=== PATIENT | male | born 1930 | race Caucasian/White ===

== ENCOUNTER 2016-12-16 02:58 | Inpatient (IN) | payer OTHER ==
[2016-12-16] VITALS (8 sets, daily range): BP systolic 102–136; BP diastolic 48–68
[~2016-12-16] VITALS: Ht 175.2 cm; Wt 68.1 kg
--- NOTE | ~2016-12-16 | PR ---
[place], [place] PROGRESS NOTE NAME: ROSEANNE RAMIREZ UNIT #: [id number] ROOM: 509 DOCTOR: ANJELICA GENAO MD BIRTHDATE: [birth year] DOS: 12/18/2016 SUBJECTIVE: The patient is doing better, does not have any complaints. He has been eating the pureed diet without a problem. OBJECTIVE: VITAL SIGNS: Graphic trend shows a pressure of 128/60, pulse of 57, respirations 22, temperature 97.9. LUNGS: Diminished breath sounds. No wheezes heard this morning. HEART: Regular. ABDOMEN: Soft. EXTREMITIES: Without any edema, chronic eschar of the heel. LABORATORY DATA: Urine culture shows Enterococcus faecalis, which is sensitive to ampicillin. Blood culture shows no bacterial growth. ASSESSMENT AND PLAN: 1. Aspiration pneumonia. The patient is on a pureed diet and is tolerating it. 2. Hypoxic respiratory failure from pneumonia, which is resolving. 3. Urinary tract infection with Enterococcus faecalis, adjustments in meds made. 4. Adult failure to thrive. The patient is awaiting precertification from the insurance company [facility]. ANJELICA GENAO MD CM:PNTRANS [phone] ANJELICA GENAO MD 12/19/16 0156 interface
--- NOTE | ~2016-12-16 | PR ---
[place], [place] PROGRESS NOTE NAME: ROSEANNE RAMIREZ UNIT #: [id number] ROOM: 509 DOCTOR: ANJELICA GENAO MD BIRTHDATE: [birth year] DOS: SUBJECTIVE: The patient's family was feeding him. He aspirated and developed a pneumonia. He has been kept n.p.o. for a speech study. OBJECTIVE: VITAL SIGNS: Graphic trend shows a pressure of 132/56, pulse of 74, respirations 20, temperature 98.2. LUNGS: Diminished breath sounds, scattered rhonchi, but clearer than yesterday. HEART: Regular. ABDOMEN: Soft, scaphoid. EXTREMITIES: Without any edema. Foot splints bilaterally. LABORATORY DATA: Urine culture shows heavy gram-positive cocci, no identification is available yet. ASSESSMENT AND PLAN: 1. Aspiration pneumonia, on IV antibiotics. 2. Hypoxic respiratory failure. Dr. Ramirez is following. The patient's hypoxemia seems to have corrected. 3. Urinary tract infection with gram-positive cocci. We will readjust antibiotics once we have the results of the cultures. 4. Adult failure to thrive, to go back to [place] when more stable. ANJELICA GENAO MD CM:PNTRANS [phone] ANJELICA GENAO MD 12/17/16 1039 interface
--- NOTE | ~2016-12-16 | PROC NOTE ---
[place], [place] PROCEDURE NOTE NAME: ROSEANNE RAMIREZ UNIT #: [id number] ROOM: 509 DOCTOR: KOSTAS AVILES BIRTHDATE: [birth year] DOS: 12/17/2016 MODIFIED BARIUM SWALLOW LOCATION: [facility], room 509, bed 1. DOCTOR: Dr. Quesada. RADIOLOGIST: Dr. Olea. BACKGROUND INFORMATION: The patient is an 86-year-old male who was seen for modified barium swallow. This test was ordered to rule out aspiration. The patient was observed coughing and choking at bedside when being fed by family. The patient is diagnosed with pneumonia and COPD. Further medical history includes BPH. The patient is currently n.p.o. For today's assessment, he was alert with generalized weakness. He was able to follow simple commands. The patient was wearing oxygen via nasal cannula. Oral peripheral examination reviewed edentulous status. Lingual and labial skills were within functional limits in terms of strength, range of motion and coordination. Buccal skills were weak. The patient was able to volitionally cough. He was unable to volitionally swallow. METHODS AND MATERIALS USED FOR THE EXAM: The patient was positioned in the lateral plane and the examination was viewed under fluoroscopy. The patient was presented with a variety of consistencies to assess swallowing skills including applesauce mixed with barium presented in half teaspoon amounts and both nectar and honey-thick barium taken by cup in single sip size amounts. ORAL PHASE: The patient achieved adequate labial seal around cup and spoon with no anterior loss. Bolus formation and transit were mildly impaired with all consistencies. Piecemeal swallow of these consistencies was also displayed. The patient exhibited adequate tongue to palate contact. Tongue to posterior pharyngeal wall contact was mildly impaired with all consistencies. Velar functioning was within normal limits. PHARYNGEAL PHASE: The pharyngeal phase occurred within a timely manner. His swallow was weak in general. Following the swallow residue was observed in the vallecula. This cleared with cues to re-swallow. Transient penetration occurred with nectar thick liquid. No penetration occurred with honey-thick barium. There was no aspiration with any consistency. ESOPHAGEAL PHASE: This phase of the swallow was not formally assessed during this examination. IMPRESSIONS AND RECOMMENDATIONS: Based upon assessment results, this 86-year-old patient exhibited a mild oropharyngeal dysphagia. Bolus formation and oral transit were impaired with all given consistencies. Residue was observed in the pharynx post-swallow, but cleared with cues to re-swallow Transient penetration occurred with nectar liquid. Recommend pureed diet with honey-thick liquids. Recommend the patient be seated upright for meals, given [place], [place] PROCEDURE NOTE NAME: ROSEANNE RAMIREZ UNIT #: [id number] ROOM: [facility] DOCTOR: KOSTAS AVILES BIRTHDATE: [birth year] small bites and sips, and cues to double swallow to clear residue. Follow up therapy is recommended, focusing on strengthening exercises strategies and education to ensure safety with highest level diet. Results and recommendations were shared with the patient's nurse who verbalized understanding. Thank you very much for this referral. Should you have any questions regarding this patient, please contact the speech pathologist at [phone]. KOSTAS AVILES CM:PROCNOTE:PROCEDURE NOTE [id number] KOSTAS AVILES
--- NOTE | ~2016-12-16 | PR ---
[place], [place] PROGRESS NOTE NAME: ROSEANNE RAMIREZ UNIT #: [id number] ROOM: 509 DOCTOR: INDIA TALAMANTES MD BIRTHDATE: [birth year] DOS: 12/17/2016 PULMONARY PROGRESS NOTE SUBJECTIVE: He has been noted much more awake and alert this morning. He has not been noted symptoms of chest pain. The patient has been noted with some coughing, but there was no sputum expectoration. He has a chest x-ray, PA and lateral view repeated yesterday. OBJECTIVE: VITAL SIGNS: Showed normal temperature, respiratory rate 20, heart rate 74, blood pressure 132/56. Pulse oxygen saturation on 2 liters nasal cannula 96% saturation. HEENT: Examination shows no new change. NECK: Supple. CARDIOVASCULAR SYSTEM: S1, S2 audible. LUNGS: For the patient was noted without any wheezing or crackles at the present time. ABDOMEN: Flat, soft, nontender. EXTREMITIES: Shows no edema, clubbing or cyanosis. LABORATORY DATA: Labs on this patient. The chest x-ray of the patient that was done for the patient yesterday for this patient was reviewed, PA and lateral view for this patient shows patchy infiltration was noted in the lower lungs bilaterally. IMPRESSION: 1. The patient who has been currently admitted to the hospital, being treated for patient with bilateral lower lobe pneumonia, which has been noted more clearly visible with the chest x-ray of yesterday. 2. Rule out left hilar mass as well. 3. History of chronic obstructive pulmonary disease and benign prostatic hypertrophy. PLAN OF TREATMENT: Continue antibiotics for the patient, close monitoring with continued current antibiotic. The patient has been ordered the modified barium swallow for the patient to be done for this patient today for further assessment. Continue other previous treatment therapy, plan of management. Usual care. Supportive plan of management and other care. [place], [place] PROGRESS NOTE NAME: ROSEANNE RAMIREZ UNIT #: [id number] ROOM: 509 DOCTOR: INDIA TALAMANTES MD BIRTHDATE: [birth year] INDIA GAMEZ MD CM:PNTRANS [phone] INDIA SHAH MD 12/17/162204 interface
--- NOTE | ~2016-12-16 | PR ---
[place], [place] PROGRESS NOTE NAME: [id number] UNIT #: [id number] ROOM: 509 DOCTOR: ANJELICA GENAO MD BIRTHDATE: [birth year] DOS: 12/19/2016 SUBJECTIVE: The patient is about the same does not have any new changes. He is resting comfortably. PHYSICAL EXAMINATION: VITAL SIGNS: Blood pressure is 128/62, pulse of 64, respirations 20, temperature 97.2. LUNGS: Diminished breath sounds. No wheezes, rales or rhonchi heard this morning. HEART: Regular. ABDOMEN: Obese, soft, nontender. EXTREMITIES: Without any edema, chronic eschar of the heels. LABORATORY DATA: Urine culture, Enterococcus faecalis. ASSESSMENT AND PLAN: 1. Aspiration pneumonia, improving. 2. Modified barium swallow showing evidence of aspiration, doubt appropriate diet was started. 3. Urinary tract infection with Enterococcus faecalis. 4. Adult failure to thrive following a hip fracture. 5. 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 6. 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 7. Iron deficiency anemia. 8. Major depression, mild, recurrent. 9. Hypoxic respiratory failure. 10. Mild protein calorie malnutrition. MEDICATIONS ON DISCHARGE: Will be Cipro 500 mg twice daily for 5 days, tamsulosin 0.4 mg daily, iron 325 daily, multivitamin 1 tablet daily, Remeron 15 at bedtime, Percocet 5 q. 6 p.r.n., DuoNebs q. 6 p.r.n., Avodart 0.5 daily, Santyl for local application, ____ [address] Dickson as an outpatient for possible suprapubic catheter placement. Macrodantin 100 mg q.i.d. for 5 days. The patient is 86 years old, comes in with complaints of difficulty breathing and hypoxemia. Please refer H and P for details. After the patient was seen in the Emergency Room, he was diagnosed with pneumonia, he was admitted. After admission, he was placed on IV antibiotics. He was found to be choking on food, so he is kept n.p.o. Modified barium swallow was performed. Dr. Ramirez also saw the patient in consultation. ESR was elevated at 62. Modified barium swallow showed that the patient indeed did aspirate and the recommendation from speech was to pureed diet with ____ in his water, but for consistency of honey thick. Make sure the patient also get small bites and sips and double swallows to clear residue. The patient has done well, one well after the dietary change was initiated. He has not had any cough or wheezing spells, so the plan therefore is to discharge him to home. Urine culture did come back showing Enterococcus faecalis, which is resistant to Cipro, but sensitive to Macrobid. Blood cultures have come back negative. MRSA of the nares was negative. The patient [place], [place] PROGRESS NOTE NAME: ROSEANNE RAMIREZ UNIT #: [id number] ROOM: 509 DOCTOR: ANJELICA GENAO MD BIRTHDATE: [birth year] is overall stable and improved. The plan is to continue physical therapy at the assisted. PT/OT has been working with him here. Social service has been consulted for discharge back to the assisted. ANJELICA GENAO MD CM:PNTRANS [phone] ANJELICA GENAO MD 12/19/16 0757 interface
--- NOTE | ~2016-12-16 | PR ---
[place], [place] PROGRESS NOTE NAME: ROSEANNE RAMIREZ UNIT #: [id number] ROOM: 509 DOCTOR: INDIA TALAMANTES MD BIRTHDATE: [birth year] DOS: 12/19/2016 PULMONARY FOLLOWUP NOTE SUBJECTIVE: He has been noted comfortable at this time, eating his breakfast. He has not been noted with symptoms of chest pain or any abdominal pain. Coughing and chest congestion of the patient has been gradually subsiding. OBJECTIVE: VITAL SIGNS: Shows normal temperature, respiratory rate 18, heart rate of 58-64, blood pressure 135/56-128/62. Pulse oxygen saturation of the patient recorded on 2 liters nasal cannula 97% saturation. HEENT: Examination shows no new change. CARDIOVASCULAR SYSTEM: S1, S2 audible. LUNGS: The patient was noted without any wheeze or crackles at the present time. ABDOMEN: Soft, nontender. LABORATORY DATA: Labs on this patient. Chest x-ray of the patient, PA lateral view of the patient that was done this morning show small basilar area of infiltration noted more pronounced in the right and the left lower lobe. The chest x-ray of today was compared to the previous chest x-ray, which was done on this patient of 12/16 for the patient noted with patchy infiltration noted with interval development of small pleural fluid suspected. IMPRESSION: 1. The patient with, appears like a pleural fluid for the patient with area of infiltration atelectasis with acute aspiration pneumonia was noted. Congestive heart failure for the patient with fluid overload for the patient was suspected. 2. Overall severe debility. PLAN OF TREATMENT: The patient will be started on the diuretic for patient as orally of Lasix. Other supportive therapy, plan and management. I also ordered the potassium for this patient as well. The labs for the patient for monitoring of BUN and creatinine and electrolytes was ordered. Repeat chest x-ray in a couple of days for the patient to reassess the patient's response to the current treatment. [place], [place] PROGRESS NOTE NAME: ROSEANNE RAMIREZ UNIT #: [id number] ROOM: 509 DOCTOR: INDIA TALAMANTES MD BIRTHDATE: [birth year] INDIA GAMEZ MD CM:PNTRANS [phone] INDIA SHAH MD 12/19/16 232 interface
--- NOTE | ~2016-12-16 | PR ---
[place], [place] PROGRESS NOTE [id number] #: [id number] ROOM: 509 DOCTOR: ANJELICA GENAO MD BIRTHDATE: [birth year] DOS: 12/16/2016 HISTORY OF PRESENT ILLNESS: This patient is 86 years old, resident of [facility], was brought in with complaints of shortness of breath. This morning, the patient is sleepy, does not have any complaints. He denies having any chest pains, palpitations, and he seems to be breathing easier than what I was told during the night. PAST MEDICAL HISTORY: Significant for: 1. Multiple hospital admissions with pneumonia. 2. History of fracture of the femur with frailty and falls. 3. Recent hospitalization with acute renal failure from acute retention of urine with a chronic Ambrocio catheter. He is supposed to see Dr. Dickson as an outpatient. 4. Hypoxic respiratory failure. 5. Protein calorie malnutrition. 6. Mild major depression. MEDICATIONS: His medications currently that he is on are breathing treatments, Avodart, iron, mirtazapine, multivitamin, Percocet, tamsulosin. SOCIAL HISTORY: Smoker of about 1/2-1 pack of cigarettes a day. Denies using any alcohol. OBJECTIVE EXAMINATION: GENERAL: He is awake and alert and oriented. Does not appear to be in whole lot of respiratory distress this morning. He was quite short of breath yesterday before he was sent out to the Emergency Room. VITAL SIGNS: Shows a temperature of 99.5, pulse of 78, respirations 18, blood pressure 130/70. LUNGS: Diminished breath sounds. A few scattered rhonchi heard bilaterally. HEART: Regular. ABDOMEN: Obese, soft, nontender. EXTREMITIES: Without any edema. Eschar present on both heels. ASSESSMENT AND PLAN: 1. The patient who presents with pneumonia, possible gram-negative bilateral. The patient is placed on IV antibiotics. 2. Acute hypoxic respiratory failure. The patient has a consultation with Dr. Ramirez. Oxygen supplementation to be ordered. 3. Adult failure to thrive. The patient will need continued PT, OT. 4. Recent hip fracture. I will keep him off the Percocet for right now. Continue Tylenol. 5. 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 The patient is to see Dr. Dickson as an outpatient. [place], [place] PROGRESS NOTE NAME: ROSEANNE RAMIREZ UNIT #: [id number] ROOM: 509 DOCTOR: ANJELICA GENAO MD BIRTHDATE: [birth year] ANJELICA GENAO MD CM:PNALIVIA [phone] ANJELICA GENAO MD 12/16/16 1202 interface
--- NOTE | ~2016-12-16 | PR ---
[place], [place] PROGRESS NOTE NAME: ROSEANNE RAMIREZ UNIT #: [id number] ROOM: 509 DOCTOR: INDIA TALAMANTES MD BIRTHDATE: [birth year] DOS: 12/18/2016 SUBJECTIVE: He has been noted comfortable at this time responding to the treatment. The patient has not been noted any symptoms of chest congestion at this time. Coughing has been subsiding. Urine culture noted with enterococcus species as well. OBJECTIVE: VITAL SIGNS: For the patient, which has been recorded showed the temperature of the patient recorded normal, respiratory rate 20, heart rate 69, blood pressure 111/53-128/60. Pulse oxygen saturation for the patient on 2 liters nasal cannula 94% saturation. HEENT: Examination shows head was atraumatic. Eyes nonicterus. NECK: Supple. CARDIOVASCULAR: S1, S2 is audible. LUNGS: For this patient was noted without any wheezing. Basilar crackles are noted. ABDOMEN: Soft, nontender. LABORATORY DATA: Urine culture was noted with evidence of Enterococcus taken on the of this month. Blood cultures shows no bacterial growth. The patient has a completion of modified barium swallow done yesterday for this patient was described as there was some stasis noted in the vallecula for this patient with passive transient penetration noted nectar thick consistency. IMPRESSION: 1. Acute bilateral basilar aspiration pneumonia. 2. Urinary tract infection was noted as well. 3. Chronic obstructive pulmonary disease. 4. Benign prostatic hypertrophy. PLAN OF TREATMENT: Order the CT scan of the chest patient with IV contrast for the patient to assess the left hilar area if necessary after review of the CT scan for tomorrow, which has been ordered. Assess the pneumonia. Continue the previous therapy, plan of management and care. Usual care. Other supportive plan of management and treatments. [place], [place] PROGRESS NOTE NAME: ROSEANNE RAMIREZ UNIT #: [id number] ROOM: 509 DOCTOR: INDIA TALAMANTES MD BIRTHDATE: [birth year] INDIA GAMEZ MD CM:PNTRANS [phone] INDIA SHAH MD 12/19/16 0240 interface
--- NOTE | ~2016-12-16 | CON ---
[place], [place] REPORT OF CONSULTATION NAME: ROSEANNE RAMIREZ UNIT #: [id number] ROOM: 509 DOCTOR: FRANCO SHAH MD,INDIA BIRTHDATE: [birth year] DOS: 12/16/2016 PULMONARY CONSULTATION EVALUATION AND MANAGEMENT CONSULTATION REQUESTED BY: Robyn Quesada MD REASON FOR CONSULTATION: Assess the patient for acute pneumonia management. HISTORY OF PRESENT ILLNESS: An 86-year-old white male who has been a noted resident of [facility] patient. He has been brought to the hospital, the patient in the Emergency Room. The patient has been assessed in the Emergency Room via ambulance. The patient has been noted with symptoms of coughing as well as described with possibly pneumonia with a chest x-ray, which has been done. The patient has been admitted to the hospital for further medical management. He has not been able to give me any history. All the history of the patient noted extremely limited for this patient because of the patient's inability to cooperate and give any history and have a meaningful conversation. PAST MEDICAL HISTORY: The patient has been reported for this patient history of: 1. COPD. 2. BPH. 3. History of right hip fracture and left hip fracture. 4. Herniated disk of the lower back. 5. History of urinary retention. SOCIAL HISTORY: The patient is a resident of a skilled nursing. The history of tobacco use was noted previously. There was no history of alcohol or illicit drug use. The details about tobacco use were unknown. PAST SURGICAL HISTORY: Noted with a left hip and the right hip arthroplasty in the past. FAMILY HISTORY: Noted for cancer. MEDICATIONS: Which has been administered at the nursing facility for this patient were noted with medication reconciliation list for this patient obtained by the nursing staff as the use of DuoNeb, Avodart, ferrous sulfate, Remeron, multivitamin, Percocet, Flomax, and other p.r.n. medications as well as management of the wounds of the coccyx. DRUG ALLERGY HISTORY: THE PATIENT WAS NOTED ALLERGY: 1. PENICILLIN. 2. SULFA DRUGS. 3. CHLORAMINE. 4. PROZAC. PHYSICAL EXAMINATION: GENERAL: This is an 86-year-old white male who has been noted comfortably lying [place], [place] REPORT OF CONSULTATION NAME: ROSEANNE RAMIREZ UNIT #: [id number] ROOM: 509 DOCTOR: FRANCO SHAH MD,INDIA BIRTHDATE: [birth year] in the bed without any distress, does not have any verbal communication. The patient appeared to be mildly lethargic at this time as well. VITAL SIGNS: The height for the patient noted as 5 feet 9 inches, weight of 150 pounds. BMI 22. Vital signs for the patient, which have been recorded shows the temperature recorded as normal, respiratory rate 18-20, heart rate 69-72, blood pressure 115/60-134/60. Intake for the patient recorded as ____ mL since admission. Pulse oxygen saturation on 2 L nasal cannula was 94% saturation recorded. HEENT: Examination shows head was atraumatic. Eyes nonicterus. CARDIOVASCULAR SYSTEM: S1, S2 audible. LUNGS: The patient was noted with moderate reduction of the breath sounds were noted in the lungs bilaterally for this patient without any wheezing. Occasional crackles are present in the left and the right lung base. ABDOMEN: Soft, nontender, flat. EXTREMITIES: The patient showed no edema, clubbing or cyanosis. LABORATORY DATA: Chest x-ray that was done for this patient on this admission was personally reviewed, shows evidence of small infiltration noted in the left lower lung for this patient. The chest x-ray was rotated giving appearance of a large left hilar area for this patient most likely as a result of that. The left lung was noted clear of any acute pulmonary infiltration. Change in COPD, hyperinflation of the patient was also observed for patient because of large lung volumes. CBC that was done for the patient on 12/16/2016, hemoglobin 9.2, hematocrit 30.3, WBC count and platelet count were normal. CMP of the patient on 12/08/2016, normal BUN and creatinine for this patient. Troponin was normal. ESR for the patient, 12/16/2016 was elevated at 62. IMPRESSION: 1. Possibility of acute aspiration pneumonia, the patient currently coughing. The patient's right lower lobe was suspected. 2. Rule out any left hilar problem. The patient with lymphadenopathy mass lesion with appropriate position chest x-ray and also consider CT scan of the chest if necessary for further assessment if the x-ray for the patient PA and lateral was not able to answer this question. Bronchodilator will be continued. Continue antibiotic. The patient with current acute pneumonia of the patient with gram-positive organisms. Other supportive therapy, plan of management. Usual treatment, other plan of care. Blood cultures will be monitored. Sputum culture will be obtained. The patient is able to expectorate any sputum for this patient as well. In the meantime monitoring cultures of the blood. Other supportive plan of care. Further treatment changes will be done based on progression of the illness. At this time of assessment, the patient does not show any symptoms and finding consistent with acute exacerbation of COPD; however, this will be closely monitored since the patient may develop acute exacerbation of chronic obstructive pulmonary disease with the current acute pulmonary infection. [place], [place] REPORT OF CONSULTATION NAME: ROSEANNE RAMIREZ UNIT #: [id number] ROOM: [facility] DOCTOR: INDIA TALAMANTES MD BIRTHDATE: [birth year] INDIA GAMEZ MD CM:CONSTR:REPORT OF CONSULTATION 1224 12/17/16 0455 interface
[~2016-12-16 02:58] MED LIST: ANTIBIOTIC O500 U/GM TP; ANTIVERT/2525 MG PO; AVODART0.5 M1 PO; B12,B-12,B 12500 MCG PO; B121000 MCG/1 IM; CELEBREX200 MG PO; CIPRO500 MG PO; CIPROFLOXACIN500 MG PO; COMPLETE SENIOR1 TA1 PO; DOXYCYCLINE100 M3 PO; DUONEB 3 MG/3 ML3 M1 NEB; FEROSUL325 MG PO; FLOMAX0.4 MG PO; LEVAQUIN LEVA-750 MG PO; LEVAQUIN750 MG PO; LORTAB 10/500 51 TA1 PO; LORTAB 10/500 51 TAB PO; LORTAB 5/3251 TAB PO; LOVENOX30 MG/0.3 SC; MEGACE 40400 MG/10 PO; MIRTAZAPINE15 M2 PO; MOBIC7.5 MG PO; MUCINEX ER600 MG PO; MUCINEX600 MG PO; NAPRELAN750 MG PO; NORCO 325 MG-51 TAB PO; PERCOCET 325 MG1 TA2 PO; PREDNICOT20 MG PO; PREDNISONE20 MG PO; PROTONIX20 MG PO; Percocet 325 MG1 TAB PO; ULCER MED; VITAMIN B COMPL1 CAP PO; VITAMIN C500 M4 PO; VITAMIN C500 MG PO; VITAMIN E100 I1 PO; Ventolin 02.5 MG/3 M INH; XANAX0.25 MG PO; ZANTAC150 MG PO
[2016-12-16 03:20] LABS: BASO # 0.1 10*3/uL (0.0-0.1); BASO % 0.5 % (0.0-1.0); EOS # 0.4 10*3/uL (0.0-0.4); EOS % 3.8 % (1.0-4.0); HEMATOCRIT 30.3 % (42.0-52.0); HEMOGLOBIN 9.2 g/dl (14.0-18.0); IG # 0.1 10*3/uL (0.0-0.1); LYMPH # 3.1 10*3/uL (1.3-4.4); LYMPH % 32.5 % (27.0-41.0); MEAN CORPUSCULAR HGB 24.6 pg (27.0-31.0); MEAN CORPUSCULAR HGB CONC 30.4 g/dl (33.0-37.0); MEAN PLATELET VOLUME 8.1 fl (9.6-12.3); MONO # 0.9 10*3/uL (0.1-1.0); MONO % 9.1 % (3.0-9.0); NEUT # 5.1 10*3/uL (2.3-7.9); NEUT % 53.5 % (47.0-73.0); PLATELET COUNT AUTOMATED 264 10*3/uL (130-400); RED BLOOD COUNT 3.74 10*6/uL (4.50-5.90); RED CELL DISTRI WIDTH 24.6 % (0-14.5); WHITE BLOOD COUNT 9.5 10*3/uL (4.8-10.8)
[2016-12-16 03:38] LABS: ALBUMIN 2.2 gm/dl (3.1-4.5); ALKALINE PHOSPHATASE 59 U/L (45-117); BILIRUBIN, TOTAL 0.3 mg/dl (0.2-1.0); BUN 21 mg/dl (7-24); CARBON DIOXIDE 28 mmol/L (21-32); CHLORIDE 110 mmol/L (98-107); EST GLOM FILT AFRICAN AMERICAN > 60 ml/min; GLUCOSE 79 mg/dL (65-99); POTASSIUM 4.4 mmol/L (3.5-5.1); SGOT/AST 11 IU/L (3-35); SGPT/ALT 15 U/L (12-78); SODIUM 145 mmol/L (136-145); TOTAL PROTEIN 6.6 gm/dL (6.4-8.2)
[2016-12-16 03:39] LABS: TROPONIN I < 0.015 ng/ml (<0.045)
[2016-12-16] MEDS ORDERED: SANTYL250 U/GM T (03:44)
[2016-12-16 04:23] LABS: BILIRUBIN NEGATIVE (NEGATIVE); BLOOD 2+ (NEGATIVE); CLARITY SL CLOUDY (CLEAR); COLOR YELLOW (YELLOW); GLUCOSE NEGATIVE (NEGATIVE); KETONE NEGATIVE (NEGATIVE); LEUKO ESTERASE 2+ (NEGATIVE); NITRITE NEGATIVE (NEGATIVE); PH 5.5 (5.0-9.0); PROTEIN TRACE (NEGATIVE); UROBILINOGEN 0.2 E.U./dl (0.2-1.0)
[2016-12-16 04:30] LABS: BACTERIA 2+; RBC 31-40 rbc/hpf (0-2); URINE REFLEX COMMENT YES (NO); WBC 31-40 wbc/hpf (0-5)
[2016-12-16] MEDS ORDERED: PROSOURCE PLUS887 ML PO (05:38)
[2016-12-17] VITALS: BP 123/66
[2016-12-17 08:00] VITALS: BP 132/56
[2016-12-17 12:00] VITALS: BP 128/66
[2016-12-17 16:00] VITALS: BP 133/53
[2016-12-17 20:00] VITALS: BP 121/56
[2016-12-18] VITALS: BP 120/64
[2016-12-18 08:00] VITALS: BP 128/60
[2016-12-18 12:00] VITALS: BP 111/53
[2016-12-18 16:00] VITALS: BP 104/58
[2016-12-18 20:00] VITALS: BP 127/62
[2016-12-19] VITALS: BP 128/62
[2016-12-19] MEDS ORDERED: CIPRO500 MG PO (06:49)
[2016-12-19 08:00] VITALS: BP 135/56
== END 2016-12-19 11:50 | disposition other institution (70) | DRG 177 ==
LOC: ED 02:58 → 5E 04:20 → EDHOLD 04:20 → 5E 04:29
PROVIDERS: Emergency Medicine
PROC: BD11YZZ Fluoroscopy of Esophagus using Other Contrast (ICD-10-PCS; principal; 2016-12-17)
DX: J69.0 Pneumonitis due to inhalation of food and vomit (principal); J96.01 Acute respiratory failure with hypoxia; N39.0 Urinary tract infection, site not specified; J44.0 Chronic obstructive pulmonary disease with (acute) lower respiratory infection; F33.0 Major depressive disorder, recurrent, mild; E44.1 Mild protein-calorie malnutrition; J15.6 Pneumonia due to other Gram-negative bacteria; R62.7 Adult failure to thrive; R33.9 Retention of urine, unspecified; B96.89 Other specified bacterial agents as the cause of diseases classified elsewhere; R91.8 Other nonspecific abnormal finding of lung field; B95.2 Enterococcus as the cause of diseases classified elsewhere; N40.0 Benign prostatic hyperplasia without lower urinary tract symptoms; D50.9 Iron deficiency anemia, unspecified; Z88.2 Allergy status to sulfonamides; Z88.0 Allergy status to penicillin; Z88.8 Allergy status to other drugs, medicaments and biological substances; Z87.891 Personal history of nicotine dependence; Z68.25 Body mass index [BMI] 25.0-25.9, adult; I50.9 Heart failure, unspecified

== ENCOUNTER → 2017-01-24 | Outpatient (CLI) | payer OTHER ==
[~2017-01-24] MED LIST changes: +PROSOURCE PLUS887 ML PO; +SANTYL250 U/GM T
[2017-01-24 16:34] LABS: BASO # 0.1 10*3/uL (0.0-0.1); BASO % 0.7 % (0.0-1.0); EOS # 0.5 10*3/uL (0.0-0.4); EOS % 5.3 % (1.0-4.0); HEMATOCRIT 33.1 % (42.0-52.0); HEMOGLOBIN 10.4 g/dl (14.0-18.0); LYMPH # 2.5 10*3/uL (1.3-4.4); MEAN CELL VOLUME 80.7 fl (80.0-94.0); MEAN CORPUSCULAR HGB 25.4 pg (27.0-31.0); MEAN CORPUSCULAR HGB CONC 31.4 g/dl (33.0-37.0); MEAN PLATELET VOLUME 8.7 fl (9.6-12.3); MONO # 0.8 10*3/uL (0.1-1.0); NEUT # 5.3 10*3/uL (2.3-7.9); NEUT % 57.6 % (47.0-73.0); PLATELET COUNT AUTOMATED 387 10*3/uL (130-400); RED CELL DISTRI WIDTH 19.3 % (0-14.5); WHITE BLOOD COUNT 9.2 10*3/uL (4.8-10.8)
[2017-01-24 16:55] LABS: ALBUMIN 2.1 gm/dl (3.1-4.5); ALKALINE PHOSPHATASE 67 U/L (45-117); BILIRUBIN, TOTAL 0.3 mg/dl (0.2-1.0); BUN 9 mg/dl (7-24); CARBON DIOXIDE 26 mmol/L (21-32); CHLORIDE 105 mmol/L (98-107); EST GLOM FILT AFRICAN AMERICAN > 60 ml/min; GLUCOSE 128 mg/dL (65-99); POTASSIUM 3.8 mmol/L (3.5-5.1); SGOT/AST 11 IU/L (3-35); SGPT/ALT 6 U/L (12-78); SODIUM 142 mmol/L (136-145); TOTAL PROTEIN 6.5 gm/dL (6.4-8.2)
== END | disposition home or self-care (01) ==
LOC: ZVN 16:29
PROVIDERS: Family Medicine
DX: S72.001D Fracture of unspecified part of neck of right femur, subsequent encounter for closed fracture with routine healing (principal); J69.0 Pneumonitis due to inhalation of food and vomit; R33.9 Retention of urine, unspecified; X58.XXXD Exposure to other specified factors, subsequent encounter

== ENCOUNTER 2017-02-02 13:13 | Inpatient (IN) | payer OTHER ==
[~2017-02-02] VITALS: Ht 177.8 cm; Wt 67.4 kg
--- NOTE | ~2017-02-02 | PR ---
[place], [place] PROGRESS NOTE NAME: ROSEANNE RAMIREZ UNIT #: [id number] ROOM: 421 DOCTOR: ANJELICA GENAO MD BIRTHDATE: [birth year] DOS: 02/04/2017 SUBJECTIVE: The patient is doing fine without any complaints. He did have his PICC line placement yesterday. OBJECTIVE: VITAL SIGNS: Blood pressure is 128/60, pulse of 60, respirations 20, temperature 98.2. LUNGS: Clear. HEART: Regular. ABDOMEN: Softly obese, nontender. EXTREMITIES: Without any edema. LABORATORY DATA: Urine culture shows heavy Gram-positive cocci, which is sensitive to penicillin and vancomycin. ASSESSMENT AND PLAN: 1. Enterococcus faecalis in the urine. The patient is allergic to penicillin, so he was admitted for IV antibiotics. PICC line was placed. He is going to go home today with home IV. 2. High risk of aspiration. The patient is again encouraged to eat pureed diet with honey thickened consistency of liquids, which apparently he was not following at home. 3. Chronic eschar of the right heel already seen by Dr. Sanchez. No new changes made in the treatment plan. ANJELICA GENAO MD CM:PNTRANS 3 [phone] ANJELICA GENAO MD 02/04/172236 interface
--- NOTE | ~2017-02-02 | CON ---
[place], [place] REPORT OF CONSULTATION NAME: ROSEANNE RAMIREZ UNIT #: [id number] ROOM: 421 DOCTOR: SONIA SanchezHUGO BIRTHDATE: [birth year] DOS: 02/02/2017 WOUND CARE CONSULTATION HISTORY OF PRESENT ILLNESS: This is an 86-year-old male who was sent here by his primary care physician for a urinary tract infection. He has a chronic Ambrocio since 10/2016 and stated that apparently there was a sediment noted in the urine bag and tested positive for UTI. He was started on Levaquin, but the culture was resistant to that and therefore, they were asked to go to the Emergency Room Department to be treated for this. PAST MEDICAL HISTORY: Significant for acute renal failure, arthritis of the shoulder, BPH, closed right hip fracture, COPD exacerbation, pressure ulcer of the right heel, which I had seen him for in the past back in November for this. He has a history of depression, a fracture of the left hip with repair, herniated disk, iron deficiency anemia, pneumonia, history of renal cyst, sacral pressure ulcer and a history of urinary retention. 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 SOCIAL HISTORY: He is a smoker. He does not drink or use illicit drugs. FAMILY HISTORY: For cancer. ALLERGIES: To CHLOROMYCETIN, PENICILLIN, SULFA ANTIBIOTICS. MEDICATIONS: His medications that I have been ordered are currently. He has been ordered vancomycin IV. His other medications that he has are per Emergency Room documentation are as follows: Levaquin 250 p.o. daily, Flomax 0.4 daily, paroxetine 10 mg p.o. daily, DuoNeb inhalation daily, Boost Plus 240 p.o. b.i.d., starch thicken up 850 p.r.n. late liquid intake, mirtazapine 15 mg at bedtime, finasteride 5 mg p.o. daily, Megace 1 mL p.o. daily. REVIEW OF SYSTEMS: This patient is extremely hard of hearing and other review of systems are unobtainable at this time, although the pressure the patient does note that he has a sore on his heel, but he is pretty adamant that it does not hurt him. OBJECTIVE: VITAL SIGNS: Temperature is 98.2, pulse of 67, respirations 18, blood pressure is 136/60. GENERAL: This is an elderly male who is lying in bed in no acute distress. He is very pleasant and cooperative, slightly pale to examination. Oropharynx is moist. Extraocular movements are intact, but I do not appreciate any JVD. LUNGS: Fairly clear to auscultation anteriorly. CARDIOVASCULAR: S1, S2 regular rate and rhythm. ABDOMEN: Soft and nontender. EXTREMITIES: He has no edema. He has positive peripheral pulses. He has good [place], [place] REPORT OF CONSULTATION NAME: ROSEANNE RAMIREZ UNIT #: [id number] ROOM: 421 DOCTOR: HUGO SCOTT M.D. BIRTHDATE: [birth year] capillary refill. He seems to be moving all 4 extremities equally, although is very markedly weak and debilitated in general. He does have a pressure ulcer, which is unstageable. Its eschar, it is thick, it is stable on the right heel. It does seem that it is starting to lift off a little bit on its own. There is no sign of an infection and it is not tender. His white count is 10. His hemoglobin is 10, platelets are 325. Chem-7 shows a BUN of 7, creatinine of 0.67, albumin is 2.0. His urinalysis is 1+ blood, 1+ protein, 5-10 WBC, 3+ sediment, 4+ bacteria. Chest x-ray shows emphysema, limited evaluation. ASSESSMENT AND PLAN: Unstageable pressure ulcer. The measurements per my measurements are approximately 3 cm x 3.2, 0.0 in depth. It is unstageable. It is stable. It looks like the measurements are smaller than the last time we had seen him back in November. At that time, the measurements were bigger. It seems to be starting to lift up on its own. I would continue to just keep this dry and continue skin prep daily and just keep it offloaded. Eventually, this hopefully will start to lift up on its own. If the patient would like to come to the Wound Clinic for wound care that would be recommended if the family is okay with that. HUGO SCOTT MD CM:CONSTR:REPORT OF CONSULTATION 1816 02/03/17 1601 interface
--- NOTE | ~2017-02-02 | DS ---
[place], [place] DISCHARGE SUMMARY NAME: ROSEANNE RAMIREZ UNIT #: [id number] ROOM: 421 DOCTOR: ANJELICA GENAO MD BIRTHDATE: [birth year] DOS: 02/04/2017 This patient is 86 years old. The patient was admitted on the and discharged on the . DIAGNOSES: 1. Urinary tract infection with Enterococcus faecalis. PICC line was placed for home IV antibiotics. The patient is discharged to home with visiting nurses and follow up with his PCP. 2. Adult failure to thrive. 3. History of aspiration with continued high risk for aspiration. Speech did evaluate him and suggest honey-thickened liquids as well as pureed diet. The patient is noncompliant with his diet. 4. Chronic indwelling Ambrocio catheter. 5. Benign prostatic hypertrophy. 6. 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 7. Iron deficiency anemia. 8. Mild recurrent depression. 9. Mild protein calorie malnutrition. HOSPITAL COURSE: This patient is 86 years old, very well known to us from previous admissions, comes in after a urine culture was done as an outpatient, which showed that he had Enterococcus faecalis growth in the urine and he was resistant to most of the antibiotics. The patient after admission was placed on IV vancomycin. A PICC line was placed. Social service consult was requested for possible placement. The family requested that the patient be sent home with visiting nurses and home IV. The patient has also not been compliant with his diet. Speech was consulted again, they recommended that he continue to remain on a pureed diet with honey-thickened liquids. This is again instructed to the patient and the family members. The patient is overall stable and is not having any new complaints. The plan is to discharge him to home today. Follow up as an outpatient. He has had the chest x-ray done post PICC line is not showing any new changes other than the PICC line is in place. ADDENDUM Please correct the H and P done on 02/02; it is not buttocks it is antibiotics. [place], [place] DISCHARGE SUMMARY NAME: ROSEANNE RAMIREZ UNIT #: [id number] ROOM: 421 DOCTOR: ANJLEICA GENAO MD BIRTHDATE: [birth year] ANJELICA GENAO MD CM:JAIRO [id number] ANJELICA GENAO MD 02/05/17 0349 interface
--- NOTE | ~2017-02-02 | WRIGHTHP ---
[place], [place] PATIENT HISTORY AND PHYSICAL EXAM [id number] UNIT #: [id number] ROOM: 421 DOCTOR: ANJELICA GENAO MD BIRTHDATE: [birth year] DOS: 02/02/2017 HISTORY OF PRESENT ILLNESS: The patient is 86 years old. He is known to me from previous admissions. He currently lives at home with the help of family, had a urine culture recently, which showed Enterococcus faecalis and pretty resistant to most of the antibiotics. So the patient was admitted because he could not have IV antibiotics at home. He was placed on IV vancomycin and was admitted. He does not have any complaints this morning. He looks much better than he looked in November when I last saw him. PAST MEDICAL HISTORY: Significant for, 1. Adult failure to thrive. 2. History of aspiration pneumonia. 3. UTI repeated with chronic indwelling Ambrocio. 4. Benign prostatic hypertrophy. 5. COPD with nicotine abuse. 6. Iron deficiency anemia. 7. Depression, mild, recurrent. 8. Hypoxic respiratory failure. 9. Mild protein-calorie malnutrition. The patient is 86 years old, very well known to us, comes in with complaints that he has a UTI. PHYSICAL EXAMINATION: GENERAL: He is awake, alert, and oriented, does not appear to be in any distress. VITAL SIGNS: Show a pulse of 78, respirations 14, afebrile, blood pressure 110/70. LUNGS: Clear. HEART: Regular. ABDOMEN: Soft, scaphoid. EXTREMITIES: Without any edema. Right heel has a chronic eschar. No open wounds are seen. He has a buttock wound, which is much improved since November. ASSESSMENT AND PLAN: 1. Chronic indwelling Ambrocio catheter with a urinary tract infection with Enterococcus faecalis, on IV antibiotics now. A PICC line will be placed and Social Service will be consulted for home IV antibiotics. 2. Adult failure to thrive. He is probably could go home with antibiotics, IVs, insurance approves. Otherwise, we may have to look at a short-term jail placement. He was supposed to have a suprapubic catheter placement, but this was never done. 3. Benign hypertension, controlled, not on any medications. 4. Major depression, mild, recurrent, controlled. [place], [place] PATIENT HISTORY AND PHYSICAL EXAM NAME: ROSEANNE RAMIREZ UNIT #: [id number] ROOM: 421 DOCTOR: ANJELICA GENAO MD BIRTHDATE: [birth year] ANJELICA GENAO MD CM:HISPHYS:PATIENT HISTORY AND PHYSICAL EXAMINATION [id number] ANJELICA GENAO MD 02/04/17 0829 interface
--- NOTE | ~2017-02-02 | CON ---
[place], [place] REPORT OF CONSULTATION NAME: ROSEANNE RAMIREZ UNIT #: [id number] ROOM: 421 DOCTOR: SONIA Sanchez,HUGO BIRTHDATE: [birth year] DOS: 02/02/2017 ADDENDUM He does have some peripheral vascular disease that was noted on an arterial ultrasound last time he was here back in November. Since the wound appears stable at this point, I would continue conservative management if there is difficulty healing this wound, then he may need to see vascular at some point for further input. We should also keep them offloaded. No direct pressure to the wound as much as possible. HUGO SCOTT MD CM:CONSTR:REPORT OF CONSULTATION 1817 02/03/17 0953 interface
[2017-02-02 13:26] VITALS: BP 105/62
[2017-02-02] MEDS ORDERED: MEGESTROL ACETAT1 OZ PO (13:38)
[2017-02-02] MEDS ORDERED: FINASTERIDE5 M1 PO (13:38)
[2017-02-02] MEDS ORDERED: LEVOFLOXACIN250 M2 PO (13:40)
[2017-02-02 14:01] LABS: BASO # 0.1 10*3/uL (0.0-0.1); BASO % 0.8 % (0.0-1.0); EOS # 0.5 10*3/uL (0.0-0.4); EOS % 4.7 % (1.0-4.0); HEMOGLOBIN 10.4 g/dl (14.0-18.0); LYMPH # 2.9 10*3/uL (1.3-4.4); LYMPH % 29.3 % (27.0-41.0); MEAN CELL VOLUME 82.9 fl (80.0-94.0); MEAN CORPUSCULAR HGB 25.4 pg (27.0-31.0); MEAN CORPUSCULAR HGB CONC 30.6 g/dl (33.0-37.0); MEAN PLATELET VOLUME 8.8 fl (9.6-12.3); MONO # 1.1 10*3/uL (0.1-1.0); MONO % 10.6 % (3.0-9.0); NEUT # 5.4 10*3/uL (2.3-7.9); NEUT % 54.2 % (47.0-73.0); PLATELET COUNT AUTOMATED 325 10*3/uL (130-400); RED CELL DISTRI WIDTH 18.8 % (0-14.5)
[2017-02-02 14:07] LABS: BILIRUBIN NEGATIVE (NEGATIVE); BLOOD 1+ (NEGATIVE); CLARITY CLOUDY (CLEAR); COLOR YELLOW (YELLOW); GLUCOSE NEGATIVE (NEGATIVE); KETONE NEGATIVE (NEGATIVE); LEUKO ESTERASE TRACE (NEGATIVE); NITRITE NEGATIVE (NEGATIVE); PROTEIN 1+ (NEGATIVE)
[2017-02-02 14:15] LABS: BACTERIA 4+; RBC 0-2 rbc/hpf (0-2)
[2017-02-02 14:16] LABS: CALCIUM OXALATE CRYSTALS TRACE; URINE REFLEX COMMENT YES (NO)
[2017-02-02 14:18] LABS: ALKALINE PHOSPHATASE 63 U/L (45-117); BILIRUBIN, TOTAL 0.2 mg/dl (0.2-1.0); BUN 7 mg/dl (7-24); CARBON DIOXIDE 26 mmol/L (21-32); CHLORIDE 106 mmol/L (98-107); EST GLOM FILT AFRICAN AMERICAN > 60 ml/min; GLUCOSE 89 mg/dL (65-99); POTASSIUM 4.4 mmol/L (3.5-5.1); SGOT/AST 17 IU/L (3-35); SGPT/ALT 8 U/L (12-78); SODIUM 138 mmol/L (136-145); TOTAL PROTEIN 6.4 gm/dL (6.4-8.2)
[2017-02-02 14:21] LABS: TROPONIN I < 0.015 ng/ml (<0.045)
[2017-02-02 15:32] VITALS: BP 125/59
[2017-02-02] MEDS ORDERED: PAXIL10 MG PO (15:58)
[2017-02-02 16:00] VITALS: BP 136/60
[2017-02-02] MEDS ORDERED: DUONEB 3 MG/3 ML3 M1 INH (16:00)
[2017-02-02] MEDS ORDERED: BOOST PLUS 240240 ML PO (16:01)
[2017-02-02] MEDS ORDERED: [UNRECOGNIZED DRUG - OTHER] PO (16:02)
[2017-02-02 20:00] VITALS: BP 108/55
[2017-02-03] VITALS: BP 120/69
[2017-02-03 08:00] VITALS: BP 146/56
[2017-02-03 12:00] VITALS: BP 134/66
[2017-02-03 15:47] VITALS: BP 130/60
[2017-02-03 19:57] VITALS: BP 120/55
[2017-02-04 00:37] VITALS: BP 120/56
[2017-02-04 08:00] VITALS: BP 128/60
[2017-02-04] MEDS ORDERED: VANCO 1 GR1 GM/250 M IV (08:10)
[2017-02-04 12:00] VITALS: BP 132/63
== END 2017-02-04 13:17 | disposition home health service (06) | DRG 699 ==
LOC: ED 13:13 → EDHOLD 14:52 → 4E 14:52
PROVIDERS: Student in an Organized Health Care Education/Training Program
PROC: B5181ZA Fluoroscopy of Superior Vena Cava using Low Osmolar Contrast, Guidance (ICD-10-PCS; principal; 2017-02-03)
PROC: 02HV33Z Insertion of Infusion Device into Superior Vena Cava, Percutaneous Approach (ICD-10-PCS; principal; 2017-02-03)
DX: T83.511A Infection and inflammatory reaction due to indwelling urethral catheter, initial encounter (principal); E44.1 Mild protein-calorie malnutrition; I73.9 Peripheral vascular disease, unspecified; L89.90 Pressure ulcer of unspecified site, unspecified stage; F33.9 Major depressive disorder, recurrent, unspecified; F33.0 Major depressive disorder, recurrent, mild; N39.0 Urinary tract infection, site not specified; Z68.21 Body mass index [BMI] 21.0-21.9, adult; R62.7 Adult failure to thrive; I10 Essential (primary) hypertension; B95.2 Enterococcus as the cause of diseases classified elsewhere; Z16.39 Resistance to other specified antimicrobial drug; N40.0 Benign prostatic hyperplasia without lower urinary tract symptoms; D50.9 Iron deficiency anemia, unspecified; Z88.0 Allergy status to penicillin; Z88.2 Allergy status to sulfonamides; Z88.8 Allergy status to other drugs, medicaments and biological substances

== ENCOUNTER 2017-02-05 20:46 | Inpatient (IN) | payer OTHER ==
[~2017-02-05] VITALS: Ht 177.8 cm; Wt 69.4 kg
--- NOTE | ~2017-02-05 | DS ---
[place], [place] DISCHARGE SUMMARY NAME[facility] [id number] UNIT #: [id number] ROOM: 424 DOCTOR: ZULEMA TRUJILLO MD BIRTHDATE: [birth year] DOS: 02/07/2017 DISCHARGE DIAGNOSES: 1. Acute deep vein thrombosis of the right brachiocephalic axillary vein on the right side treated with removal of the PICC line and the patient was started on anticoagulation. 2. Urinary tract infection with Enterococcus faecalis, treated with vancomycin and later with Macrobid. 3. 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 4. Suspected aspiration pneumonia by Dr. Quesada for which the patient was started on doxycycline. 5. Swallowing dysfunction. The patient uses honey thickened liquids as well as a pureed diet. 6. Benign prostatic hypertrophy and urinary retention. 7. Chronic obstructive pulmonary disease and Nicotine smoke dependence. 8. Iron deficiency anemia. 9. Mild recurrent depression. 10. Mild protein-calorie malnutrition. HOSPITAL COURSE: 1. The patient was admitted by Dr. Quesada with acute DVT of the right brachiocephalic and axillary veins. The patient had a PICC line in place at the site and he was started on apixaban yesterday. The loading dose by Dr. Quesada and cleared for discharge to home today. I will continue the Eliquis at home and remove PICC line before discharging the patient because that is apparently causing the DVT. 2. Urinary tract infection with Enterococcus faecalis, treated with IV vancomycin and then antibiotic was switched to Macrobid orally yesterday and vancomycin was discontinued. I will continue Macrobid at home for 10 days. 3. Some suspicion of aspiration pneumonia by Dr. Quesada for which he started the patient on doxycycline, which I will continue at home for 10 more days. 4. Chronic urinary retention and BPH with a chronically indwelling Ambrocio catheter, which has been continued. 5. Advanced disability and failure to thrive. I suspect recurrent admission for similar issues because he has very poor health and multiple medical issues. Advance disability age of 86 and advance failure to thrive. The patient's prognosis remains poor long-term prognosis remains poor. The patient is taken care of very well by his family at home and also with help of visiting nurses which have been consulted again. 6. Advanced centrilobular emphysema. 7. Chronic iron deficiency anemia. 8. Major depression, recurrent. 9. Mild protein calorie malnutrition, the patient was followed by dietary. DISCHARGE MANAGEMENT: ____ 15 mg at bedtime, DuoNeb q.i.d. as needed, Flomax 0.4 mg a day, paroxetine 10 mg a day, finasteride 5 mg a day, doxycycline 100 mg b.i.d. for 10 days, Macrobid 100 mg b.i.d. for 10 days, apixaban 10 mg b.i.d. for 10 days and then dose to be reduced to 5 mg b.i.d. consulted visiting nurses. [place], [place] DISCHARGE SUMMARY NAME: ROSEANNE RAMIREZ UNIT #: [id number] ROOM: 424 DOCTOR: ZULEMA TRUJILLO MD BIRTHDATE: [birth year] ZULEMA TRUJILLO MD CM:DISCHARG [id number] ZULEMA TRUJILLO MD 02/07/17 1625 interface
--- NOTE | ~2017-02-05 | WRIGHTHP ---
[place], [place] PATIENT HISTORY AND PHYSICAL EXAM NAME: [id number] UNIT #: [id number] ROOM: 424 DOCTOR: ANJELICA GENAO MD BIRTHDATE: [birth year] DOS: 02/06/2017 HISTORY OF PRESENT ILLNESS: The patient is very well known to us from multiple admissions that he has had into the hospital. He was just admitted to the hospital and discharged on the 02/04/2017. He was discharged to home, and his family noticed that his right upper arm was swollen and his PCP ordered an ultrasound and was sent to the Emergency Room. The patient's PCP advised to be sent to the Emergency Room. He was seen in the ER and had a venous Doppler of the right upper arm. It showed a nonocclusive thrombus of the right basilic and axillary vein. The patient was then admitted on IV heparin protocol. He does not have any complaints this morning. He is resting comfortably. He is in no distress and has not had any chest pains or shortness of breath. PAST MEDICAL HISTORY: Significant for; 1. Again, recent UTI with Enterococcus faecalis. Unfortunately, he has to be on IV vancomycin for 5 more doses. 2. Adult failure to thrive. 3. High risk for aspiration. The patient is noncompliant with his diet. He should be on a pureed diet with honey thick liquids. 4. Chronic indwelling Ambrocio. 5. COPD. 6. Benign prostatic hypertrophy. 7. Iron deficiency anemia. 8. Mild recurrent depression. 9. Mild protein-calorie malnutrition. MEDICATIONS: He is currently on are Flomax 0.4 mg daily, vancomycin 1 gram IV b.i.d., finasteride 5 mg daily, Remeron 15 at bedtime, Paxil 10 daily. SOCIAL HISTORY: Nonsmoker. PHYSICAL EXAMINATION: GENERAL: The patient is awake and alert and oriented. He has significant hard of hearing, so he repeats questions, but he is oriented x3. VITAL SIGNS: Graphic trend shows a pressure 114/52, pulse of 62, respirations 20, temperature 98.3. LUNGS: Diminished breath sounds. No wheezes heard. HEART: Regular. ABDOMEN: Obese. EXTREMITIES: Without any edema. Left heel has eschar, right is swollen, slightly bluish in discoloration from the ongoing thrombosis. LABORATORY DATA: WBC count normal at 10.6, hemoglobin 9.7, hematocrit 32.0, platelets 292. BUN 9, creatinine 0.65, glucose 77. Liver enzymes were normal. Protein 6.2. BUN and creatinine were normal. Potassium is 3.9. Sodium was 141. ASSESSMENT AND PLAN: 1. The patient who presents with acute deep vein thrombosis of the right brachiocephalic axillary veins and axillary vein on the right arm. The patient [place], [place] PATIENT HISTORY AND PHYSICAL EXAM NAME: ROSEANNE RAMIREZ UNIT #: [id number] ROOM: 424 DOCTOR: ANJELICA GENAO MD BIRTHDATE: [birth year] is being placed on IV heparin protocol with switched to Xarelto or Eliquis depending on insurance copay. I did speak to case management. Ebony is going to call the pharmacy and let me know which one will be covered. If not, we will have to place the patient on Coumadin. 2. Recent urinary tract infection with Enterococcus faecalis, on IV vancomycin, which is being continued. 3. High risk for aspiration. The patient is again encouraged to follow honey-thick liquids and pureed diet, which I am not sure whether he follows at home. 4. Chronic indwelling Ambrocio catheter. Continue Flomax and Avodart. ANJELICA GENAO MD CM:HISPHYS:PATIENT HISTORY AND PHYSICAL EXAMINATION [id number] ANJELICA GENAO MD 02/06/17 1009 interface
[~2017-02-05 20:46] MED LIST changes: +BOOST PLUS 240240 ML PO; +DUONEB 3 MG/3 ML3 M1 INH; +FINASTERIDE5 M1 PO; +LEVOFLOXACIN250 M2 PO; +MEGESTROL ACETAT1 OZ PO; +PAXIL10 MG PO; +VANCO 1 GR1 GM/250 M IV; +[UNRECOGNIZED DRUG - OTHER] PO
[2017-02-05 20:52] VITALS: BP 120/55
[2017-02-05 21:21] LABS: BASO # 0.1 10*3/uL (0.0-0.1); BASO % 0.8 % (0.0-1.0); EOS # 0.8 10*3/uL (0.0-0.4); EOS % 7.4 % (1.0-4.0); HEMOGLOBIN 9.7 g/dl (14.0-18.0); LYMPH # 3.7 10*3/uL (1.3-4.4); LYMPH % 34.9 % (27.0-41.0); MEAN CELL VOLUME 82.9 fl (80.0-94.0); MEAN CORPUSCULAR HGB 25.1 pg (27.0-31.0); MEAN CORPUSCULAR HGB CONC 30.3 g/dl (33.0-37.0); MEAN PLATELET VOLUME 8.3 fl (9.6-12.3); MONO # 1.2 10*3/uL (0.1-1.0); NEUT # 4.8 10*3/uL (2.3-7.9); NEUT % 45.6 % (47.0-73.0); PLATELET COUNT AUTOMATED 292 10*3/uL (130-400); RED BLOOD COUNT 3.86 10*6/uL (4.50-5.90); RED CELL DISTRI WIDTH 18.6 % (0-14.5); WHITE BLOOD COUNT 10.6 10*3/uL (4.8-10.8)
[2017-02-05 21:31] LABS: INTERNATIONAL NORM RATIO 1.1 (2.0-3.5); PROTHROMBIN TIME 11.3 SECONDS (9.0-12.4)
[2017-02-05 21:41] LABS: ALKALINE PHOSPHATASE 62 U/L (45-117); BILIRUBIN, TOTAL 0.3 mg/dl (0.2-1.0); BUN 9 mg/dl (7-24); CARBON DIOXIDE 28 mmol/L (21-32); CHLORIDE 109 mmol/L (98-107); EST GLOM FILT AFRICAN AMERICAN > 60 ml/min; GLUCOSE 77 mg/dL (65-99); MAGNESIUM 1.9 mg/dL (1.5-2.1); POTASSIUM 3.9 mmol/L (3.5-5.1); SGOT/AST 11 IU/L (3-35); SGPT/ALT 8 U/L (12-78); SODIUM 141 mmol/L (136-145); TOTAL PROTEIN 6.2 gm/dL (6.4-8.2)
[2017-02-05 21:42] LABS: TROPONIN I < 0.015 ng/ml (<0.045)
[2017-02-06 00:20] VITALS: BP 114/52
[2017-02-06 08:00] VITALS: BP 135/71
[2017-02-06 12:00] VITALS: BP 130/55
[2017-02-06 16:00] VITALS: BP 125/55
[2017-02-06 20:00] VITALS: BP 140/57
[2017-02-07] VITALS: BP 143/52
[2017-02-07 07:58] VITALS: BP 125/60
[2017-02-07 11:48] VITALS: BP 114/59
[2017-02-07] MEDS ORDERED: ELIQUIS5 M1 PO (14:54)
[2017-02-07] MEDS ORDERED: DOXYCYCLINE100 M3 PO (14:55)
[2017-02-07] MEDS ORDERED: MACROBID100 M1 PO (15:05)
== END 2017-02-07 15:53 | disposition home health service (06) | DRG 314 ==
LOC: ED 20:46 → EDHOLD 22:45 → 4E 22:45
PROVIDERS: Student in an Organized Health Care Education/Training Program
DX: T82.868A Thrombosis due to vascular prosthetic devices, implants and grafts, initial encounter (principal); J69.0 Pneumonitis due to inhalation of food and vomit; E44.0 Moderate protein-calorie malnutrition; I82.621 Acute embolism and thrombosis of deep veins of right upper extremity; F33.0 Major depressive disorder, recurrent, mild; D50.9 Iron deficiency anemia, unspecified; F17.200 Nicotine dependence, unspecified, uncomplicated; N39.0 Urinary tract infection, site not specified; N40.1 Benign prostatic hyperplasia with lower urinary tract symptoms; R33.8 Other retention of urine; B95.2 Enterococcus as the cause of diseases classified elsewhere; R62.7 Adult failure to thrive; J43.2 Centrilobular emphysema; Z68.21 Body mass index [BMI] 21.0-21.9, adult; Z79.01 Long term (current) use of anticoagulants; Z88.0 Allergy status to penicillin; Z88.2 Allergy status to sulfonamides; Z88.8 Allergy status to other drugs, medicaments and biological substances

== ENCOUNTER 2017-03-03 13:04 | Emergency (ER) | payer OTHER ==
[~2017-03-03] VITALS: Ht 177.8 cm; Wt 68.0 kg
[2017-03-03 13:04] VITALS: BP 114/60
[~2017-03-03 13:04] MED LIST changes: +ELIQUIS5 M1 PO; +MACROBID100 M1 PO
[2017-03-03 18:34] LABS: BASO # 0.1 10*3/uL (0.0-0.1); BASO % 0.6 % (0.0-1.0); EOS # 0.4 10*3/uL (0.0-0.4); EOS % 4.4 % (1.0-4.0); HEMATOCRIT 35.6 % (42.0-52.0); HEMOGLOBIN 10.8 g/dl (14.0-18.0); LYMPH # 2.2 10*3/uL (1.3-4.4); LYMPH % 23.5 % (27.0-41.0); MEAN CELL VOLUME 85.2 fl (80.0-94.0); MEAN CORPUSCULAR HGB 25.8 pg (27.0-31.0); MEAN CORPUSCULAR HGB CONC 30.3 g/dl (33.0-37.0); MONO % 10.2 % (3.0-9.0); NEUT # 5.8 10*3/uL (2.3-7.9); PLATELET COUNT AUTOMATED 265 10*3/uL (130-400); RED BLOOD COUNT 4.18 10*6/uL (4.50-5.90); RED CELL DISTRI WIDTH 17.4 % (0-14.5); WHITE BLOOD COUNT 9.5 10*3/uL (4.8-10.8)
[2017-03-03 18:45] LABS: INTERNATIONAL NORM RATIO 1.1 (2.0-3.5); PROTHROMBIN TIME 11.4 SECONDS (9.0-12.4)
[2017-03-03 18:52] LABS: ALBUMIN 2.2 gm/dl (3.1-4.5); ALKALINE PHOSPHATASE 80 U/L (45-117); BILIRUBIN, TOTAL 0.3 mg/dl (0.2-1.0); BUN 5 mg/dl (7-24); C-REACTIVE PROTEIN 1.99 MG/DL (0-0.3); CARBON DIOXIDE 26 mmol/L (21-32); CHLORIDE 104 mmol/L (98-107); CKMB 1.7 ng/ml (0.5-3.6); CPK 33 U/L (39-308); EST GLOM FILT AFRICAN AMERICAN > 60 ml/min; GLUCOSE 92 mg/dL (65-99); MAGNESIUM 1.9 mg/dL (1.5-2.1); POTASSIUM 3.7 mmol/L (3.5-5.1); SGOT/AST 16 IU/L (3-35); SGPT/ALT 10 U/L (12-78); SODIUM 140 mmol/L (136-145); TOTAL PROTEIN 6.4 gm/dL (6.4-8.2); TROPONIN I 0.015 ng/ml (<0.045)
[2017-03-03 18:58] VITALS: BP 104/55
[2017-03-03 19:34] VITALS: BP 126/66
[2017-03-03 20:31] LABS: LA>2 REFLEX 2 HR DRAW NOW
[2017-03-03 21:02] VITALS: BP 135/69
== END 2017-03-03 23:42 | disposition short-term general hospital (02) ==
LOC: ED 13:04 → EDHOLD 21:26 → ED 23:42
PROVIDERS: Emergency Medicine
DX: T83.83XA Hemorrhage due to genitourinary prosthetic devices, implants and grafts, initial encounter (principal); K92.2 Gastrointestinal hemorrhage, unspecified; J44.9 Chronic obstructive pulmonary disease, unspecified; M13.819 Other specified arthritis, unspecified shoulder; D68.9 Coagulation defect, unspecified; Z87.891 Personal history of nicotine dependence; Z79.899 Other long term (current) drug therapy; Z88.0 Allergy status to penicillin; Z88.2 Allergy status to sulfonamides; Z88.1 Allergy status to other antibiotic agents; Z88.8 Allergy status to other drugs, medicaments and biological substances; Z86.73 Personal history of transient ischemic attack (TIA), and cerebral infarction without residual deficits

== ENCOUNTER → 2017-03-23 | Outpatient (CLI) | payer OTHER | END | disposition home or self-care (01) | LOC: WOUNDCARE 13:00 | DX: L89.613 Pressure ulcer of right heel, stage 3 (principal); I73.9 Peripheral vascular disease, unspecified; M13.819 Other specified arthritis, unspecified shoulder; J44.9 Chronic obstructive pulmonary disease, unspecified; F32.9 Major depressive disorder, single episode, unspecified; Z86.718 Personal history of other venous thrombosis and embolism; Z87.891 Personal history of nicotine dependence ==

== ENCOUNTER → 2017-03-30 | Outpatient (CLI) | payer OTHER | END | disposition home or self-care (01) | LOC: MRI 01:55 | DX: S91.301A Unspecified open wound, right foot, initial encounter (principal); M76.61 Achilles tendinitis, right leg; L89.619 Pressure ulcer of right heel, unspecified stage; X58.XXXA Exposure to other specified factors, initial encounter; Y93.89 Activity, other specified; Y92.89 Other specified places as the place of occurrence of the external cause; Y99.8 Other external cause status ==

== ENCOUNTER → 2017-04-06 | Outpatient (CLI) | payer OTHER | LOC: WOUNDCARE 03:39 | DX: L89.613 Pressure ulcer of right heel, stage 3 (principal); E64.0 Sequelae of protein-calorie malnutrition; I73.9 Peripheral vascular disease, unspecified; B95.62 Methicillin resistant Staphylococcus aureus infection as the cause of diseases classified elsewhere; Z87.891 Personal history of nicotine dependence ==

== ENCOUNTER → 2017-04-20 | Outpatient (CLI) | payer OTHER ==
--- NOTE | ~2017-04-20 | PR ---
[place], [place] PROGRESS NOTE NAME: ROSEANNE RAMIREZ [facility] #: [id number] UNIT #: [id number] ROOM: DOCTOR: SONIA SanchezHUGO BIRTHDATE: [birth year] DOS: 04/20/2017 WOUND CARE PROGRESS NOTE CHIEF COMPLAINT: Right heel ulcer. HISTORY OF PRESENT ILLNESS: This is an 86-year-old gentleman with severe chronic debility who has had a pressure ulcer of his right heel for the past 5 months. He has been coming to the Wound Clinic for 4 weeks now. He has multiple medical problems that includes severe COPD, on chronic oxygen therapy and is quite debilitated. He was brought in by his daughter without any specific complaints. He is on Santyl for wound care; however, last week Home Health only came twice a week instead of 3 times a week and the dressing was only changed twice last week. So, he is not really getting Santyl on a daily basis. In any case, he has not complained of any pain with the wound. No fevers or chills. His daughter says that they tried to get him to see Dr. Bustamante, but were unable to get him into the car as he was having severe problems with his breathing and was noted to be with low oxygen and so, they were unable to get that done. In addition, he was supposed to have surgery for his bladder, he does have a chronic indwelling Ambrocio catheter and that had to be canceled as well due to his breathing issues, so they are keeping pressure off of his heel with pillows. OBJECTIVE: VITAL SIGNS: Stable. Temperature 98.4, pulse 72, respirations 20, blood pressure is 118/64. The wound is measuring 2 x 2 x 1.4 in depth that is more in the medial aspect of the wound. There is some granulation tissue noted on the outer parts of the wound; however, there is still quite a bit of fibrin and slough noted. The periwound itself does not appear inflamed. Not tender. It is not red. There is no odor. Debridement was done today. The tissue removed was fibrin, slough and subcutaneous tissue. This was accomplished with forceps, scissors and a curette. There was minimal bleeding that was controlled with pressure. The patient tolerated the debridement well. Cetacaine spray was used for topical anesthesia. Post-debridement depth is the same at 1.4 length and width the same at 2 and 2. ASSESSMENT AND PLAN: Stage 3 pressure ulcer. There has not really been a whole lot of improvement yet, we still have necrotic tissue presently. I would like to have them use the Santyl daily if possible, so we did explain this to the daughter that the days Home Health does not come in that they should try to use the Santyl on a daily basis as well as the Bactroban and to gently pack the deepest part of the wound. I am hoping that we will be able to get a wound VAC on him within a week or two. Vascular has been on hold due to the patient's multiple medical problems and he should follow up in the Wound Clinic in one week. [place], [place] PROGRESS NOTE NAME: ROSEANNE RAMIREZ UNIT #: [id number] ROOM: DOCTOR: HUGO SCOTT M.D. BIRTHDATE: [birth year] HUGO SCOTT MD CM:YU [id number] HUGO SCOTT M.D. 04/21/17 0838 interface
== END ==
LOC: WOUNDCARE 02:49
DX: L89.613 Pressure ulcer of right heel, stage 3 (principal); I73.9 Peripheral vascular disease, unspecified; J44.9 Chronic obstructive pulmonary disease, unspecified

== ENCOUNTER → 2017-05-04 | Outpatient (CLI) | payer OTHER ==
--- NOTE | ~2017-05-04 | PR ---
[place], [place] PROGRESS NOTE NAME: ROSEANNE RAMIREZ [facility] #: [id number] UNIT #: [id number] ROOM: DOCTOR: SONIA SanchezHUGO BIRTHDATE: [birth year] DOS: 05/04/2017 WOUND CARE PROGRESS NOTE CHIEF COMPLAINT: Right heel ulcer. HISTORY OF PRESENT ILLNESS: This is an 86-year-old male who has had a stage 3 pressure ulcer of the right heel for several months now. He has been coming to the Wound Clinic for 5 weeks now. He did miss his last week's appointment. He has multiple medical problems that leave him quite debilitated and they include severe COPD, decreased mobility, chronic oxygen therapy, peripheral vascular disease, chronic indwelling Ambrocio. He was unable to see Vascular due to his severe shortness of breath. He comes in today without any new specific complaints. His daughter is with him. She says that he has not been complaining of any pain with the wound. No fevers or chills are noted. She does note that he is getting weaker in general. He has really decreased his ambulation. Today, he was unable to get out of his wheelchair to sit on the examining table. He has not been eating very well. She says he really just eats a lot of pancakes, but has been drinking Boost and Arginaid. No other specific complaints are noted. OBJECTIVE: VITAL SIGNS: Blood pressure 98/48, pulse of 76, respirations 18, temperature is 98.1. SKIN: The wound is measuring 2 x 1 x 1.1 in depth. There is much less necrotic tissue. It looks pretty clean. There is just minimal fibrin slough present. There is some granulation tissue, but there is still a depth to the wound, that is 1.1. A selective debridement was done today. The tissue removed was just fibrin and slough only. There was minimal bleeding. This was accomplished with the curette. Post-debridement measurements are unchanged. The patient tolerated the debridement well. ASSESSMENT AND PLAN: Stage 3 pressure ulcer. The wound is looking much improved as far as the necrotic tissue goes. It looks ready for wound VAC. There is still quite a bit of depth to it. The bone is not exposed. So, we will go ahead and order a wound VAC to be started. I would like him to continue with the Virginie, one of the wound VAC is being utilized as possible and have him follow up in the Wound Clinic in one week. In the meantime, today we will use this dressing that he has been using, which was TheraHoney and Aquacel Ag rope. Followup is in one week. He does have multiple medical problems and is remaining quite debilitated. [place], [place] PROGRESS NOTE NAME: ROSEANNE RAMIREZ UNIT #: [id number] ROOM: DOCTOR: HUGO SCOTT M.D. BIRTHDATE: [birth year] HUGO SCOTT MD CM:YU [id number] HUGO SCOTT M.D. 05/05/17 0821 interface
== END | disposition home or self-care (01) ==
LOC: WOUNDCARE 01:19
DX: L89.613 Pressure ulcer of right heel, stage 3 (principal); I73.9 Peripheral vascular disease, unspecified; J44.9 Chronic obstructive pulmonary disease, unspecified

== ENCOUNTER 2017-05-12 13:26 | Inpatient (IN) | payer OTHER ==
[~2017-05-12] VITALS: Ht 173 cm; Wt 68.3 kg
--- NOTE | ~2017-05-12 | DS ---
[place], [place] DISCHARGE SUMMARY NAME: ROSEANNE RAMIREZ UNIT #: [id number] ROOM: 426 DOCTOR: ZULEMA TRUJILLO MD BIRTHDATE: [birth year] DOS: 05/15/2017 DISCHARGE DIAGNOSES: 1. Urinary tract infection with Escherichia coli, treated with IV ceftriaxone. 2. Poorly healing wound at the right heel followed by Dr. Ding, the foot doctor. 3. History of aspiration pneumonia. The patient needs to work with speech therapy. 4. Centrilobular emphysema with chronic shortness of breath, chronic obstructive pulmonary disease. 5. Moderate protein-calorie malnutrition. 6. Major depression, recurrent, mild. 7. Nicotine smoke dependence. 8. Benign prostatic hypertrophy. 9. Chronic urinary retention with indwelling Ambrocio catheter. 10. History of deep venous thrombosis of the right upper extremity in January 2017. HOSPITAL COURSE: 1. The patient was admitted by Dr. Quesada for urinary tract infection. The patient grew E. coli from urine cultures and the patient is being treated with ceftriaxone, which will be continued at nursing facility. 2. Poorly healing wound of the right heel, seen by Dr. Ding who is recommending follow up at [facility]. His group will see the patient over there. 3. Aspiration pneumonia. The patient needs to be followed and monitored by speech therapy for aspiration and recurrent pneumonias and diet needs to be modified. 4. COPD and centrilobular emphysema with chronic shortness of breath. 5. Moderate protein calorie malnutrition. The patient worked with dietary. LABORATORY DATA: As mentioned above. DISCHARGE MANAGEMENT: Mirtazapine 15 mg at bedtime, Flomax 0.4 mg a day, finasteride 5 mg a day, DuoNeb q.i.d. as needed for shortness of breath, ceftriaxone 1 gram IV daily for 5 more days, then to be stopped. Consult Dr. Ding, the foot doctor for following of heel ulcer and wound care. [place], [place] DISCHARGE SUMMARY NAME: ROSEANNE RAMIREZ UNIT #: [id number] ROOM: 426 DOCTOR: ZULEMA TRUJILLO MD BIRTHDATE: [birth year] ZULEMA TRUJILLO MD CM:JAIRO [id number] ZULEMA TRUJILLO MD 05/15/17 1530 interface
--- NOTE | ~2017-05-12 | PR ---
[place], [place] PROGRESS NOTE NAME: ROSEANNE RAMIREZ UNIT #: [id number] ROOM: 426 DOCTOR: ZULEMA TRUJILLO MD BIRTHDATE: [birth year] DOS: 05/14/2017 SUBJECTIVE: The patient is looking quite weak but he has no complaints. OBJECTIVE: VITAL SIGNS: Blood pressure 120/60, heart rate of 65 beats per minute, breathing 18 times per minute, temperature 98 degrees Fahrenheit. GENERAL: Generalized weakness. HEENT AND NECK: Exam within normal limits. CARDIOVASCULAR SYSTEM: Heart rate is regular in rate and rhythm. S1 and S2 normally audible. LUNGS: Clear to auscultation. ABDOMEN: Soft, nontender. No obvious organomegaly. Bowel sounds are present. EXTREMITIES: Without significant cyanosis or edema. IMPRESSION: 1. The patient with urinary tract infection, being treated with antibiotics. The patient has E. coli growing out of the urine cultures, being treated with IV ceftriaxone. 2. Poorly healing wound at the right heel that is being followed by wound care. 3. History of aspiration pneumonia. The patient working with speech therapy. 4. History of centrilobular emphysema with chronic shortness of breath. 5. Moderate protein calorie malnutrition. The patient working with dietary. ZULEMA TRUJILLO MD CM:PNTRANS [id number] 3 ZULEMA TRUJILLO MD 05/15/17 0154 interface
--- NOTE | ~2017-05-12 | CON ---
[place], [place] REPORT OF CONSULTATION NAME: ROSEANNE RAMIREZ UNIT #: [id number] ROOM: 426 DOCTOR: ERIC VILLANUEVA DPM BIRTHDATE: [birth year] DOS: SUBJECTIVE: The patient presents as an 86-year-old male with a chief complaint of an ulceration to the right heel. PAST MEDICAL HISTORY: The patient has a past medical history significant for hospitalization for DVT of the right arm on February 04, history of UTIs, history of chronic urinary retention, with indwelling Ambrocio catheter, history of aspiration pneumonia, swallowing dysfunction, history of benign prostatic hypertrophy, history of COPD, with nicotine dependence, protein-calorie malnutrition, moderate to mild depression, major, recurrent. SOCIAL HISTORY: History of heavy smoking. Denies alcohol or illicit drug use. PHYSICAL EXAMINATION: EXTREMITIES: Pedal pulses diminished in both lower extremities. There is an ulceration to the plantar posterior right heel that is 2.1 cm in length x 2.0 cm in width x approximately 1 cm in depth. No signs of purulent drainage or foul odor. No exposure of bone. ASSESSMENT: Ulceration, right heel; peripheral vascular disease. PLAN: Evaluation and management. Ordered arterial Doppler of bilateral lower extremities. Also, consult Dr. Diaz for vascular consultation. Also ordered a wound VAC at this time and can continue with the heel protector. Discussed the case with Dr. Ding who will see the patient tomorrow for followup. ERIC VILLANUEVA DPM CM:CONSTR:REPORT OF CONSULTATION 1438 05/19/17 0732 interface
--- NOTE | ~2017-05-12 | CON ---
[place], [place] REPORT OF CONSULTATION NAME: ROSEANNE RAMIREZ UNIT #: [id number] ROOM: 426 DOCTOR: HUGO SCOTT M.D. BIRTHDATE: [birth year] DOS: 05/13/2017 HISTORY OF PRESENT ILLNESS: This is an 86-year-old male with a history of multiple medical problems who was admitted from home to the Emergency Department with complaints of a very dark and discolored urine and slightly confused. He is known to the Wound Clinic for a pressure ulcer of his right heel. He has had a pressure ulcer for several months now that initially started I believe after the hip surgery. It was of the right heel and he has been coming to the Wound Clinic for several weeks now. The wound was noted to be much dry cleaner helper. The last time he came to the Wound Clinic, but however, had quite a bit of depth to it. Imaging studies were negative for osteomyelitis and a wound VAC was ordered; however, it does not appear that this actually did start for some reason, it was never obtained. I am not sure what happened; however, the wound VAC never did actually it to the patient's house and this was ordered approximately 9 days ago. In any case, there was also concern of continued heel ulcer and wound care has been consulted for this. PAST MEDICAL HISTORY: Significant for a DVT of the right arm after having a PICC line, history of urinary tract infections. He has a chronic indwelling Ambrocio catheter, history of aspiration pneumonia, swallowing dysfunction, BPH, COPD with nicotine dependence, protein-calorie malnutrition moderate, mild depression, major, and recurrent. MEDICATIONS: Also of note, his medications from home are Remeron 15 at bedtime, tamsulosin 0.5 daily, finasteride 5 daily, albuterol 4 times a day. SOCIAL HISTORY: He has a history of heavy smoking, although I had thought that the patient had stopped smoking according to the family the last time he was in the Wound Clinic, he does still smoke on occasion. He is on oxygen for severe COPD as well. He denies alcohol use. He is essentially been using a wheelchair to get around and is really not ambulating at this time. ALLERGIES: CHLOROMYCETIN, PENICILLINS AND SULFA. REVIEW OF SYSTEMS: Currently, he does complain of some pain in his right leg, but I asked specifically it was of the heel and he does not really seem to be complaining of the heel. It is mostly in the hip area that he complains of pain. According to the family, he has not really complained of pain with the wound; however, he has been getting generally weaker and has been not able to ambulate at all. The last time he was in the Wound Clinic, he was still weak and dyspneic that he could not really get from his wheelchair onto the examining table, so he was quite debilitated. He does have severe chronic shortness of breath and gets easily out of breath. Also, he does have peripheral vascular disease and we had wanted him to follow up with vascular, Dr. Bustamante, however, when the patient had gone to see him apparently, he was so short of breath he could lie flat for an angiogram and therefore no procedure was done. So that was part of the workup for his heel ulcer as well as he does have known vascular disease and has not been able to be evaluated more thoroughly. PHYSICAL EXAMINATION: [place], [place] REPORT OF CONSULTATION NAME: ROSEANNE RAMIREZ UNIT #: [id number] ROOM: 426 DOCTOR: HUGO SCOTT M.D. BIRTHDATE: [birth year] VITAL SIGNS: Today shows temperature of 98.2, pulse of 68, respirations 18 and his blood pressure 146/76. GENERAL: This is an elderly male who is pleasant and cooperative to examination. He is notably pale. He is very hard of hearing. He knows that he has an ulcer and he does not seem to be complaining of any pain when I touched the area or manipulated in any way. NECK: Supple. There is no JVD. LUNGS: Occasional rhonchi bilaterally. CARDIOVASCULAR: S1, S2 regular rate and rhythm. ABDOMEN: Soft and nontender. He has a Ambrocio catheter in place. EXTREMITIES: He has really no edema and no calf tenderness. He has got positive peripheral pulses. He has a heel ulcer on the right heel that is essentially measuring the following 2 cm in length x 2 cm in width x 1 cm in depth. There is some fibrin slough still present in the base of the wound, but there is granulation tissue noted. There is no erythema, purulence or any sign of infection that I could see. The bone is not exposed. Due to the fact, that the patient missed his last appointment in the Wound Clinic and that he does have some devitalized tissue noted, a debridement was recommended. I spoke to the patient and the patient's daughter regarding debridement. Consent was obtained. He has had debridement in the clinic and was familiar with the procedure. So, the area was prepped with Cetacaine spray, devitalized tissue was removed with forceps and scissors. There was ninerft-vg-puyumgor bleeding controlled with pressure. Post-debridement measurements are unchanged, except for the depth of 1.2 to 1.3. The patient tolerated the procedure well. LABORATORY DATA: White count of 7.8, hemoglobin of 10.4, platelets of 316. BUN is 16 and creatinine is 0.86. Lactic acid was 2.2. CRP was 2.83. Albumin is low at 2.1. His urine shows 2+ protein, 2+ blood, positive nitrite, 3+ leukocyte esterase, too numerous to count white cells and 4+ bacteria. 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 At this point, I would go ahead and see if we can start the wound VAC while he is here. I would also like to get podiatry's opinion regarding whether any further surgical debridement is necessary. We will order repeat x-ray to be done as well he did have previous scans that were negative. He does have vascular disease and was unable to follow up with Vascular. The patient overall has had some decline in his physical status and has been having much more difficulty ambulating, especially with the heel ulcer, it has been chronic and slow to heal. So we would definitely welcome any further opinions regarding his heel ulceration. In the meantime, offloading is imperative and we will follow along with you. Most likely, the patient would benefit from going to a halfway facility for further care as he is quite debilitated and very weak as well. Ideally a Vascular consultation would be advisable if available at our facility. Once again, we did recommend for the patient to follow up with Vascular; however, due to his multiple comorbid conditions he was unable to make the outpatient appointments. Ideally, if we can obtain a Vascular consultation while he is in-house, this would be good for the patient, Dr. Bustamante unfortunately does not come to this hospital. However, if we do have access to another physician who speicializes in Vascular that would be ideal. [place], [place] REPORT OF CONSULTATION NAME: ROSEANNE RAMIREZ UNIT #: [id number] ROOM: 426 DOCTOR: HUGO SCOTT M.D. BIRTHDATE: [birth year] DICTATION ENDS HERE. HUGO SCOTT MD CM:CONSTR:REPORT OF CONSULTATION 1610 05/19/17 1014 interface
--- NOTE | ~2017-05-12 | WRIGHTHP ---
[place], [place] PATIENT HISTORY AND PHYSICAL EXAM NAME: ROSEANNE RAMIREZ [facility] #: [id number] UNIT #: [id number] ROOM: 426 DOCTOR: ANJELICA GENAO MD BIRTHDATE: [birth year] DOS: 05/12/2017 HISTORY OF PRESENT ILLNESS: This patient is 86 years old, known to me from previous admission. The patient was brought in by family members stating that his urine was dark and discolored, and he is slightly confused. This morning the patient is no longer confused. He knows that he is in the hospital, knows that he has a problem with his right ankle, repeatedly asked me whether anybody was going to cut his leg. He denies having any chest pains, palpitations, does not have any fever or chills, does not have any abdominal pain, nausea, any emesis. PAST MEDICAL HISTORY: 1. Significant for last hospitalization in 01/2017 with DVT of the right arm. 2. History of UTIs. 3. History of chronic urinary retention with an indwelling Ambrocio catheter. 4. History of aspiration pneumonia and swallowing dysfunction. 5. Benign prostatic hypertrophy. 6. COPD with nicotine dependence. 7. Protein-calorie malnutrition, moderate. 8. Mild depression, major, recurrent. MEDICATIONS: Remeron 15 at bedtime, tamsulosin 0.5 daily, finasteride 5 daily, albuterol 4 times a day. SOCIAL HISTORY: History of heavy smoking. Denies using any alcohol. PHYSICAL EXAMINATION: GENERAL: He is awake and alert and oriented. VITAL SIGNS: Blood pressure is 140/70, pulse of 80, respirations 20, temperature 98.1. LUNGS: Diminished breath sounds. No wheezes, rales or rhonchi heard. HEART: Regular. ABDOMEN: Obese, soft, nontender. EXTREMITIES: Without any edema. Right heel, there is a very deep wound at least 2 cm deep wound with base of the wound has yellow discharge. There is no evidence of surrounding cellulitis. ASSESSMENT AND PLAN: 1. The patient with possible urinary tract infection, lactic acid elevation of 2.2. WBC count is 7.8, hemoglobin 10.6, hematocrit 34.7. The patient has been admitted. IV fluids and IV antibiotics have been added. 2. Poorly healing wound of the right heel. We will ask Dr. Pace for an opinion. 3. History of aspiration pneumonia. We will ask Speech for an opinion. Again, we will do a speech study. [place], [place] PATIENT HISTORY AND PHYSICAL EXAM NAME: ROSEANNE RAMIREZ UNIT #: [id number] ROOM: 426 DOCTOR: ANJELICA GENAO MD BIRTHDATE: [birth year] ANJELICA GENAO MD CM:HISPHYS:PATIENT HISTORY AND PHYSICAL EXAMINATION [id number] ANJELICA GENAO MD 05/13/17 0734 interface
--- NOTE | ~2017-05-12 | PR ---
[place], [place] PROGRESS NOTE NAME: [facility]ANNE [facility]IREZ [id number] UNIT #: [id number] ROOM: 426 DOCTOR: JOVI LOPEZ DPM BIRTHDATE: [birth year] DOS: 05/15/2017 SUBJECTIVE: The patient is seen today for followup of a right heel ulcer. He states he is having no problems, no pain. OBJECTIVE: Pedal pulses are diminished in both lower extremities. Skin temp is warm at the toes. The ulceration, right posterior heel measures about 2 cm in diameter with about close to 1 cm in depth. There is no purulent drainage or malodor, no exposure to bone. No surrounding erythema or edema. His CTA showed normal arterial flow with no occlusive disease. ASSESSMENT: Chronic ulcer, right heel. PLAN: Evaluation and management. Continue with wound care and offloading. Discussed the case with Dr. Brasher. He could be discharged back to the [facility] facility. We will follow there for wound care. Right now, his heel is not infected and his CTA was within normal limits. We will follow at the [facility] next week some time. Thank you for the opportunity to take part in the care of this patient. JOVI LOPEZ DPM CM:YU [id number] JOVI LOPEZ DPM 05/16/17 0639 interface
[2017-05-12 13:44] VITALS: BP 112/49
[2017-05-12 14:26] LABS: BASO # 0.1 10*3/uL (0.0-0.1); BASO % 0.8 % (0.0-1.0); EOS # 0.6 10*3/uL (0.0-0.4); EOS % 7.1 % (1.0-4.0); HEMATOCRIT 34.7 % (42.0-52.0); HEMOGLOBIN 10.6 g/dl (14.0-18.0); LYMPH # 1.7 10*3/uL (1.3-4.4); LYMPH % 22.3 % (27.0-41.0); MEAN CELL VOLUME 80.7 fl (80.0-94.0); MEAN CORPUSCULAR HGB 24.7 pg (27.0-31.0); MEAN CORPUSCULAR HGB CONC 30.5 g/dl (33.0-37.0); MEAN PLATELET VOLUME 8.8 fl (9.6-12.3); MONO # 0.7 10*3/uL (0.1-1.0); MONO % 9.3 % (3.0-9.0); NEUT # 4.7 10*3/uL (2.3-7.9); NEUT % 60.1 % (47.0-73.0); PLATELET COUNT AUTOMATED 316 10*3/uL (130-400); RED CELL DISTRI WIDTH 18.4 % (0-14.5); WHITE BLOOD COUNT 7.8 10*3/uL (4.8-10.8)
[2017-05-12 14:35] LABS: ACT PARTIAL THROMBO TIME 27.7 SECONDS (20.8-31.5)
[2017-05-12 14:39] LABS: BILIRUBIN NEGATIVE (NEGATIVE); BLOOD 2+ (NEGATIVE); CLARITY CLOUDY (CLEAR); COLOR YELLOW (YELLOW); GLUCOSE NEGATIVE (NEGATIVE); KETONE NEGATIVE (NEGATIVE); LEUKO ESTERASE 3+ (NEGATIVE); NITRITE POSITIVE (NEGATIVE); UROBILINOGEN 0.2 E.U./dl (0.2-1.0)
[2017-05-12 14:42] LABS: ALBUMIN 2.1 gm/dl (3.1-4.5); ALKALINE PHOSPHATASE 81 U/L (45-117); BUN 16 mg/dl (7-24); CHLORIDE 104 mmol/L (98-107); CREATININE 0.86 mg/dL (0.70-1.30); MAGNESIUM 2.2 mg/dL (1.5-2.1); POTASSIUM 3.8 mmol/L (3.5-5.1); SGOT/AST 16 IU/L (3-35); SGPT/ALT 9 U/L (12-78); SODIUM 139 mmol/L (136-145); TOTAL PROTEIN 6.6 gm/dL (6.4-8.2)
[2017-05-12 14:44] VITALS: BP 105/70
[2017-05-12 14:47] LABS: TROPONIN I < 0.015 ng/ml (<0.045)
[2017-05-12 15:00] LABS: BACTERIA 4+; CALCIUM OXALATE CRYSTALS 1+; WBC TNTC wbc/hpf (0-5)
[2017-05-12 15:01] LABS: RBC 21-30 rbc/hpf (0-2)
[2017-05-12 17:33] VITALS: BP 110/70
[2017-05-12] MEDS ORDERED: ELIQUIS5 M1 PO (17:46)
[2017-05-12 18:30] VITALS: BP 112/49; BP 126/64
[2017-05-12] MEDS ORDERED: Ventolin 02.5 MG/3 M INH (18:55)
--- NOTE | 2017-05-12 18:56 | NUR ---
Time: 1844 A 86 year old MALE, MED SURG admitted to under services of ANJELICA EFRNANDEZ MD. Pt. arrived via bed from ER. Chief complaint: ULCER TO RIGHT HEEL. DALI MCKOY
--- NOTE | 2017-05-12 19:01 | NUR ---
WOUND PICTURE AND WOUND CONSENT SIGNED
--- NOTE | 2017-05-12 19:30 | NUR ---
DR GENAO CALLED FOR ORDERS. NEW ORDERS RECEIVED.
--- NOTE | 2017-05-12 23:15 | NUR ---
DR GENAO NOTIFIED OF PATIENT BEING ADMITTED TO THE 4TH FLOOR AND THAT NO ADMISSION HAD BEEN COMPLETED. DR GENAO STATED THAT SHE WOULD BE IN TOMORROW TO COMPLETE THE ADMISSION.
[2017-05-13] VITALS: BP 141/71
--- NOTE | 2017-05-13 07:30 | NUR ---
DR GENAO IN TO SEE PATIENT. NEW ORDERS RECEIVED.
[2017-05-13 08:00] VITALS: BP 164/71
--- NOTE | 2017-05-13 09:09 | NUR ---
DR SCOTT IN TO SEE PATIENT.
--- NOTE | 2017-05-13 09:11 | NUR ---
Spoke with patient's son Alvaro Maynard who has requested a referral be made to [facility] in [place] for a skilled stay. Contacted [facility] and faxed referral. Will fax PT and OT evals for precert when available.
--- NOTE | 2017-05-13 09:48 | NUR ---
SPEECH PATHOLOGY Bedside swallow eval. completed as per orders. Patient is known to this dept. from past admissions. On this date he was alert and cooperative but severely [place]. Patient is ordered a regular diet and thin liquids. He reported that he has only been eating pancakes. Patient edentulous. Patient consumed thin liquid by straw and displayed no overt difficulty. He displayed no difficulty with puree. Solid was attempted however patient refused. Patient had been recommended puree and thick liquids in the past. His nurse reported that he had undergone a swallow study recently in another facility and passed, with deep. for solids and thin liquids. Will recommend he remain on regular diet and thin liquid at this time. Patient has been afebrile and WBC is within normal range. Patient is aware that chewing is difficult and he orders soft items that he knows he can chew. Follow up therapy is recommended focusing on education and use of strategies to ensure safe tolerance of diet. Results and deep. were shared with patient and his nurse and they verbalized understanding. Refer to report in [facility] for further information. Thank you for this referral. KOSTAS AVILES MSCCC-ENTERPRISE INTEGRATION DEVELOPER
--- NOTE | 2017-05-13 10:41 | NUR ---
PAULROSEANNE BENITEZ [id number] Please refer to the physician's history and physical for past medical history, comorbid conditions, and allergies. Diagnosis: ULCER OF RIGHT HEEL UNABLE TO AMBULATE Rodney Score: 23,LOW OR NO RISK WOUND DESCRIPTIONS: Location of the wound: Right heel Type of wound: stage 3 Thickness: Full Size: 2cm x 2cm x 0.8cm Tunneling: none Undermining: none Sinus Tract: none Presence of Exudate: Sanguineous Amount: Light Color: Yellow, pink Odor: None Periwound Skin Appearance: Normal Wound edges: approximated Pain (associated with wound): Tender to touch at time of assessment How does patient state this happened? patient states he is unsure how it happened Surface the patient is resting on: Isoflex SKIN PREVENTION RECOMMENDATION: 1. Pressure redistribution support surface as appropriate 2. Elevate heels 3. Remove boots/TEDS every shift and reapply 4. Head of bed 30 degrees as tolerated 5. Assess nutrition and hydration 6. Manage moisture 7. Avoid the use of containment devices while in bed 8. Use absorptive products on surfaces limit layers of linens on bed 9. Turn and reposition every 1-2 hours in bed and every 1 hour in chair as tolerated 10. Weight shifts every 15 minutes while up in chair 11. Offloading with pillows or device to keep heels elevated off bed 12. Monitor skin at least every shift 13. Inspect under medical devices twice a day WOUND TREATMENT RECOMMENDATIONS: Consult Dr. Pace for possible debridement
--- NOTE | 2017-05-13 10:42 | NUR ---
PT IN W/PATIENT
--- NOTE | 2017-05-13 10:55 | NUR ---
PHYSICAL THERAPY PAtient evaluated on 4, full evaluation to follow. Continue with PT as per plan of care with fall, 02, max (A) x 2, right heel wound and bed alarm precautions. Will require SNF for impaired functional mobility in order to return to home alone at [facility]. PAtient is high complexity via chart review, tests and evaluation: [id number]. thank you for this referral. Saloin Lugo,PT
--- NOTE | 2017-05-13 11:06 | NUR ---
Occupational Therapy evaluation completed this date on 4 with full eval to follow. Precautions include fall risk, IV UE, indwelling peace, O2, bed alarm, right heel wound, max +2 assist for mobility, high complexity level 03074. Recommend OT per POC and SNf upon d/c to enable return home with family assist. Thank you for this referral. Amna Sosa OTR/l
--- NOTE | 2017-05-13 11:10 | NUR ---
Imelda stated there are no beds available at [facility] in [place] and [facility] out of network with patients insurance. Called patients daughter Maryam and explained. She then asked if I would make a referral to [facility]. Contacted [facility] and faxed referral.
--- NOTE | 2017-05-13 11:25 | NUR ---
Hospital exemption completed online in [facility] system.
[2017-05-13 12:00] VITALS: BP 146/76
--- NOTE | 2017-05-13 13:53 | NUR ---
DR LOPEZ CALLED FOR CONSULT, SPOKE WITH JESSICA.
--- NOTE | 2017-05-13 15:00 | NUR ---
WOUND CARE COMPLETED ON RIGHT HEEL STAGE 3 PRESSURE ULCER PER ORDERS. PHOTOS TAKEN BEFORE AND AFTER DEBRIDING. WOUND MEASURES 2.0 CM W X 2.0 CM L X 1.0 CM D. WOUND BED RED, MOIST, NO ODOR, MINIMAL SEROSANG DRAINAGE. PATIENT TOLERATED WELL.
[2017-05-13 16:00] VITALS: BP 130/65
--- NOTE | 2017-05-13 19:24 | NUR ---
CHART CHECK COMPLETED.
--- NOTE | 2017-05-13 19:47 | NUR ---
RESTING IN BED, [place] BUT ALERT AND ORIENTED. HEELS OFF OF BED.
[2017-05-14] VITALS: BP 130/61
--- NOTE | 2017-05-14 05:45 | NUR ---
PT SLEEPING WITH EVEN,UNLABORED RESPIRATIONS.
[2017-05-14 08:05] VITALS: BP 138/65
--- NOTE | 2017-05-14 09:32 | NUR ---
SPEECH PATHOLOGY Patient was seen for treatment this am. He was sitting upright in bed feeding himself. Patient was consuming pancakes and milk. Patient implemented safe swallow strategies such as small bites and sips, eating slowly, chewing thoroughly and clearing oral cavity prior to next bite. He displayed no oral residue and no cough or wet vocal quality. Lungs are clear and current WBC is within normal range. Continue plan short term to ensure safe tolerance of regular diet and thin liquids. KOSTAS AVILES MSCCC-ELECTRICAL TROUBLESHOOTER
--- NOTE | 2017-05-14 12:25 | NUR ---
PHYSICAL THERAPY Nick was seen this PM 1:1 for his therapy session. Transfer supine/sit very slow with MOD A X 1, making Pt work for his sitting balance. Once up sitting balance with MIN A X 1, working in rocking, side to side, and working to Pt's tolerance with just sitting rest then back act rocking then could sit independent. Pt C/O his Cath giving him pain and wanted to quit at this time, and did not want to stand, but could sit independent when we were finished, treatment time 25 min. BELKIS GUERRERO SUPERVISOR SPECIAL SERVICES.
--- NOTE | 2017-05-14 12:31 | NUR ---
AWAITING PODIATRY BEFORE CHANGING DRSG AND APPLYING WOUND VAC
--- NOTE | 2017-05-14 13:29 | NUR ---
Referral made to [facility] per family's request. [facility] has accepted this patient and they have started precert for possible discharge thursday. Waiting on auth
--- NOTE | 2017-05-14 14:38 | NUR ---
Patient received authorization to go to [facility] tomorrow 05/15/17. Can go if medically stable for discharge.
[2017-05-14 16:00] VITALS: BP 115/58; BP 120/60
--- NOTE | 2017-05-14 18:38 | NUR ---
DAYANARA ATTEMPS MADE TO NOTIFY VERA POE AND SPARKLE RAMIREZ REGARDING DELAY IN WOUND VAC APPLICATION. NO ANSWERS
--- NOTE | 2017-05-14 19:50 | NUR ---
PT RESTING IN BED, WATCHING TV. HE SMILES AT ME AND TALKS. NO COMPLAINTS.
--- NOTE | 2017-05-14 21:38 | NUR ---
CONTINUES TO WATCH TV. TAKES MEDICATION PO WITH APPLESAUCE WITHOUT ANY DIFFICULTY.
--- NOTE | 2017-05-14 22:42 | NUR ---
STILL NO REPORT OF CTA OF ABDOMEN. ALSO, PREVIOUS RN HAD ATTEMPTED TO REACH DR ORTIZ BUT HE DID NOT CALL BACK. WILL NOTIFY HIM OF ROUTINE CONSULT WHEN CTA RESULTS OR IN EARLY AM.
--- NOTE | 2017-05-14 23:04 | NUR ---
24 HR chart check completed.
[2017-05-15] VITALS: BP 127/57
--- NOTE | 2017-05-15 02:51 | NUR ---
PATIENT RESTING IN BED WITH EYES CLOSED. NO S/S OF DISTRESS. RESPS EASY AND REGULAR. BED IN LOWEST POSITION, CALL LIGHT IN REACH, BED ALARM ON
[2017-05-15 08:00] VITALS: BP 128/60
--- NOTE | 2017-05-15 08:27 | NUR ---
speech daily note patient tolerating sips of thin liquid via cup upright at 90 degrees with no overt s/s aspiration. Reviewed swallow compensatory strategies. Patient alert and oriented to time, place and reason for current hospitalization. Speech difficult to understand some dysarthric quality tbut resonance hypernasal and appears a factor in speech intelligibility. Monitor closely for thin liquid tolerqance as history of penetration into laryngeal vestibule wiht oral dysphagia. Lyndsay Garcia MA CCC-POLICE CLERK
--- NOTE | 2017-05-15 12:51 | NUR ---
DR LOPEZ HERE AND REDRESSED HEEL, STATING NOT TO PUT WOUND VAC ON PT IS GOING TO [facility] TODAY
--- NOTE | 2017-05-15 12:57 | NUR ---
Patient is being discharged to [facility], transportation scheduled at 4 pm, nh, nursing and family notified.
--- NOTE | 2017-05-15 13:11 | NUR ---
PHYSICAL THERAPY Nick improving with his transfers this PM. With much verbal cueing transfer supine/sit MIN A X 1, up into sitting. Working on sitting balance X 18 min and working in act Ex to bilateral LE of Dmitry amin, and Nick said what do you want me to do next! Pt back supine with call light bed alarm on treatment time 19 min. BELKIS GUERRERO RUBBER DOWN.
--- NOTE | 2017-05-15 14:00 | NUR ---
PHYSICAL THERAPY CO-SIGN I approve of the Phyical Therapy notes written above. NEL PONCE PT
--- NOTE | 2017-05-15 14:33 | NUR ---
REPORT TO [facility]
--- NOTE | 2017-05-15 15:49 | NUR ---
TO [facility] VIA [facility]
--- NOTE | 2017-05-19 07:51 | NUR ---
OCCUPATIONAL THERAPY CO-SIGN I approve of the Occupational Therapy notes written above. MAC MATTHEWS
== END 2017-05-15 15:49 | disposition other institution (70) | DRG 673 ==
LOC: ED 13:26 → EDHOLD 17:08 → 4E 17:08
PROVIDERS: Student in an Organized Health Care Education/Training Program; ADMIT Internal Medicine
PROC: 0HBMXZZ Excision of Right Foot Skin, External Approach (ICD-10-PCS; principal; 2017-05-13)
DX: N39.0 Urinary tract infection, site not specified (principal); L89.613 Pressure ulcer of right heel, stage 3; E44.0 Moderate protein-calorie malnutrition; F33.0 Major depressive disorder, recurrent, mild; B96.20 Unspecified Escherichia coli [E. coli] as the cause of diseases classified elsewhere; N40.1 Benign prostatic hyperplasia with lower urinary tract symptoms; I73.9 Peripheral vascular disease, unspecified; J43.2 Centrilobular emphysema; F17.210 Nicotine dependence, cigarettes, uncomplicated; R33.8 Other retention of urine; Z68.22 Body mass index [BMI] 22.0-22.9, adult; Z87.01 Personal history of pneumonia (recurrent); Z86.718 Personal history of other venous thrombosis and embolism

== ENCOUNTER 2017-06-05 09:10 | Inpatient (IN) | payer OTHER ==
[~2017-06-05] VITALS: Ht 157.4 cm; Wt 83.0 kg
--- NOTE | ~2017-06-05 | PR ---
[place], [place] PROGRESS NOTE NAME: ROSEANNE RAMIREZ UNIT #: [id number] ROOM: 420 DOCTOR: ANJELICA GENAO MD BIRTHDATE: [birth year] DOS: 06/15/2017 SUBJECTIVE: The patient was extubated over the weekend, is resting comfortably in the ICU and is not having any complaint. His eyes are open and he does try to communicate, but he has an OG-tube in the mouth and it is difficult. Because of the OG-tube, unable to close his mouth and his tongue is quite dry. He denies having any other complaint. PHYSICAL EXAMINATION: GENERAL: He is awake and alert. VITAL SIGNS: Shows a blood pressure 142/70, pulse of 86, respirations 14-16. LUNGS: Diminished breath sounds, scattered rhonchi. HEART: Regular. ABDOMEN: Obese, soft. EXTREMITIES: Without any edema. ASSESSMENT AND PLAN: 1. Acute respiratory failure, off the ventilator. 2. Bilateral pneumonia, aspiration. We will discontinue the OG-tube, discussed with nursing staff to put an NG tube this morning and his speech study will be ordered. 3. Adult failure to thrive. [facility] since the [facility] has denied his stay into an LTAC facility. ANJELICA GENAO MD CM:PNTRANS [phone] ANJELICA GENAO MD 06/17/17 0936 interface
--- NOTE | ~2017-06-05 | PR ---
[place], [place] PROGRESS NOTE NAME: ROSEANNE RAMIREZ UNIT #: [id number] ROOM: [facility] DOCTOR: FRANCO SHAH MD,INDIA BIRTHDATE: [birth year] DOS: 06/11/2017 SUBJECTIVE: The patient was seen and examined on 06/11/2017. Remains on mechanical ventilator. The antibiotic patient was continued the patient on broad spectrum at this time. The patient's oxygen supplementation remains stable. This is controlled mode of mechanical ventilation use. Bronchoscopy completed yesterday without any difficulty. The patient has not been noted any acute hemodynamic instability. The feeding. The patient was started for patient yesterday, seems to be tolerated without any issues. OBJECTIVE: VITAL SIGNS: The patient showed the blood pressure was noted as 89/47-99/52. The respiratory rate of the patient recorded 14-18. Heart rate of 52-53. The temperature of the patient noted as normal. HEENT: The patient is currently intubated with endotracheal tube. Orogastric tube is in place. NECK: Supple. Head was atraumatic. CARDIOVASCULAR: S1, S2 audible. LUNGS: The patient noted decreased breath sounds noted in the lungs bilaterally. ABDOMEN: Soft, nontender, bowel sounds present. EXTREMITIES: The patient shows chronic changes of the lower extremities. LABORATORY DATA: Culture of the endotracheal aspirate previously 2 days ago was noted as no bacterial growth. The Gram stain of the bronchial washing of the patient of yesterday for this patient were noted as many white blood cells, few epithelial cells without any organisms. The CBC of the patient of 06/11/2017 shows hemoglobin 8.7, hematocrit 28.4 and platelet count 268,000, WBC count normal. Platelet count was normal. Arterial blood gas of the patient this morning with 40% oxygen patient, pH of 7.43, pCO2 of 48, pO2 100 to assist control mode, wall mechanical ventilation, tidal volume 550 mL. The CMP of the patient that was done this morning shows BUN 36, creatinine was normal, glucose 101. CO2 was 34. Albumin 1.7. Prealbumin was noted as 12. AST 44, pO2 160. Remaining culture of the bronchial washing showed no bacterial growth. The chest x-ray of the patient that was done for the patient this morning, the patient was reviewed, shows reduction of the pleural fluid noted with stable pulmonary infiltration endotracheal tube noted about 3.5 cm above the pamela level. NG tube remains in place. IMPRESSION: 1. The patient who has been currently noted with acute respiratory failure secondary to acute bilateral pneumonia. 2. Superimposed congestive heart failure with pleural fluid. Pleural fluid related to the acute pneumonia. 3. The patient with change in mental status secondary to acute respiratory failure. The patient seemed to be better. The patient is with a sedation vacation patient was noted awake this patient. Discontinue sedation temporarily started low dose sedation. 4. Moderate Severe protein calorie malnutrition. 5. Zosyn. Decreased mobility, elderly status. [place], [place] PROGRESS NOTE NAME: ROSEANNE RAMIREZ UNIT #: [id number] ROOM: [facility] DOCTOR: FRANCO SHAH MD,INDIA BIRTHDATE: [birth year] 6. Mild azotemia. 7. Normal liver function tests secondary congestive heart failure seemed to be resolving. 8. Mild azotemia. 9. Mild hypertension related to the use of sedation as bradycardia secondary to prevent decompensation. PLAN OF TREATMENT: Continuation of current antibiotics, monitor culture results and adjust antibiotics accordingly pleural fluid does not require any acute intervention. Continue maximizing nutritional support. Assessment of long-term acute care facility. Other supportive therapy, plan and management. The patient as previously. DVT prophylaxis. Ventilator point of management to be continued. Usual care, other supportive plan of therapy and care. Starting patient. this patient. X-ray interpretation 50 mL p.o. b.i.d. for this patient because of the mechanical ventilation. Other supportive therapy, plan of management care and treatment. Addition of changes in the treatment the patient will be done for the patient based on progression of the illness. pulmonary critical evaluation and management today. The total time pulmonary critical evaluation and management was 38 minutes. INDIA GAMEZ MD CM:PNTRANS [id number] INDIA SHAH MD 06/11/17 1559 interface
--- NOTE | ~2017-06-05 | CON ---
[place], [place] REPORT OF CONSULTATION NAME: ROSEANNE RAMIREZ UNIT #: [id number] ROOM: [facility] DOCTOR: FRANCO SHAH MD,INDIA BIRTHDATE: [birth year] DOS: 06/10/2017 HISTORY OF PRESENT ILLNESS: The patient was treated on the fifth floor yesterday. He has been noted with progressive change in mental status, rapid response was called for this patient because of the worsening of the hypoxia. The patient has been advised to be intubated and started on mechanical ventilation by the physician. The patient has been intubated and started on mechanical ventilation. He has been continued on mechanical ventilation at this time. The code status has been modified later for the patient post-intubation to DNR-CC arrest, no CPR or other resuscitation to be done, but to continue with the mechanical ventilation. I did speak with patient's son yesterday about that as well and he agreed for that treatment. He has been continued on intravenous antibiotics. The bronchodilator was also continued. The patient will be given diuretic therapy as well. The patient has not been noted any symptoms of ongoing acute hemodynamic instability. Very mild hypotension was noted related to use of Diprivan, which has been already adjusted. The patient ____ Ambrocio catheter and noted gross hematuria, which he has been decreased. Still noted with hematuria present in the urine. PHYSICAL EXAMINATION: VITAL SIGNS: For the patient was noted as normal temperature, respiratory rate of 13-12, heart rate 51-61, mild sinus bradycardia, blood pressure between 90/50-103/62. Intake of the patient was recorded as 798, output 850 mL. Pulse oxygen saturation of the patient noted on 40% oxygen 92% saturation. HEENT: The patient is currently intubated, orogastric tube is in place. NECK: Supple. CARDIOVASCULAR: S1, S2 is audible. LUNGS: The patient was noted without any wheeze or crackles at the present time. Decreased breath sounds are noted generalized in the lungs bilaterally. ABDOMEN: Soft with mild to moderate obesity. Bowel sounds present. EXTREMITIES: Noted without any significant edema. LABORATORY DATA: The arterial blood gas of the patient that was done yesterday after intubation and mechanical ventilation, pH of 7.31, pCO2 of 53, pO2 78 with 50% oxygen supplementation. CBC of the patient that was done this morning, hemoglobin 8.9, hematocrit 29.7, platelet count 300,000. The WBCs were 10,000. There are 12% lymphocytes and 83% neutrophils noted in the differentials. CMP: BUN 32, creatinine was normal. CO2 of 33. Albumin 1.9, total protein of 5.6, AST 73, ALT 222. Arterial blood gas this morning on assist control mechanical ventilation, pH of 7.44, pCO2 of 45, pO2 of 70.8. Culture of the endotracheal aspirate of the patient preliminary showed no bacterial growth. Final culture results were pending. Gram stain from yesterday was reviewed, shows many white blood cells with rare epithelial cells, rare budding yeast. Blood culture from of this month shows no bacterial growth, final results. Chest x-ray of the patient that was done yesterday shows endotracheal tube was noted at the pamela level. Orogastric tube was noted in place. IMPRESSION: 1. The patient who has been currently noted with acute bilateral pneumonia with [place], [place] REPORT OF CONSULTATION NAME: ROSEANNE RAMIREZ UNIT #: [id number] ROOM: [facility] DOCTOR: FRANCO SHAH MD,[facility] BIRTHDATE: [birth year] superimposed congestive heart failure very likely. Progressive respiratory failure, currently requiring intubation and mechanical ventilation. 2. The patient with severe debility. 3. Abnormal liver function testing, most likely secondary to congestive heart failure and passive venous congestion of the liver. 4. Protein-calorie malnutrition, acute traumatic hematuria was noted with Ambrocio catheter. 5. Metabolic alkalosis secondary to chronic hypercarbia. 6. Progressive acute hypercapnic and hypoxic respiratory failure. 7. Bilateral pleural effusions. PLAN OF MANAGEMENT: The patient will be continued with current antibiotics, which should be able to cover the broad spectrum infection for this patient. Currently, the patient has been getting Zyvox for the VRE ____ also cover the gram-positive organism, cefepime has been continued for the medical management of acute pneumonia at 2 grams daily. Hematuria for the patient needs to be monitored closely. The irrigation of the catheter will be done to prevent any clot in the catheter. If necessary 3-way irrigation to be started after changing 3-way irrigation Ambrocio catheter. Details assessment for the patient and the overall prognosis has been discussed with the patient's son as well. Bronchoscopy was planned to be done in the morning to get more accurate identification ____ endobronchial tree. I ordered the prealbumin level for the patient to determine his nutritional status. Maximize the nutritional support as well. Other supportive therapy, plan of management and care. Obtain another chest x-ray of the patient today and then daily basis to assess the progression of the pneumonia and pleural fluids. At this time, the patient would not require any immediate thoracentesis, but the pleural fluid will be monitored. Other supportive therapy, plan of management care and treatment. Usual care, other supportive plan of management and therapy, monitoring arterial blood gases will be continued as well. Additional treatment changes need to be done for this patient based on the progression of the illness. Usual care. All other supportive plan of therapy care and management. All other treatment plan as well. Ventilator bundle management. Continue Lovenox at this time. DVT prophylaxis unless hematuria noted progressive. All other supportive therapy, plan of management care and plan. Usual care. Diprivan for sedation will be continued. Monitor culture results prior to making any further changes in the antibiotic regimen if necessary. Nutrition support, which has been started for this patient today as well. Other supportive plan of management care. Critical care evaluation and management excluding any billable procedure has 38 minutes. [place], [place] REPORT OF CONSULTATION NAME: ROSEANNE RAMIREZ UNIT #: [id number] ROOM: [facility] DOCTOR: INDIA TALAMANTES MD BIRTHDATE: [birth year] INDIA GAMEZ MD CM:CONSTR:REPORT OF CONSULTATION 1245 06/11/17 7340 interface
--- NOTE | ~2017-06-05 | DS ---
[place], [place] DISCHARGE SUMMARY [id number] UN[facility] #: [id number] ROOM: 420 DOCTOR: ANJELICA GENAO MD BIRTHDATE: [birth year] DOS: 06/24/2017 DIAGNOSES: 1. Acute hypoxic respiratory failure, status post intubation. 2. Chronic atelectasis, pneumonia from aspiration. 3. Adult failure to thrive. 4. Panacinar emphysema. 5. History of tobacco abuse until about 4 months ago. 6. Non-ST elevation myocardial infarction. No interventions planned. 7. VRE of the urine. 8. Chronic indwelling Ambrocio from benign prostatic hypertrophy. 9. High risk for aspiration. Please follow aspiration precautions while feeding. 10. Moderate right-sided pleural effusion, status post thoracentesis. Fluid studies so far reveal a transudative effusion. 11. Tiffani intertrigo. 12. Nonsustained ventricular tachycardia. 13. Protein-calorie malnutrition. 14. Poorly healing wound of the left heel, which is almost closed and sacral decubitus, which has completely resolved. HOSPITAL COURSE: The patient is 87 years old, was admitted to the hospital on 06/05, was brought from a local fdc because he was confused. He was evaluated in the ER, was found to have an elevated troponin and appeared to be quite short of breath. He had acute respiratory failure, VRE of the urine and was found to have sepsis with elevated lactic acid and a non-ST elevation NE. Cardiology consultation was obtained. They did not suggest any interventions because of this patient's age and multiple comorbidities. After admission, the patient was placed on IV antibiotics, IV fluids, oxygen supplementation. He has a poorly healing wound on the left heel. He was getting wound VAC at the fdc, which was removed and consultation with was obtained. He also continues to be short of breath. Dr. Ramirez was consulted and advanced COPD and was found to be having multiple episodes of pneumonia with evidence of aspiration. Modified barium swallow was initiated and the patient was allowed to eat pureed diet with thin liquids. Leukocytosis seems to be improving. The patient continued to have increased respiratory distress with a lot of mucus and Dr. Ramirez did take him for bronchoscopy. Bronchoscopy cultures were negative. His overall prognosis continued to be poor. I discussed with the family members about hospice care. Social service was consulted to arrange for that. Same day, he went into acute respiratory failure. The patient's family decided to keep him full code, was transferred to the ICU, was intubated. Vent management was arranged by Dr. Ramirez. Further adjustments in antibiotics were made. The patient did improve slightly with vent support and finally was weaned off the ventilator and transferred back to [facility] where he continued to receive IV antibiotics. [place], [place] DISCHARGE SUMMARY NAME: ROSEANNE RAMIREZ UNIT #: [id number] ROOM: 420 DOCTOR: ANJELICA GENAO MD BIRTHDATE: [birth year] The patient appeared to have some hepatic venous congestion from congestive heart failure. IV diuretics were given. Hepatic studies were done, which were negative. Dr. Hall was consulted. By this time, his mentation seems poor and he had to have an NG tube placed. Post vent support, consideration was to put in a PEG tube in this patient. Dr. Hall did try to arrange for an endoscopy, but by that time, the patient started being more awake and the speech therapist who reevaluated him did give the okay to feed him, so the NG tube and the PEG tube was canceled. The patient has started taking small amounts of feeds. Social service was consulted for placement. LTAC was denied by the insurance company, so the patient had stayed here and is finally being arranged to go to a fdc. His overall condition is quite poor. His cough reflex is very poor and he is high risk for pneumonia. He is also high risk for aspiration pneumonia. He continues to have a chronic indwelling Ambrocio and is high risk to have future bladder infections. The left heel wound is almost completely closed off. The sacral wound is healed. The wound will be managed with honey dressings and . DIET: Pureed with thin liquids. DISCHARGE MEDICATIONS: Zyvox 600 b.i.d. for 3 more days, DuoNeb q. 4, oxygen titrate for pulse ox more than 92, Flomax 0.4, iron 325, aspirin 81 daily, Remeron 15 at bedtime, prednisone 5 daily for 10 days and then discontinued, Mycolog for local application to the intertriginous areas, finasteride 5 mg daily, Ceftin 250 twice daily for 5 days. ANJELICA GENAO MD CM:JAIRO 4 4 ANJELICA GENAO MD 06/24/17914 interface
--- NOTE | ~2017-06-05 | PR ---
[place], [place] PROGRESS NOTE NAME: ROSEANNE RAMIREZ UNIT #: [id number] ROOM: 420 DOCTOR: ANJELICA GENAO MD BIRTHDATE: [birth year] DOS: SUBJECTIVE: The patient states that he is tired. He says he did not want any breakfast. He just wants to sleep. OBJECTIVE: VITAL SIGNS: Graphic trend shows blood pressure ____, pulse of 76, respirations 18, temperature 98.8. LUNGS: Diminished breath sounds, a few scattered rhonchi. HEART: Regular. ABDOMEN: Soft. EXTREMITIES: Without any edema. ASSESSMENT AND PLAN: 1. Vancomycin-resistant Enterococcus of the urine, on antibiotics. 2. Aspiration pneumonia. The patient seems to be stable. Speech has started him on a food. 3. Adult failure to thrive. No decisions as regard to where he is going to be discharged to. Suggested hospice care, but the patient's family has not agreed to it. Routine labs will be ordered for tomorrow. 4. Poorly healing wound of the heel. Continue wound care. 5. Overall prognosis remains poor and guarded. ANJELICA GENAO MD CM:PNTRANS [id number] ANJELICA GENAO MD 06/22/17 1253 interface
--- NOTE | ~2017-06-05 | PR ---
[place], [place] PROGRESS NOTE NAME: ROSEANNE RAMIREZ UNIT #: [id number] ROOM: 420 DOCTOR: FRANCO SHAH MD,INDIA BIRTHDATE: [birth year] DOS: 06/16/2017 SUBJECTIVE: The patient has been noted comfortable at this time, resting. His orogastric tube has been removed. At this time, the patient does not have any orogastric tube in place. He has not been noted in any distress, requiring oxygen supplementation with the nasal cannula, which has been continued. He has not been report any hemodynamic instability. The patient was pending for the ____ admission that has been denied by the insurance. OBJECTIVE: VITAL SIGNS: The patient showed normal temperature, respiratory rate 18, heart rate 65, blood pressure 157/65. The pulse oxygen saturation noted on room air 95% saturation. HEENT: Edentulous status. Oral mucosa was dry. Neck was supple. Head was atraumatic. CARDIOVASCULAR: S1, S2 audible. LUNGS: Noted without any wheezing or crackles at this time. ABDOMEN: Soft and nontender. Bowel sounds present. LABORATORY DATA: CBC this morning, WBC count 14.5, hemoglobin 9, hematocrit 30.5, platelet count of 190,000, 80% segmented neutrophils were noted. CMP showed BUN 25, creatinine was normal. Carbon dioxide 33. Calcium was 8.1. The chest x-ray that was done, 1 view this morning, the patient was personally reviewed and had noted with bilateral basilar area of infiltration of the lungs were also noted The NG tube was noted malpositioned in the mouth, which has been already removed. IMPRESSION: 1. The patient who has been currently noted with acute pneumonia with acute hypercapnic and hypoxic respiratory failure. 2. Severe protein-calorie malnutrition as well. 3. Oropharyngeal dysphagia. 4. Severe debility was noted as well. PLAN OF MANAGEMENT: Reinsertion of the orogastric tube needs to be planned for the nutritional purposes. Continue physical therapy and occupation therapy. Aspiration precaution. Continue to monitor closely for this patient. All other supportive therapy, plan of management and care at this time will be continued as well. Usual care, other treatment plan of management and therapies. [place], [place] PROGRESS NOTE NAME: ROSEANNE RAMIREZ UNIT #: [id number] ROOM: 420 DOCTOR: INDIA TALAMANTES MD BIRTHDATE: [birth year] INDIA GAMEZ MD CM:YU 0 INDIA SHAH MD 06/17/17 0040 interface
--- NOTE | ~2017-06-05 | PR ---
[place], [place] PROGRESS NOTE NAME: ROSEANNE RAMIREZ UNIT #: [id number] ROOM: [facility] DOCTOR: ZULEMA TRUJILLO MD BIRTHDATE: [birth year] DOS: 06/13/2017 SUBJECTIVE: The patient is awake and on BiPAP machine. OBJECTIVE: GENERAL APPEARANCE: Generalized weakness and obesity, decreased breath sounds. VITAL SIGNS: Blood pressure 135/78, heart rate 76 beats per minute, breathing 24 times per minute, temperature 98 degrees Fahrenheit. HEENT AND NECK: Exam within normal limits. CARDIOVASCULAR SYSTEM: Heart rate is regular in rate and rhythm. S1 and S2 normally audible. LUNGS: Clear to auscultation. ABDOMEN: Soft, nontender. No obvious organomegaly. Bowel sounds are present. EXTREMITIES: Without significant cyanosis or edema. IMPRESSION: 1. The patient with acute over chronic respiratory failure and use of mechanical ventilation and extubated. Dr. Ramirez, the on air talent, is following. 2. Adult failure to thrive and poor long-term prognosis. 3. Bilateral pneumonia, being treated with antibiotics. 4. Acute congestive heart failure contributing to respiratory failure. The repeat chest x-ray showed patchy bilateral bibasilar airspace disease with small bilateral pleural effusions, chronic interstitial lung changes, no congestive heart failure. 5. Benign essential hypertension. Blood pressures have been monitored and treated. 6. Moderately severe protein-calorie malnutrition. 7. Exacerbation of chronic obstructive pulmonary disease, being treated with bronchodilators. 8. History of extensive nicotine smoke dependence. ZULEMA TRUJILLO MD CM:PNTRANS [phone] ZULEMA TRUJILLO MD 06/14/17 0129 interface
--- NOTE | ~2017-06-05 | PR ---
[place], [place] PROGRESS NOTE NAME[id number] UNIT #: [id number] ROOM: 420 DOCTOR: FRANCO SHAH MD,INDIA BIRTHDATE: [birth year] DOS: 06/12/2017 PULMONARY FOLLOWUP SUBJECTIVE: The patient was seen today. He remains on mechanical ventilator with reduction in sedation the patient was opening his eyes and follow some of the vocal commands. He has been continued mechanical ventilation as well as the previous antibiotics. The patient has not been noted any symptoms of hemoptysis. He has been continued to be ____ for this patient, which seemed to be tolerated very as well. He has not been noted any evidence of severe ____. Mild hypertension for the patient was noted with a mean arterial pressure greater than 65. OBJECTIVE: VITAL SIGNS: The patient showed temperature remains normal, respiratory rate 12, heart rate 59-60, blood pressure 148 to 117 over 55. The pulse oxygen saturation for the patient on 40% noted 97% saturation. HEENT: Showed the patient remained orally intubated. NECK: Supple. CARDIOVASCULAR: S1, S2 audible. LUNGS: Shows moderate decreased breath sounds. There were no wheezing or crackles at the present time. ABDOMEN: Flat, soft, nontender. Bowel sounds present. CENTRAL NERVOUS SYSTEM: The patient was noted without any gross focal deficit at this time. EXTREMITIES: Do not show any edema. LABORATORY DATA: The patient's arterial blood gas of the patient that was done for this patient on 40% oxygen is controlled mode, pH of 7.41, pCO2 of 51, pO2 of 80.3. The arterial Doppler for the patient completed yesterday 06/11/2017 does not show any significant hemodynamic abnormality. CBC of this morning, WBC count 8.8, hemoglobin 8.7, hematocrit 28.4, platelet count of 246,000. CMP this morning, BUN 29. Creatinine was normal. Albumin of 1.6. The AST was normal. AST 127. The calcium 7.5 uncorrected with calcium. Culture of the bronchial washing noted as normal carla. Chest x-ray done this morning showed endotracheal tube was appropriately placed with the patient ___ about 4 cm above the pamela level. Further reduction and improvement in the aeration was noted with reduction of the pleural as well as lower lobe infiltration. IMPRESSION: 1. The patient who has been currently noted for this patient with acute severe hypoxic respiratory failure, chronic hypoxic respiratory failure. 2. Acute pneumonia. For the patient's lower lungs for this patient. 3. Bilateral pleural fluid, multifactorial related to acute pneumonia and informed the possibly to congestive heart failure, moderate to severe protein-calorie malnutrition, acute anemia for this patient noted chronic without any active bleeding. 4. Elderly status as well. 5. Chronic hypercarbia. 6. Mild azotemia. [place], [place] PROGRESS NOTE NAME: ROSEANNE RAMIREZ UNIT #: [id number] ROOM: 420 DOCTOR: FRANCO SHAH MD,INDIA BIRTHDATE: [birth year] PLAN OF MANAGEMENT: The antibiotic spectrum has been changed for this patient with discontinuation of Zyvox and only continuation of cefepime as the primary antibiotics. Continuation of bronchodilators. Continue maximum nutrition support. Continuation of the other plan of management therapy as in progress. Usual care, other supportive plan of care and treatment. Addition of treatment changes will be done for the patient based on progression of the illness. Long-term acute care facility consultation for this patient would be obtained. Management changes; the patient will be further made based on progression of the illness. This has been managed. The patient overall prognosis has been discussed with the patient son as well at the bedside. Total time 38 minutes pulmonary critical care evaluation and management. INDIA GAMEZ MD CM:PNTRANS [phone] INDIA SHAH MD 06/16/17 0712 interface
--- NOTE | ~2017-06-05 | PR ---
[place], [place] PROGRESS NOTE NAME: [id number] UNIT #: [id number] ROOM: 523 DOCTOR: GIA BOLDEN MD BIRTHDATE: [birth year] DOS: 06/06/2017 SUBJECTIVE: The patient was seen at his bedside today 06/06/2017 for followup of his elevated troponin levels. He is an 86-year-old man who presented to the hospital with multiple medical problems and coronary risk factors, but acutely had urinary sepsis and a moderate elevation of troponin along with acute renal failure. The patient is being treated with antibiotics. Vital signs have stabilized. He still does seem somewhat breathless but is confused. PHYSICAL EXAMINATION: VITAL SIGNS: Today, his pulse is 73 and regular, blood pressure is 113/60. NECK: Supple. He does have jugular distention when sitting at a 30-degree angle. Carotids are full. LUNGS: Respirations are slightly labored. He has decreased breath sounds at the bases. HEART: Has a regular rhythm. EXTREMITIES: Showed no edema. LABORATORY DATA: Serial troponin levels did show a rise and fall pattern. Initial troponin was 0.408, it did peak at 1.490 and has subsequently fallen to 1.090. This may represent a small acute non-ST elevation AK. Unfortunately, given his multiple medical problems, he is not a good candidate for any advanced diagnostic or therapeutic measures. PLAN: For now, I would continue treating his urinary tract infection. We can add a low dose of beta amy to his regimen if tolerated by his blood pressure, but no other diagnostic or therapeutic measures are being considered at this time. We will continue to treat him symptomatically and empirically. I thank Dr. Quesada for asking our advice regarding his care. GIA BOLDEN MD CM:PNTRANS [phone] GIA BOLDEN MD 06/06/171935 interface
--- NOTE | ~2017-06-05 | PR ---
[place], [place] PROGRESS NOTE NAME: [facility]IRE[id number] UNIT #: [id number] ROOM: 420 DOCTOR: ANJELICA GENAO MD BIRTHDATE: [birth year] DOS: SUBJECTIVE: The patient is doing fine without any complaints. He has a moist sounding cough and a low grade fever. OBJECTIVE: GENERAL: He did wake up to call. VITAL SIGNS: Blood pressure is 124/60, pulse of 80, respirations 20, temperature 99.1 with a T-max of 100.3. LUNGS: Diminished breath sounds. HEART: Regular. ABDOMEN: Obese, soft. EXTREMITIES: Without any edema. LABORATORY DATA: White cell count has come down to 13.0, hemoglobin 7.5, hematocrit 35.3, platelets 179. Glucose 130, BUN 17, creatinine 0.59, sodium 147, potassium 3.2, chloride 113, bicarbonate 28. ASSESSMENT AND PLAN: 1. Aspiration pneumonia, possibly responsible for continued low grade fever. Urine culture will also be sent. The patient is on multiple antibiotics. Dr. Ramirez is following. 2. High risk for aspiration. Modified barium swallow did show that the patient could eat pureed diet and thin liquids, which has been ordered. Now, the patient is awake and alert and up in bed. 3. Leukocytosis from underlying pneumonia, which has improved after the change in antibiotics. 4. Adult failure to thrive. Continue supportive symptomatic care. ANJELICA GENAO MD CM:PNTRANS [phone] ANJELICA GENAO MD 06/20/17 1151 interface
--- NOTE | ~2017-06-05 | PR ---
[place], [place] PROGRESS NOTE NAME: ROSEANNE RAMIREZ UNIT #: [id number] ROOM: 420 DOCTOR: FRANCO SHAH MD,INDIA BIRTHDATE: [birth year] DOS: 06/17/2017 SUBJECTIVE: The patient has been noted comfortable at this time, noted awake and alert. The patient was planned for the PEG tube insertion. The orogastric tube and NG tube insertion has been reattempted for this patient, which has not noted successful. OBJECTIVE: VITAL SIGNS: Showed normal temperature, respiratory rate 20, heart rate of 86, blood pressure 118/72. The pulse oxygen saturation for the patient was noted 98% on 40% Venturi mask. HEENT: Showed no new change. NECK: Supple. CARDIOVASCULAR: S1, S2 audible. LUNGS: Without any wheezing or crackles. ABDOMEN: Soft, nontender. EXTREMITIES: Show no edema. LABORATORY DATA: CBC today, WBC count 15.4, hemoglobin 8.3, hematocrit 27.7 and platelet count was normal. CMP of the patient this morning, BUN 27, creatinine was normal. Albumin was 2.3. IMPRESSION: 1. The patient who has been currently noted with resolving acute hypoxic respiratory failure, hypercapnia gradually. 2. Acute aspiration pneumonia as well. 3. Leukocytosis secondary to current acute infection. 4. Oropharyngeal dysphagia. PLAN OF TREATMENT: Agree for this patient for the insertion of the PEG tube for the long-term management of the nutrition support and the dysphagia. Continue aspiration precautions and other respiratory management. INDIA GAMEZ MD CM:PNTRANS [id number] INDIA SHAH MD 06/18/17 0247 interface
--- NOTE | ~2017-06-05 | PR ---
[place], [place] PROGRESS NOTE NAME: ROSEANNE RAMIREZ UNIT #: [id number] ROOM: 523 DOCTOR: GIA BOLDEN MD BIRTHDATE: [birth year] DOS: 06/07/2017 CARDIOLOGY PROGRESS NOTE. SUBJECTIVE: The patient was seen at his bedside today, 06/07/2017 with numerous family members in attendance. In particular, his son and [id number] were there and I discussed his condition with them at length. He is feeling better and is able to feed himself. He has a good appetite. He denies fevers or chills. He denies any chest discomfort or dyspnea. PHYSICAL EXAMINATION: VITAL SIGNS: Today, his pulse is 62 and regular, blood pressure is 96/64, he is afebrile. He weighs 71.0 kg and has a body mass index is 23.1. NECK: Supple. He has no jugular distention. Carotids are full. LUNGS: Respirations are unlabored. His chest is clear. HEART: Has a regular rhythm with an S4 gallop. ABDOMEN: Benign. EXTREMITIES: Showed no edema. LABORATORY DATA: Renal functions have improved and his creatinine has dropped from 2.74 to 2.33. Troponin levels have peaked at 1.49 and then dropped to 1.09. IMPRESSION: 1. Acute non-ST segment elevation myocardial infarction. 2. Urinary sepsis, severe. 3. Possible pneumonia involving the right lung. 4. DNR, CCA status. PLAN: For now, continued medical therapy seems appropriate. His pattern of enzyme elevation certainly is consistent with a small non-ST elevation [place], which may have been triggered by his severe sepsis, but he probably does have underlying coronary disease as well. I discussed the implications of this with the patient's son. For now, we have agreed that conservative therapy is most appropriate and we will not plan on doing any other advance cardiac testing or even risk stratification. He will be treated with beta blockers as tolerated by his blood pressure and aspirin. We will continue to follow him in the hospital with his other physicians. I thank Dr. Quesada for asking our advice regarding his care. [place], [place] PROGRESS NOTE NAME: ROSEANNE RAMIREZ UNIT #: [id number] ROOM: 523 DOCTOR: GIA BOLDEN MDDATE: [birth year] GIA BLODEN MD CM:PNTRANS [phone] GIA BOLDEN MD 06/07/17 1432 interface
--- NOTE | ~2017-06-05 | PR ---
[place], [place] PROGRESS NOTE NAME: ROSEANNE RAMIREZ UNIT #: [id number] ROOM: 420 DOCTOR: ANJELICA GENAO MD BIRTHDATE: [birth year] DOS: 06/19/2017 SUBJECTIVE: The patient is doing poorly. During the night, he did have a high-grade temperature of 100.3 at midnight; temperature has come down, but it is 99.4. OBJECTIVE: VITAL SIGNS: Blood pressure of 111/48, pulse of 78, respirations 18. LUNGS: Diminished breath sounds, scattered rhonchi. HEART: Regular. ABDOMEN: Soft. EXTREMITIES: Without any edema. ASSESSMENT AND PLAN: 1. Elevated white cell count of 24,000 this morning. Blood cultures and urine culture could be sent. Discussed with the patient's family in detail. It is possible that he has aspirated again and developed another pneumonia. 2. High risk for aspiration pneumonia. The patient did have difficulty swallowing. The patient did undergo a sleep study and they recommended pureed food and thin liquids, so the PEG tube placement has been canceled. 3. Adult failure to thrive. His overall prognosis remains extremely poor. He is at risk for developing pneumonia, either aspiration or otherwise. Discussed with the family about keeping him comfortable and also for a hospice consult. Admin Secretary have been notified of that. ANJELICA GENAO MD CM:PNTRANS [phone] ANJELICA GENAO MD 06/20/17 0134 interface
--- NOTE | ~2017-06-05 | PR ---
[place], [place] PROGRESS NOTE NAME: [facility]Z [id number] UNIT #: [id number] ROOM: [facility] DOCTOR: FRANCO SHAH MD,INDIA BIRTHDATE: [birth year] DOS: 06/13/2017 SUBJECTIVE: The patient remains in the Intensive Care Unit. The sedation was decreased. The patient noted awake at this time, opening his eyes. He had not been noted with any respiratory distress. The patient has not been noted any hemodynamic instability in the last 24 hours. The blood pressure was well maintained. There was no evidence of tachycardia. The heart rate of the patient was noted with only mild bradycardia, however, with improvement was noted. OBJECTIVE: VITAL SIGNS: For the patient, which has been recorded, shows the heart rate of patient ranged between 58-73. The blood pressure 108/50-109/58, temperature of the patient noted normal rectally and oral temperature. The respiratory rate changes between 12-16 on the mechanical ventilator. The pulse oxygen saturation of the patient was noted as 99-100% on 35% oxygen supplementation on the assist control mode of mechanical ventilation. HEENT: The patient currently orally intubated. Orogastric tube remains in place and intact. NECK: Supple. CARDIOVASCULAR: S1, S2 is audible. LUNGS: The patient was noted without any wheezing or crackles at the present time. ABDOMEN: Soft and nontender. EXTREMITIES: The patient was noted without any edema, clubbing or cyanosis. LABORATORY DATA: CBC of the patient that was done this morning shows WBC count was normal, hemoglobin 8.3, hematocrit 27.8, and platelet count 246,000. CMP of the patient this morning: BUN 26, creatinine was normal. Carbon dioxide 33. Albumin was 1.7. The chest x-ray of the patient that was done this morning was reviewed from the faxed images directly, shows stable findings, the patient had previously small pleural fluid and lower lobe areas of infiltration, endotracheal tube was noted in appropriate position, and NG tube noted in the stomach. IMPRESSION: 1. The patient who has been currently noted with acute bilateral bacterial pneumonia in lower lungs, most likely to aspiration. Currently treated with antibiotics, responding to the treatment. 2. Moderate to severe protein-calorie malnutrition status. 3. Anemia for this patient was noted. 4. Resolving hematuria. The patient with 3-way Ambrocio catheter irrigation resulting from trauma. The patient pulled his catheter previously when he was agitated a few days ago. 5. Mild azotemia for this patient was also noted, intravascular volume depletion as well. PLAN OF MANAGEMENT: Sedation for this patient at this time will be discontinued temporarily and he will be started on a trial of CPAP of 5, pressure support of 10, for the next couple of hours. If this will be tolerated by the patient, [place], [place] PROGRESS NOTE NAME: ROSEANNE RAMIREZ UNIT #: [id number] ROOM: [facility] DOCTOR: FRANCO SHAH MD,INDIA BIRTHDATE: [birth year] certainly he will be assessed for possibility of liberation from mechanical ventilation. In the meantime, continue the patient other therapy, plan and management as in progress. Usual care, other supportive care as well. Additional treatment changes will be made for the patient based on the progression of his illness. Continuation of current nutritional support. Obtain the prealbumin level in the morning as well. The ____ has been denied for this patient with pending [id number] conference. Total time pulmonary critical evaluation and management of the patient was 33 minutes. INDIA GAMEZ MD CM:PNTRANS [phone] INDIA SHAH MD 06/14/17 0200 interface
--- NOTE | ~2017-06-05 | PR ---
[place], [place] PROGRESS NOTE NAME: ROSEANNE RAMIREZ UNIT #: [id number] ROOM: 420 DOCTOR: ANJELICA GENAO MD BIRTHDATE: [birth year] DOS: SUBJECTIVE: The patient is doing much better this morning; does not have any new complaints. He did try to open his eyes. He did try to converse, but I could not understand him. His tongue seems quite coated and dry. OBJECTIVE: VITAL SIGNS: Graphic trend shows that he is afebrile. Blood pressure is 124/65, pulse of 78, respirations 12, temperature 98.1. LUNGS: Diminished breath sounds, scattered rhonchi and rales heard. HEART: Regular. ABDOMEN: Soft. EXTREMITIES: Without any edema. The patient's G-tube has been removed. The NG tube was placed yesterday, but it was coiled in the esophagus and was removed. ASSESSMENT AND PLAN: 1. Aspiration pneumonia with acute respiratory failure, hypoxic. The patient is off the ventilator. Pneumonia seems to be improving radiologically. The patient still appears quite moist and rhonchorous on exam. 2. High risk for aspiration. The patient is to have repeat speech study today and possible decision on whether he needs to start on a regular feeble with PEG tube placement. I have asked Dr. Hall for a consult to see whether he will be able to insert the NG tube. 3. Adult failure to thrive. PT/OT to be consulted to see whether he can be transferred to a rehab center. 4. Poorly healing wound on the right heel, followed by Podiatry. ANJELICA GENAO MD CM:PNTRANS [phone] ANJELICA GENAO MD 06/16/17 1549 interface
--- NOTE | ~2017-06-05 | PR ---
[place], [place] PROGRESS NOTE NAME: ROSEANNE RAMIREZ UNIT #: [id number] ROOM: 420 DOCTOR: ANJELICA GENAO MD BIRTHDATE: [birth year] DOS: SUBJECTIVE: The patient is doing fine without any complaints this morning. OBJECTIVE: VITAL SIGNS: Graphic trend shows a pressure 129/69, pulse of 80, respirations 18, temperature 97.9. LUNGS: Clear. HEART: Regular. ABDOMEN: Soft. EXTREMITIES: Without any edema. Ambrocio catheter present. LABORATORY DATA: No labs available this morning. Yesterday had a hemoglobin of 8.5, WBC 8.4, platelets 288. No basic is available yet. ASSESSMENT AND PLAN: 1. Adult failure to thrive for placement to a fpc. The patient has multiple medical conditions and comorbidities mix and he may require many admissions in the future. 2. Aspiration pneumonia with chest x-ray showing atelectasis, moderate pleural effusion on the right, thoracentesis was performed, so far cultures are negative and the labs suggest that this is most likely transudative effusion. 3. VRE of the urine, on p.o. Zyvox. 4. Recent non-ST elevation myocardial infarction, no workup is planned. Continue supportive symptomatic care. Transfer arrangements will be made to the fpc today. ANJELICA GENAO MD CM:PNTRANS [phone] ANJELICA GENAO MD 06/24/171853 interface
--- NOTE | ~2017-06-05 | PR ---
[place], [place] PROGRESS NOTE NAME: ROSEANNE RAMIREZ UNIT #: [id number] ROOM: [facility] DOCTOR: ANJELICA GENAO MD BIRTHDATE: [birth year] DOS: 06/10/2017 SUBJECTIVE: The patient was doing poorly yesterday morning. I spoke to the family about getting hospice care. Then he developed some increased respiratory distress and desaturated. The patient's family wanted the code status changed to full and wanted him to be intubated. The patient was brought to the Emergency Room and was intubated. So after intubation, the patient is resting comfortably. This morning, did open his eyes when his name was called. He is awaiting a bronchoscopy by Dr. Ramirez this morning. LABORATORY DATA: This morning shows a sputum culture which is pending. Blood gas pH 7.4, pCO2 of 45, pO2 70, bicarbonate 31, oxygen saturation 95.6. Comprehensive glucose 83, BUN 32, creatinine 1.19, sodium 140, potassium 4.2, chloride 101, bicarbonate 33. SGOT 73, SGPT 222 with some slight improvement. WBC count is 10.1, hemoglobin 8.9, hematocrit 29.7, platelets 300. ASSESSMENT AND PLAN: 1. Acute hypoxic respiratory failure, now intubated and in the ICU. 2. Acute exacerbation of chronic obstructive pulmonary disease. The patient was to undergo bronchoscopy, which is scheduled for today. 3. Non-ST elevation myocardial infarction, prognosis remains poor and guarded. 4. Hepatic venous congestion causing abnormal LFTs. The LFTs seem to be improving, slowly coming down and the liver scan was negative. Hepatitis panel was also negative. 5. VRE of the urine, on antibiotics. 6. Adult failure to thrive with overall prognosis, which is poor and guarded. The family has decided now to make him DNR, comfort care, but intubation is still to be done. We may have to consider transferring the patient to a long-term care facility like [facility], Social Service will be consulted for that. 7. Poorly healing wound on the right heel. Consultation with Podiatry has already been obtained. ANJELICA GENAO MD CM:PNTRANS [id number] ANJELICA GENAO MD 06/10/17 1603 interface
--- NOTE | ~2017-06-05 | PROC NOTE ---
[place], [place] PROCEDURE NOTE NAME: [facility]ANNE [facility]IREZ [facility] [id number] UNIT #: [id number] ROOM: [facility] DOCTOR: FRANCO SHAH MD,INDIA BIRTHDATE: [birth year] DOS: 06/10/2017 BRONCHOSCOPY REPORT PREOPERATIVE DIAGNOSIS: Progressive acute bilateral lower lobe pneumonia. POSTOPERATIVE DIAGNOSES: Progressive acute bilateral lower lobe pneumonia for this patient, with large pneumonia noted in the left lower and right lower lobe. BAL specimen was obtained from the right lower lobe. PROCEDURE DESCRIPTION: Informed consent obtained from the patient and family members. The patient was placed in a negative pressure room. The bronchoscopy was done at the bedside in the Intensive Care Unit. The sedation was continued with intravenous Diprivan. The bronchoscope advanced to the endotracheal tube and lower part of the trachea. Tracheal lumen noted small amount of purulent secretions, suctioned out at the pamela level. Vocal cords were not seen since the patient is already intubated, noted on mechanical ventilation. The pamela was noted sharp. A small amount of purulent secretion present in the right lower lobe endobronchial tree, which was suctioned out. The right upper, middle, and lower lobe bronchi were all examined and bronchial washing was taken. Left upper lobe, lingular bronchial openings were noted without any significant secretions. The patient noticed significant friability of the left lower lobe bronchial opening as well as the bronchus. Purulent secretion was taken. The BAL specimen was obtained from the left lower lobe bronchus as well. It was sent for the appropriate cultures. The procedure was well tolerated by the patient. Postoperative findings will be discussed with the patient's family members later on. No additional change in treatment at this time will be necessary. All the cultures were sent to the lab. INDIA GAMEZ MD CM:PROCNOTE:PROCEDURE NOTE [id number] INDIA SHAH MD
--- NOTE | ~2017-06-05 | PR ---
[place], [place] PROGRESS NOTE NAME: ROSEANNE RAMIREZ UNIT #: [id number] ROOM: 420 DOCTOR: ANJELICA GENAO MD BIRTHDATE: [birth year] DOS: SUBJECTIVE: The patient is doing fine without any complaints. He did wake upon, answered questions appropriately. States he did not sleep. ANJELICA GENAO MD CM:PNTRANS 0 ANJELICA GENAO MD 06/22/1743 interface
--- NOTE | ~2017-06-05 | CON ---
[place], [place] REPORT OF CONSULTATION NAME[id number] UNIT #: [id number] ROOM: 523 DOCTOR: INDIA TALAMANTES MD BIRTHDATE: [birth year] DOS: 06/07/2017 CONSULTATION REQUESTED BY: Dr. Robyn Quesada. REASON FOR CONSULTATION: For the assessment of respiratory status and possible consideration of bronchoscopy because of coughing, chest congestion and other reasons. HISTORY OF PRESENT ILLNESS: This is an 86-year-old white male who has been admitted under the care of Dr. Robyn Quesada on 06/05/2017. [facility] The patient has been noted with extreme as described by the patient's family members. The confusion has been noted to be worsening for this patient as well. The patient has been noted with urinary tract infection with VRE as well. He has been currently assessed and managed for that and also noted with ongoing symptoms of coughing with chest congestion. The patient was still noted with some confusion and very decreased interaction. The history essentially was reviewed for this patient with current documentation, medical record by the other physician and my past consultation as well. He has not reported any symptoms of hemoptysis and has not been described any symptoms of any acute chest pain. REVIEW OF SYSTEMS: Cannot be effectively completed because of the patient's inability to have verbal communication. PAST MEDICAL HISTORY: 1. History of COPD. 2. Chronic hypoxic respiratory failure, on oxygen supplementation. 3. Current urinary tract infection, VRE. 4. Poor wound healing on the patient's right heel, currently treated with a wound VAC. 5. Essential hypertension. 6. History of deep venous thrombosis. 7. History of depression. 8. History of sacral decubitus wound as well. PAST SURGICAL HISTORY: Noted as multiple with 1. Right lower lobectomy. 2. Right hip replacement and left hip replacement. 3. Bilateral cataract extractions with lens implantation. 4. Cholecystectomy. 5. Right knee surgery as well. SOCIAL HISTORY: The patient is currently . He is a resident of a nursing facility. He has been noted with heavy tobacco use, 1-2 packs of cigarettes per day and that has been discontinued several years ago. There is no history of illicit drug use or any alcohol dependence described. FAMILY HISTORY: The father at the age of 89 years, complication of aneurysm of the brain. Mother at the age of 81 years with uterine cancer and other complications. [place], [place] REPORT OF CONSULTATION NAME: ROSEANNE RAMIREZ UNIT #: [id number] ROOM: 523 DOCTOR: FRANCO SHAH MD,INDIA BIRTHDATE: [birth year] MEDICATIONS: From the nursing facility noted the use of Flomax, Ventolin HFA inhaler, Remeron and finasteride. ALLERGIES: DRUG ALLERGIES REPORTED IS FOR 1. SULFA DRUGS. 2. PENICILLINS. 3. PROZAC. 4. CHLOROMYCETIN. CURRENT ADMINISTERED MEDICATIONS: Noted the use of IV Solu-Medrol, Coreg, Flomax, finasteride, Remeron, DuoNeb, doxycycline and Zyvox. PHYSICAL EXAMINATION: GENERAL: This is an 86-year-old male who has been noted to be currently awake and alert, speaks few words but not able to have useful conversation. VITAL SIGNS: Height noted as 5 feet 9 inches, weight was recorded as 156 pounds, BMI 22. Normal temperature noted for this patient since admission, 06/05/2017. The respiratory rate of the patient is recorded as 18-24, heart rate is 77-60 and blood pressure 160/89 to 96/94. Pulse oxygen saturation of the patient noted on 50% Venturi mask is 90% saturation, previously room air was 83% on admission and 100% nonrebreather mask, up to 94% saturation. HEENT: Age-related changes. Head is atraumatic. NECK: Supple. Limited exam. CARDIOVASCULAR: S1, S2 audible. LUNGS: Noted with moderate decreased breath sounds with scattered wheezing. Scattered crackles of the lungs are noted bilaterally. ABDOMEN: Soft, flat, nontender. EXTREMITIES: Does not show any apparent edema at this time. SKIN: No lesions or rashes. MUSCULOSKELETAL: Noted without any obvious deformities. CENTRAL NERVOUS SYSTEM: Could not be performed; however, the patient was moving the lower extremities at his own will. LABORATORY DATA: CBC of the patient on 06/05/2017, hemoglobin 9.8, hematocrit 33.1, WBC count normal and platelet count 442,000. Lactic acid was noted to be severely elevated on admission at 6.5. PT and PTT for the patient on admission on 06/05/2017, INR 1.5, PTT normal. CMP on admission on 06/05/2017, BUN 53, creatinine 2.74, glucose 100. Potassium 5.2, sodium 134, troponin normal. The CT scan of the head for this patient that was done on 06/05/2017 does not show any acute abnormalities or pathologies. Severe sinus disease was noted with evidence of chronic sinusitis. The abdominal and pelvic CT scan without contrast on 06/05/2017 was also done for this patient, reported without any acute abnormalities, a small amount of ascites was reported by the radiologist's report. The troponin of the patient noted as mildly elevated at 0.902 to 1.49 as the max. The lactic acid resolved, normal at 1.3 on 06/06/2017. CBC on 06/06/2017, hemoglobin 8.4, hematocrit 27.9 and platelet count was noted as normal. The BMP for this patient on 06/06/2017, BUN 55, creatinine 2.33. Calcium is 7.1, normal after correction with the albumin level. The culture of the urine for this patient was noted again as findings of heavy gram-positive [place], [place] REPORT OF CONSULTATION NAME: ROSEANNE RAMIREZ UNIT #: [id number] ROOM: 523 DOCTOR: ALFREDO TALAMANTES MDM BIRTHDATE: [birth year] cocci at this time on 06/05/2017. Final identification and sensitivity results are pending. Lower portion of the CT of the thorax ____. CT scan of the abdomen and pelvis was personally reviewed, shows evidence of large consolidation noted in the lower lungs, greater in the right than the left side with air bronchogram with associated small pleural fluids. Chest x-ray for this patient was noted with evidence of thoracic ascending aortic aneurysm finding as well as patchy infiltration noted in both lower lungs, corresponds to the current finding noted in the lower portion CT of the thorax. FINAL IMPRESSION: 1. The patient with acute sepsis resulting in change in mental status and acute hypoxic respiratory failure as a result of acute pneumonia with a strong consideration of gram-positive and gram-negative organism with hospital resident as well previous use of the antibiotics within 90 days. 2. The patient with thoracic aortic aneurysm, which has been noted for this patient in November CT scan of the chest as 4.3 cm as well. 3. Urinary tract infection with vancomycin-resistant enterococci as well. 4. Elevation in troponin, possibly non-ST segment elevation myocardial infarction has been considered, currently treated. 5. Elderly age as well. 6. Nonhealing wound of the right heel for this patient, currently treated with a wound VAC as well. 7. Limited ability with possibility of protein-calorie malnutrition with current physical appearance. 8. Small bilateral pleural fluid as a result of the current acute pneumonia. 9. Acute kidney injury with hyperkalemia for this patient, partially improved for this patient since admission with possible underlying component of chronic kidney disease considered as well. 10. Acute exacerbation of chronic obstructive pulmonary disease as well. PLAN OF MANAGEMENT: The patient is currently getting doxycycline and Zyvox, antibiotic. The doxycycline use is not necessary as the Zyvox should be able to give a good gram-positive covering including for MRSA. For the gram-negative coverage, the patient will be started on intravenous cefepime at this time 2 g daily for the patient based on the current creatinine clearance. The doxycycline will be discontinued. Obtain sputum for Gram stain and culture. Monitor blood cultures and urine cultures. With the use of the Zyvox, closely monitor any reaction including thrombocytopenia. Bronchoscopy would be considered for the patient upon stabilization of the respiratory status if necessary. Monitor pleural fluid for this patient. At this time, no intervention would be needed. Obtain another chest x-ray, preferably PA and lateral view in the morning for this patient as well tomorrow for reassessment of the progression of the pneumonia. Bronchodilator will be given for the patient to mobilize secretions as well. Supportive therapy, plan of management and care. Also, obtain the prealbumin level for this patient as well. Consider modified barium swallow for this patient later on as well. Usual care, other supportive plan of therapy, care and management, plan of therapies. Usual care, other plan of therapies as well. Additional treatment with changes need to be done for this patient with current medical management as well. Continue the use of the bronchodilators which was started initially for the patient for the [place], [place] REPORT OF CONSULTATION NAME: ROSEANNE RAMIREZ UNIT #: [id number] ROOM: 523 DOCTOR: INDIA TALAMANTES MD BIRTHDATE: [birth year] medical management of exacerbation of COPD, which is relatively lower dose at 30 mg b.i.d. Continue to monitor the kidney function of the patient closely for assessment of progression of the kidney functions. Also, continue to monitor the cardiac enzymes for this patient, no immediate intervention possibly at this time will be needed. DVT prophylaxis will be used for this patient as well. Other supportive therapy, plan of management care and treatment and plan of care. Thank you for allowing me to participate in the care of this patient. INDIA GAMEZ MD CM:CONSTR:REPORT OF CONSULTATION 1408 06/08/17 1416 interface
--- NOTE | ~2017-06-05 | PR ---
[place], [place] PROGRESS NOTE NAME: ROSEANNE RAMIREZ UNIT #: [id number] ROOM: [facility] DOCTOR: ZULEMA TRUJILLO MD BIRTHDATE: [birth year] DOS: 06/14/2017 SUBJECTIVE: The patient is more awake, alert and oriented and has been brought down to nasal cannula for oxygen requirement. It is his birthday today and he has turned 87 years old. The patient remains in the ICU. OBJECTIVE: VITAL SIGNS: Blood pressure 113/57, heart rate 76 beats per minute, breathing 16 times per minute, temperature 98.5 degrees Fahrenheit. GENERAL APPEARANCE: The patient is alert and oriented x 3, in no visible distress. Generalized weakness. HEENT AND NECK: Exam within normal limits. CARDIOVASCULAR SYSTEM: Heart rate is regular in rate and rhythm. S1 and S2 normally audible. LUNGS: Clear to auscultation. ABDOMEN: Soft, nontender. No obvious organomegaly. Bowel sounds are present. EXTREMITIES: Without significant cyanosis or edema. IMPRESSION: 1. Acute bilateral pneumonia in the lower lungs, suspected to be aspiration pneumonia, treated with antibiotics with improvement. 2. Moderate to severe protein calorie malnutrition. 3. Anemia of chronic disease. 4. Acute over chronic respiratory failure related to pneumonia, status post intubation and mechanical ventilation. The patient is breathing better now after extubation. 5. Acute congestive heart failure, improved with treatment. 5. Benign essential hypertension treated and controlled. 6. Exacerbation of chronic obstructive pulmonary disease resulting in acute respiratory failure, improving with treatment. 7. History of nicotine smoke dependence. ZULEMA TRUJILLO MD CM:PNTRANS [phone] ZULEMA TRUJILLO MD 06/14/17 2341 interface
--- NOTE | ~2017-06-05 | PR ---
[place], [place] PROGRESS NOTE NAME: ROSEANNE RAMIREZ UNIT #: [id number] ROOM: 420 DOCTOR: ANJELICA GENAO MD BIRTHDATE: [birth year] DOS: SUBJECTIVE: The patient is doing fine without any complaints. Denies any chest pains or shortness of breath. He is fairly awake and alert and tries to communicate, but his speech is quite garbled and is difficult to understand. OBJECTIVE: VITAL SIGNS: Blood pressure is 99/67, pulse of 90, respirations 20, temperature 98.2. LUNGS: Clear. HEART: Regular. ABDOMEN: Soft. EXTREMITIES: Without any edema. Wound on the right heel almost completely closed. Wound on the sacral area is dry. It is not open at all this morning. LABORATORY DATA: No labs available this morning. Chest x-ray shows atelectasis with airspace disease in the right lung with an airspace disease in the left lung also. ASSESSMENT AND PLAN: 1. This is a patient who is currently being treated for VRE of urine, on Zyvox. 2. Adult failure to thrive, should be able [facility] to the [facility] on continued antibiotic regimen. 3. Non-ST elevation myocardial infarction. No workup planned. 4. High risk for aspiration. The patient is eating small amounts of food and so far has tolerated and does not have any evidence of active aspiration. ANJELICA GENAO MD CM:PNTRANS 3 [phone] ANJELICA GENAO MD 06/23/172221 interface
--- NOTE | ~2017-06-05 | PR ---
[place], [place] PROGRESS NOTE NAME[id number] UN[facility] #: [id number] ROOM: [facility] DOCTOR: JOVI LOPEZ DPM BIRTHDATE: [birth year] DOS: 06/12/2017 SUBJECTIVE: The patient was seen for followup of right heel wound. The patient is intubated in the ICU. OBJECTIVE: Neurovascular status is unchanged. Right heel wound is clean with no purulent drainage or malodor. It is decreased in size since I saw him last about a month ago. No bone is visible or palpable, no surrounding edema or erythema, no purulent drainage or malodor. ASSESSMENT: Chronic right heel ulcer. PLAN: Evaluation and management. X-ray was negative and arterial Doppler showed no stenosis or occlusion. Recommend continue wound care and offloading. Continue conservative management. Follow up at a later date for reevaluation. JOVI LOPEZ DPM CM:PNTRANS [id number] JOVI LOPEZ DPM 06/12/176 interface
--- NOTE | ~2017-06-05 | PR ---
[place], [place] PROGRESS NOTE [id number] #: [id number] ROOM: 420 DOCTOR: ANJELICA GENAO MD BIRTHDATE: [birth year] DOS: SUBJECTIVE: The patient wants to eat breakfast this morning. His NG-tube was supposed to be placed yesterday, but the family has decided to put a PEG tube in and scheduled for tomorrow. He has been placed slow IV hydration. OBJECTIVE: VITAL SIGNS: This morning, graphic trend shows that he is afebrile, blood pressure is 131/70, pulse of 104, respirations 18, temperature 97.9. LUNGS: Diminished breath sounds. HEART: Regular. ABDOMEN: Obese, soft, nontender. EXTREMITIES: Without any edema. ASSESSMENT AND PLAN: 1. Acute hypoxic respiratory failure from end-stage chronic obstructive pulmonary disease and aspiration pneumonia. Repeat chest x-ray to be ordered to see whether there are any new changes. Chest x-ray done on the shows small pneumonia and chronic obstructive pulmonary disease. For some reason, the antibiotics were discontinued and so will be starting him on IV doxycycline. 2. degree of aspiration and PEG tube placement tomorrow. The patient is to be kept n.p.o. 3. Adult failure to thrive. Once the PEG tube is placed, I am planning discharge him back to the senior living. ANJELICA GENAO MD CM:PNTRANS [phone] 1 ANJELICA GENAO MD 06/19/17201 interface
--- NOTE | ~2017-06-05 | PR ---
[place], [place] PROGRESS NOTE NAME: ROSEANNE RAMIREZ UNIT #: [id number] ROOM: [facility] DOCTOR: FRANCO SHAH MD,INDIA BIRTHDATE: [birth year] DOS: 06/14/2017 SUBJECTIVE: The patient was successfully liberated from mechanical ventilator service. He has been currently treated with nutrition support with the use of the orogastric tube, which has been capped prior to liberation from mechanical ventilation. He has been noted awake. The patient is able to speak couple of words. He is recognizing his family members as well. He has been denied the long-term acute care facility placement by the insurance director. OBJECTIVE: VITAL SIGNS: For the patient shows a normal temperature, respiratory rate 22, heart rate 91, blood pressure 145/81-115/60. The pulse oxygen saturation of the patient on 35% BiPAP was 99% with nasal cannula this morning was 96% saturation. HEENT: Examination shows head was atraumatic. Eyes nonicterus. Edentulous status. Orogastric tube is in place. CARDIOVASCULAR: S1, S2 audible. LUNGS: The patient was noted with bdyg-ah-vauvsput decreased breath sounds noted bilaterally. ABDOMEN: Soft and nontender. LABORATORY DATA: Arterial blood gas that was done yesterday prior to liberation of mechanical ventilation on the CPAP was noted pH of 7.43, pCO2 of 48, pO2 of 74.0. No other labs were done today. IMPRESSION: 1. The patient was noted with persistent acute hypoxic respiratory failure with improvement noted at this time, does not require mechanical ventilation at this time and treated with BiPAP post-liberation from mechanical ventilator, tolerating well. 2. Protein calorie malnutrition was also noted, which has moderate, treated with nutrition support. 3. The patient with severe debility and muscle deconditioning. 4. Mild azotemia. 5. Anemia was also noted. PLAN OF MANAGEMENT: Obtain the labs for tomorrow with the routine labs. Continuation of the nutritional support because of the current acute aspiration pneumonia, oropharyngeal dysphagia. Other supportive therapy, plan of management and care. Ordered the CBC and CMP for tomorrow and for the next 3 days as well. Chest x-ray monitoring will be done p.r.n. Assessment and management of the patient has been discussed with the patient's son and other family members at the bedside. They will be appealing to the insurance of the patient about his denial to the long-term acute care facility. The patient requires higher level of care for the medical management of current acute illness instead of placement in the shelter facility. [place], [place] PROGRESS NOTE NAME: ROSEANNE RAMIREZ UNIT #: [id number] ROOM: [facility] DOCTOR: INDIA TALAMANTES MD BIRTHDATE: [birth year] INDIA GAMEZ MD CM:PNALIVIA [id number] INDIA SHAH MD 06/15/17 0435 interface
--- NOTE | ~2017-06-05 | PR ---
[place], [place] PROGRESS NOTE NAME: ROSEANNE RAMIREZ UNIT #: [id number] ROOM: 420 DOCTOR: ANJELICA GENAO MD BIRTHDATE: [birth year] DOS: 06/17/2017 SUBJECTIVE: The patient is more awake and alert this morning, does try to answer questions. He states that he does not have any new complaints this morning. OBJECTIVE: VITAL SIGNS: Graphic trend shows a pressure 154/64, pulse of 87, respirations 12, temperature 97. LUNGS: Diminished breath sounds, few scattered rhonchi. HEART: Regular. ABDOMEN: Soft, nontender. EXTREMITIES: Without any edema. Right heel, dressings noted. ASSESSMENT AND PLAN: 1. Aspiration pneumonia with acute hypoxic respiratory failure, now off the ventilator, on antibiotics. 2. Speech evaluation yesterday noting that the patient is high risk for aspiration. I did speak to Dr. Hall yesterday about the possibility of putting tube endoscopically but the patient's family is thinking about a PEG tube, did speak to Dr. Hall this morning about the possibility of PEG tube placement. He will do that this morning. 3. Adult failure to thrive. The patient to be moved to a senior living when more stable. PT/OT has been consulted. Routine labs to be ordered for tomorrow and I am hoping to discharge him by Thursday. ANJELICA GENAO MD CM:PNTRANS 4 ANJELICA GENAO MD 06/17/17 0855 interface
--- NOTE | ~2017-06-05 | PR ---
[place], [place] PROGRESS NOTE NAME: ROSEANNE RAMIREZ UNIT #: [id number] ROOM: [facility] DOCTOR: ZULEMA TRUJILLO MD BIRTHDATE: [birth year] DOS: 06/12/2017 SUBJECTIVE: The patient intubated and on mechanical ventilation, sedated. PHYSICAL EXAMINATION: VITAL SIGNS: Blood pressure 105/56, heart rate 58 beats per minute, breathing 16 times per minute, temperature 98 degrees Fahrenheit. GENERAL APPEARANCE: Patient with generalized weakness, intubation, mechanical ventilation. HEENT AND NECK: Exam within normal limits. CARDIOVASCULAR SYSTEM: Heart rate is regular in rate and rhythm. S1 and S2 normally audible. LUNGS: Clear to auscultation. ABDOMEN: Soft, nontender. No obvious organomegaly. Bowel sounds are present. EXTREMITIES: Without significant cyanosis or edema. IMPRESSION: 1. Acute respiratory failure with intubation and mechanical ventilation, being followed by material requirements worker, Dr. Ramirez. 2. Bilateral pneumonia, being treated with antibiotics. 3. Acute congestive heart failure and chest congestion contributing to the acute respiratory failure. 4. Adult failure to thrive and poor prognosis. 5. Exacerbation of chronic obstructive pulmonary disease and history of extensive nicotine smoke dependence. 6. Moderately severe protein calorie malnutrition. 7. Benign essential hypertension. Blood pressure being monitored and treated. ZULEMA TRUJILLO MD CM:PNTRANS [phone] ZULEMA TRUJILLO MD 06/12/17 2346 interface
--- NOTE | ~2017-06-05 | PR ---
[place], [place] PROGRESS NOTE NAME: ROSEANNE RAMIREZ UNIT #: [id number] ROOM: 420 DOCTOR: DINORA DAVIS DO BIRTHDATE: [birth year] DOS: 06/19/2017 SUBJECTIVE: The patient was seen and examined this morning with Dr. Gamez. The patient continues to show improvement in the respiratory status. The patient is noted awake and alert. The patient denies of any complaints at this time. OBJECTIVE: VITAL SIGNS: Normal temperature, pulse of ____, respiratory rate 18, blood pressure 133/61, pulse ox of 92 on 40% BiPAP machine. HEENT: Shows no changes. NECK: Supple. CARDIOVASCULAR: S1, S2 audible. LUNGS: Without any wheezing or crackles. ABDOMEN: Soft, nontender, nondistended. EXTREMITIES: Show no edema. LABORATORY DATA: White cell count 15.4, hemoglobin 8.3, platelet 170. BUN 22, creatinine 0.63. DIAGNOSTIC STUDIES: The patient had a modified barium swallow, which showed realtime ____. Speech pathology purpose is for barium swallow. ASSESSMENT: 1. Resolving acute hypoxic failure. 3. Acute aspiration pneumonia, improving. 4. Leukocytosis secondary to acute infection. 5. Oropharyngeal dysphagia. PLAN OF TREATMENT: 1. The patient is scheduled for PEG tube today per GI for long-term management of nutrition and support and dysphagia. 2. Continue aspiration precaution and other respiratory management. 3. Supportive care. DINORA DAVIS DO [place], [place] PROGRESS NOTE NAME: ROSEANNE RAMIREZ UNIT #: [id number] ROOM: 420 DOCTOR: DINORA DAVIS DO BIRTHDATE: [birth year] INDIA GAMEZ MD CM:PNTRANS [phone] DINORA DAVIS DO 06/19/17 1345 interface
--- NOTE | ~2017-06-05 | PR ---
[place], [place] PROGRESS NOTE NAME: ROSEANNE RAMIREZ UNIT #: [id number] ROOM: 420 DOCTOR: FRANCO SHAH MD,INDIA BIRTHDATE: [birth year] DOS: 06/18/2017 PULMONARY ADDENDUM NOTE The patient was independently seen with a [id number] encounter today. Physical examination performed. All the labs were reviewed. The patient was noted awake and alert, oxygen supplementation provided by the nasal cannula. All the labs were reviewed. Assessment and management changes were personally made for today's visit. The note done by the special forces medical sergeant, was approved. The patient continues to show improvement in the respiratory status, noted awake and alert, currently awaiting for the placement of the PEG tube. The patient was noted edema of the lower extremity and ultrasound of the upper extremities did excluded any evidence of deep venous thrombosis. The BMP was essentially noted. Normal BUN and creatinine and other electrolytes. PLAN OF TREATMENT: To continue the patient, treat for the respiratory failure management. Use of the oxygen supplementation, BiPAP and other treatment as already in progress. Transfer the patient to the detention facility upon acceptance and authorization by the insurance. INDIA GAMEZ MD CM:YU [phone] INDIA SHAH MD 06/19/17 0304 interface
--- NOTE | ~2017-06-05 | PR ---
[place], [place] PROGRESS NOTE NAME: ROSEANNE RAMIREZ UNIT #: [id number] ROOM: 523 DOCTOR: ANJELICA GENAO MD BIRTHDATE: [birth year] DOS: 06/08/2017 SUBJECTIVE: The patient is much better this morning. He does not have any of the audible wheezes that he had yesterday. He is anxious to go home. He is getting up, taking his oxygen off and wanting to get out of the bed. OBJECTIVE: VITAL SIGNS: Blood pressure is 105/66, pulse of 76, respirations 18, temperature 97.9. LUNGS: Diminished breath sounds, few scattered rhonchi, much improved since yesterday. HEART: Regular. ABDOMEN: Soft, scaphoid, suprapubic catheter draining well. EXTREMITIES: Without any edema. ASSESSMENT AND PLAN: 1. 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 2. Non-ST elevation myocardial infarction. Troponin is on the downward trend on a low-dose beta amy now. No interventions planned. 3. Acute exacerbation of chronic obstructive pulmonary disease, on IV steroids and antibiotics. 4. Elevated liver enzymes, could be hepatic venous congestion. The fluids were discontinued yesterday. Hepatitis profile is ordered and will ask Dr. Hall for an opinion. Liver scan is also ordered. ANJELICA GENAO MD CM:PNTRANS ANJELICA GENAO MD 06/08/1735 interface
--- NOTE | ~2017-06-05 | PR ---
[place], [place] PROGRESS NOTE NAME: ROSEANNE RAMIREZ UNIT #: [id number] ROOM: 420 DOCTOR: FRANCO SHAH MD,INDIA BIRTHDATE: [birth year] DOS: 06/22/2017 PULMONARY PROGRESS NOTE SUBJECTIVE: The patient was seen and examined on 06/22/2017. He has been noted to be comfortable without any distress at this time. He has not reported any acute abnormality. INDIA GAMEZ MD CM:PNTRANS [phone] INDAI SHAH MD 06/23/17 0543 interface
--- NOTE | ~2017-06-05 | PR ---
[place], [place] PROGRESS NOTE NAME: ROSEANNE RAMIREZ [facility] #: [id number] UNIT #: [id number] ROOM: 420 DOCTOR: FRANCO SHAH MD,INDIA BIRTHDATE: [birth year] DOS: 06/23/2017 SUBJECTIVE: He was seen and examined. He has been noted more awake and alert this morning. The patient has been noted some cough, eating his food without any assistance. He has not been noted symptoms of chest pain or any abdominal pain at this time. Chest x-ray which was done for the patient yesterday shows interval development possibility of pleural fluid or increased infiltration in the right lung. Left lung appeared to be clear. PHYSICAL EXAMINATION: VITAL SIGNS: For the patient which has been recorded shows normal temperature, respiratory rate 18, heart rate 81, blood pressure 128/56. The pulse oxygen saturation of the patient noted on 3 liters nasal cannula 93% saturation. HEENT: No new change. NECK: Supple. CARDIOVASCULAR: S1, S2 audible. LUNGS: Showed decreased breath sounds noted in the right lower lung. Scattered crackles of the lungs. ABDOMEN: Soft, nontender. EXTREMITIES: The patient was noted without any edema, clubbing or cyanosis. LABORATORY DATA: Chest x-ray was reviewed personally and was noted with possibility of combination of atelectasis with pleural fluid moderate size for this patient. No other labs were done. IMPRESSION: 1. The patient with acute pneumonia with interval development possibility of pleural fluid with area of atelectasis of the right lung. I have performed the ultrasound of the chest, which is very limited because of the patient's current very stiff status, the patient's inability to position well, but moderate-sized pleural fluid was elicited with ultrasound. 2. The patient with acute aspiration pneumonia, which has been treated with antibiotics, with improving mental status was continued. 3. Severe debility as well with oropharyngeal dysphagia, which has been improving. PLAN OF MANAGEMENT: Because of difficulty position of the patient I will recommended the patient to have ultrasound ____ CT-guided thoracentesis to be done by the Radiology Service in Radiology Department. Pleural fluid will be analyzed for the etiology. Continue antibiotics, continue the current oral fluid administration with close aspiration precautions. Additional treatment changes need to be made based on progression of illness. The case was discussed with Dr. Robyn Quesada about the patient's ongoing medical problems and further medical decisions. [place], [place] PROGRESS NOTE NAME: ROSEANNE RAMIREZ UNIT #: [id number] ROOM: 420 DOCTOR: FRANCO SHAH MD,INDIA BIRTHDATE: [birth year] INDIA GAMEZ MD CM:YU [phone] INDIA SHAH MD 06/24/17 0605 interface
--- NOTE | ~2017-06-05 | PR ---
[place], [place] PROGRESS NOTE NAME[id number] UNIT #: [id number] ROOM: [place] [address] DOCTOR: FRANCO SHAH MD,INDIA BIRTHDATE: [birth year] DOS: 06/09/2017 The patient was independently seen [id number] encounter. History was confirmed. Physical examination personally performed. All the labs were reviewed. The decision made for the patient management was personally made for this patient's today's management. The note done by the site medical director was approved. This is an 86-year-old white male who has been currently treated in the hospital noted with several ongoing medical problems including acute respiratory failure, acute congestive heart failure with acute bilateral pneumonia with acute sepsis. The patient was also noted abnormal liver function testing. The patient had ultrasound of the abdomen completed yesterday. SUBJECTIVE: The patient noted with severe agitation last night, pulled out his IV. The patient was given Ativan, was on the medication. Currently, the patient has been sedated. He has not been noted with any symptoms of hemoptysis. Diuretic therapy started for the patient yesterday as I reviewed the patient's chest x-ray yesterday. This morning, the patient has been noted on oxygen supplementation with Venturi mask. The family members of the patient were present at bedside with the patient. The patient has been suggested possibly to the hospitalist services. OBJECTIVE: VITAL SIGNS: Review of vital signs which were done for this patient shows the temperature noted as normal with the respiratory rate 20, heart rate ____ , blood pressure 113/77. Pulse oxygen saturation was noted as 96% saturation 100% oxygen supplementation. LUNGS: Noted with decreased breath sounds with crackles of the lungs bilaterally with scattered expiratory wheezing. There were no scattered crackles of the lungs noted. LABORATORY DATA: Which were done today for this patient was noted with CBC; WBC count 11.9, hemoglobin 9.5, hematocrit 30.9, platelet count of 333,000. CMP of the patient noted; BUN 32, creatinine was normal. AST 129, ALT was noted as 330. I compared the LFTs. Partial reduction of the AST, ALT was noted. Nuclear medicine scan for the patient, which was done on 06/08/2017 shows a normal examination. IMPRESSION: 1. The patient with change in mental status, acute sepsis, confusional status with agitation. 2. Acute pneumonia. 3. Acute congestive heart failure. 4. Passive congestion. They were most likely congestive heart failure, that would be the reason for the abnormal liver function testing. Hepatitis A and B serology for the patient was was noted negative. PLAN OF MANAGEMENT: At this time, the patient will be kept in comfortable status. He will be ordered the IV Haldol. Minimize the use of Ativan to [place], [place] PROGRESS NOTE NAME: ROSEANNE RAMIREZ UNIT #: [id number] ROOM: [place] [address] DOCTOR: FRANCO SHAH MD,INDIA BIRTHDATE: [birth year] prevent further delirium and agitation. Other supportive therapy, plan and management to be continued as well. Hospice assessed the patient, might be done today. However, the family members have not made a final decision about hospice care at this time. Usual care. All other supportive plan of therapy and care. INDIA GAMEZ MD CM:PNTRANS [phone] INDIA SHAH MD 06/10/17 0247 interface
--- NOTE | ~2017-06-05 | PR ---
[place], [place] PROGRESS NOTE [id number] #: [id number] ROOM: 420 DOCTOR: FRANCO SHAH MD,INDIA BIRTHDATE: [birth year] DOS: 06/24/2017 SUBJECTIVE: He has been noted comfortable. He had a thoracentesis done yesterday about 660 mL of pleural fluid was removed. The patient was in Radiology's services. The patient has not been noted any hemodynamic instability at this time. Remains awake and alert, eating his foot. Modified diet for the dysphagia has not been noted any coughing, chest pain or sputum expectoration. OBJECTIVE: VITAL SIGNS: For the patient which has been recorded shows normal temperature, respiratory rate 18, heart rate 80, blood pressure 129/69. The pulse oxygen saturation on 2 liters nasal cannula 95% saturation. HEENT: Edentulous status. NECK: Supple. CARDIOVASCULAR: S1, S2 audible. LUNGS: The patient was noted without any wheezing or crackles at the present time. Breaths are noted improved. The patient's right lower lung. ABDOMEN: Soft, nontender. LABORATORY DATA: BMP today was noted as normal ____ pleural fluid analysis, cholesterol was noted less than 50. Albumin is 0.8. The amylase of 34. Triglycerides of 4. Glucose 113, total protein 1.8 and LDH of 82. Cell count differential noted as WBC count of 245, 66% neutrophils noted, 28% lymphocytes. Acid fast bacilli of the bronchial washing 06/10 the patient noted negative smear with pending cultures. Cultures of the pleural fluids were noted as preliminary. No bacterial growth. The Gram stain shows moderate white blood cells without any organisms. The blood culture from the 06/19 was normal. I have obtained a chest x-ray of the patient, PA lateral view this morning, which shows evidence of aneurysm. The small pleural fluid was still noted bilaterally, significant improvement in aeration noted. IMPRESSION: 1. The patient who has been noted with current pleural fluid related to the congestive heart failure, most likely recent the patient not related to the pneumonia. 2. Resolving acute pneumonia. 3. Stable acute hypoxic and hypercapnic respiratory failure. 4. Oropharyngeal dysphagia as well. PLAN OF MANAGEMENT: The patient intravenous fluids were discontinued yesterday. Diuretic therapy. The patient will be beneficial to resolve the addition pleural fluid for admission, which are noted bilaterally. Continue medical management UTI with the Zyvox. Oxygen supplementation to be continued. Consider transfer the patient to the nursing facility most likely tomorrow. Other usual plan of care and therapies. [place], [place] PROGRESS NOTE NAME: ROSEANNE RAMIREZ UNIT #: [id number] ROOM: [facility] DOCTOR: INDIA TALAMANTES MD BIRTHDATE: [birth year] INDIA GAMEZ MD CM:PNTRANS [id number] INDIA SHAH MD 06/25/17 0512 interface
--- NOTE | ~2017-06-05 | PR ---
[place], [place] PROGRESS NOTE NAME: ROSEANNE RAMIREZ [facility] #: [id number] UNIT #: [id number] ROOM: 420 DOCTOR: FRANCO SHAH MD,INDIA BIRTHDATE: [birth year] DOS: 06/20/2017 PULMONARY PROGRESS NOTE SUBJECTIVE: The patient is supposedly to have a PEG tube inserted yesterday, but the patient has been noted spike of fever and the procedure was canceled for this patient and not done because of that. He has not been able to take significant amount of food orally as well. The patient has not been reported any symptoms of hemoptysis. OBJECTIVE: VITAL SIGNS: For the patient shows low-grade fever was noted 99.5 degree Fahrenheit this morning. The respiratory rate of the patient recorded as 20-27, heart rate 97-83. The blood pressure 97/83. Pulse oxygen saturation of the patient was noted as saturation of 97% with 40% Venturi mask and with the BiPAP. HEENT: The patient is edentulous status. NECK: Supple. Dryness of his oral mucosa. CARDIOVASCULAR: S1, S2 audible. LUNGS: Basilar crackles, no wheezing. ABDOMEN: Soft, nontender. EXTREMITIES: Still remains unchanged. LABORATORY DATA: CBC of the patient this morning, the patient noted WBC count of 13,000, hemoglobin 7.5, hematocrit 25.3, platelet count 179,000. The CBC of the patient that was done just showed WBC count significantly elevated at 20.5 with hemoglobin 8.2, hematocrit 27.0 and platelet count at that time was noted as normal. The chest x-ray was also obtained for this patient yesterday was reviewed for this patient shows basilar area of atelectasis and/or infiltration, mild pulmonary venous congestion markings. The changes for this patient was not noted any new this patient as compared to the chest x-ray which were done on 06/16/2017 comparison. Urine culture for this patient was noted heavy growth of gram-positive cocci for this patient's culture was taken yesterday. The identification and sensitivities and organism pending. IMPRESSION: 1. Possibility of urinary tract infection superimposed with the previous resolving acute pneumonia. 2. Stable acute respiratory failure. 3. Oropharyngeal dysphagia. 4. The patient protein-calorie malnutrition and other issues which has been already addressed. PLAN OF TREATMENT: The patient has been continued on oxygen supplementation. The patient with the use a Venturi mask and also to use the BiPAP for this patient for stability of respiratory status. There was no acute new pneumonia. The patient noted in addition source of infection should also be considered if the white cell count was up again. Reduces the stool for C. diff toxin. Anemia to be monitored, possible blood transfusion with continued drop progressively. Usual care, other supportive plan of management, aspiration precautions. Other usual care, plan of therapy. [place], [place] PROGRESS NOTE NAME: ROSEANNE RAMIREZ UNIT #: [id number] ROOM: [facility] DOCTOR: INDIA TALAMANTES MD BIRTHDATE: [birth year] INDIA GAMEZ MD CM:PNTRANS [id number] INDIA SHAH MD 06/22/17 0546 interface
--- NOTE | ~2017-06-05 | PR ---
[place], [place] PROGRESS NOTE NAME: ROSEANNE RAMIREZ [facility] #: [id number] UNIT #: [id number] ROOM: [facility] DOCTOR: ERIC VILLANUEVA DPM BIRTHDATE: [birth year] DOS: 06/11/2017 SUBJECTIVE: The patient was seen for followup right heel wound. OBJECTIVE: Full thickness ulceration noted posterior aspect right heel, which probes to bone. No signs of abscess. No purulent drainage or foul odor. Ester-wound edema noted. No ascending cellulitis. ASSESSMENT: Stage 4 ulceration, right heel. PLAN: Continue Medihoney and dressing daily. Continue the PRAFO. The patient will be seen for followup of vascular studies and radiographs are pending. ERIC VILLANUEVA DPM CM:YU [phone] ERIC VILLANUEVA DPM 06/11/17 1428 interface
--- NOTE | ~2017-06-05 | PR ---
[place], [place] PROGRESS NOTE NAME[id number] #: [id number] ROOM: 523 DOCTOR: MASHA YORK MD BIRTHDATE: [birth year] DOS: 06/08/2017 SUBJECTIVE: The patient is sitting up in bed. From the cardiology point of view, denies any specific cardiac complaint. No reported chest pain, heaviness, tightness. No symptomatic palpitation. OBJECTIVE: VITAL SIGNS: Blood pressure 126/60, heart rate 64, respiratory rate of 16, temperature 97.3. NECK: Good upstroke, no bruit. HEART: S1, S2 with no rub. LUNGS: Decreased air movement, but no saw wheezing or rales. ABDOMEN: Soft, nontender, present bowel sounds. EXTREMITIES: Lower extremities, no significant edema. LABORATORY DATA: White count 6.6; hemoglobin 9.4 compared to 9.8 on June 05; potassium is 4.8 and GFR more than 60%. Abnormal ALT and AST. Troponin is 1.490 with downtrend. ASSESSMENT AND PLAN: A presentation with confusion and weakness with evidence of a small non-STEMI. The patient denies any specific cardiac complaint. Cannot rule out the possibility of being weak as a presenting symptoms for his myocardial infarction. EKG showing no acute changes. Cardiac velarde, the patient's vital signs does not allow any further titration for now. I will continue with Coreg and aspirin. I will be checking the results of the echocardiogram for any wall motion abnormalities. As noted with Dr. Boles's note, the extent of workup was discussed with patient's family and his extended family and all agreed that we will be following a conservative strategy for that we will hold on a stress test. Increase activity, the patient will be seen within 2-4 weeks as an outpatient with Dr. Boles upon discharge. No further cardiac testing at this time. MAHSA YORK MD CM:PNTRANS [phone] MAHSA YORK MD 06/09/17 0500 interface
--- NOTE | ~2017-06-05 | WRIGHTHP ---
[place], [place] PATIENT HISTORY AND PHYSICAL EXAM NAME: [facility] RAMIREZ [facility] [id number] UNIT #: [id number] ROOM: 523 DOCTOR: ANJELICA GENAO MD BIRTHDATE: [birth year] DOS: 06/05/2017 HISTORY OF PRESENT ILLNESS: This patient is 86 years old. This patient is very well known to us, was brought into the Emergency Room with complaints of confusion and increased respirations. The patient this morning was quite confused, pulling at his clothes, does not answer any questions appropriately. As part of the evaluation in the ER, troponin was drawn and was pretty elevated and the patient has been getting troponins every 3 hours and it has been steadily rising. He denies having any chest pain this morning, but he has a very moist cough and is mildly short of breath with low oxygenation requiring Ventimask for improvement in the oxygen saturations. PAST MEDICAL HISTORY: Significant for: 1. Recent hospitalization with urinary tract infection. 2. History of aspiration pneumonia with speech study showing that he is okay to swallow regular food. 3. Poorly healing wound of the right heel. He had a wound VAC at the halfway. 4. Centrilobular emphysema with heavy nicotine abuse until a few months ago. 5. Moderate protein calorie malnutrition. 6. Mild depression, major. 7. Benign prostatic hypertrophy with chronic urinary retention with indwelling Ambrocio for many months. 8. History of DVT of the right extremity in 01/2017. MEDICATIONS: Flomax, finasteride, mirtazapine, breathing treatments. SOCIAL HISTORY: History of heavy smoking. Denies using any alcohol. Lives at home with his daughter. PHYSICAL EXAMINATION: VITAL SIGNS: Graphic trend shows that he is afebrile. Pressure is 103/47, pulse of 66, respirations 20. LUNGS: Diminished breath sounds, few scattered rhonchi heard bilaterally. HEART: Regular. ABDOMEN: Soft, scaphoid, indwelling Ambrocio present. EXTREMITIES: Without any edema. Right leg about 1 cm tunneled wound in the right heel. ASSESSMENT AND PLAN: 1. Urinary tract infection with Enterococcus faecalis, which is resistant to vancomycin. The patient is placed on Zyvox IV. 2. Possible sepsis with elevated lactic acid. Blood cultures have been sent. Urine culture noted. 3. Non-ST elevation myocardial infarction. EKG pending this morning. Troponins have been steadily rising from 0.92-1.490 and it has dropped down 1.090 this morning. Cardiology consultation has been obtained. The patient is 86 years old. His code status is DNR arrest and I am not sure whether the family would like to proceed with further investigations. 4. Poorly healing wound. A wound consult with has been obtained. [place], [place] PATIENT HISTORY AND PHYSICAL EXAM NAME: ROSEANNE RAMIREZ UNIT #: [id number] ROOM: 523 DOCTOR: ANJELICA GENAO MD BIRTHDATE: [birth year] The wound culture done recently showed no bacterial growth. Overall, prognosis remains poor and guarded. ANJELICA GENAO MD CM:HISPHYS:PATIENT HISTORY AND PHYSICAL EXAMINATION 5 3 ANJELICA GENAO MD 06/06/17923 interface
--- NOTE | ~2017-06-05 | WRIGHTHP ---
[place], [place] PATIENT HISTORY AND PHYSICAL EXAM NAME: ROSEANNE RAMIREZ UNIT #: [id number] ROOM: 420 DOCTOR: ANJELICA GENAO MD BIRTHDATE: [birth year] DOS: 06/05/2017 NO DICTATION. ANJELICA GENAO MD CM:HISPHYS:PATIENT HISTORY AND PHYSICAL EXAMINATION [phone] ANJELICA GENAO MD 06/16/17 1150 interface
--- NOTE | ~2017-06-05 | PR ---
[place], [place] PROGRESS NOTE NAME: ROSEANNE RAMIREZ UNIT #: [id number] ROOM: [place] [address] DOCTOR: DINORA DAVIS DO BIRTHDATE: [birth year] DOS: 06/09/2017 SUBJECTIVE: The patient has been noted to be sleepy at this time, continues to be on BiPAP. There were no symptoms of any chest pain or hemoptysis. Overnight, the patient was being combative and the patient pulled the Ambrocio out. There is blood noted in the Ambrocio catheter. OBJECTIVE: VITAL SIGNS: Temperature 97.2, pulse 102, respiratory rate 20, blood pressure of 113/77, bedside pulse ox is 92 on Venturi mask of 50%. HEENT: Shows no changes. NECK: Supple. CARDIOVASCULAR: S1, S2 audible. LUNGS: Bibasilar crackles noted. ABDOMEN: Soft, nontender, nondistended. LABORATORY DATA: White cell count 11.9, hemoglobin 9.5, platelet count 333. Chemistry: BUN 32, creatinine 1.17. ASSESSMENT: 1. Acute respiratory failure with superimposed possible congestive heart failure with acute pneumonia from aspiration. 2. Abnormal liver function, etiology unclear. PLAN: 1. Continue the patient on IV Lasix 40 mg once a day for the next couple of days. 2. The patient's family is planning to consider hospice think about it and will let us know if they decide to have patient on hospice or not. 3. Supportive plan of management and care at this time. 4. Continue to monitor. Additional treatment changes will be done based on the progression of the illness. DINORA DAVIS DO [place], [place] PROGRESS NOTE NAME: ROSEANNE RAMIREZ UNIT #: [id number] ROOM: [place] [address] DOCTOR: DINORA DAVIS DO BIRTHDATE: [birth year] INDIA GAMEZ MD CM:PNTRANS [phone] DINORA DAVIS DO 06/10/17 0004 interface
--- NOTE | ~2017-06-05 | PR ---
[place], [place] PROGRESS NOTE NAME: [facility]NE RAMIREZ [id number] UNIT #: [id number] ROOM: [facility] DOCTOR: JOVI LOPEZ DPM BIRTHDATE: [birth year] DOS: 06/15/2017 SUBJECTIVE: This patient is seen for followup of his right heel wound. The patient is extubated, but still in ICU. OBJECTIVE: Neurovascular status is unchanged. The right plantar posterior heel continues to improve with no signs of infection. There is no surrounding edema, erythema. No purulent drainage or malodor, continues to get smaller clinically. ASSESSMENT: Chronic right heel wound. PLAN: continue offloading and wound care. Continued conservative management. Follow up at a later date for reevaluation. JOVI LOPEZ DPM CM:YU [id number] JOVI LOPEZ DPM 06/15/17 1535 interface
--- NOTE | ~2017-06-05 | PR ---
[place], [place] PROGRESS NOTE NAME: ROSEANNE RAMIREZ UNIT #: [id number] ROOM: [facility] DOCTOR: INDIA TALAMANTES MD BIRTHDATE: [birth year] DOS: 06/15/2017 SUBJECTIVE: He has been noted awake. Orogastric tube is in place which is planned to be changed to NG tube for the feeding purposes. The patient has been tolerating the feeding. He has been using oxygen supplementation with BiPAP intermittently. The patient has not been noted any symptoms of hemodynamic instability at this time. OBJECTIVE: VITAL SIGNS: The patient remains afebrile. Respiratory rate recorded as 12, heart rate 72, blood pressure 108/47. Pulse oxygen saturation on 3 L is 100%. HEENT: Shows dryness of oral mucosa. Orogastric tube is in place. NECK: Supple. CARDIOVASCULAR: S1, S2 audible. LUNGS: Decreased breath sounds noted in lungs bilaterally. ABDOMEN: Soft and nontender. LABORATORY DATA: CMP this morning was noted as normal BUN and creatinine, CO2 was 35. Albumin 1.8. Total protein 5.0. CBC this morning, hemoglobin 8.1, hematocrit 26.6, and platelet count 201,000. Eosinophils were noted elevated at 4.5. IMPRESSION: 1. The patient who has been currently noted with acute on chronic hypercapnic hypoxic respiratory failure, status post liberation from mechanical ventilator, still required use of the ventilatory support with BiPAP. 2. The patient with protein-calorie malnutrition. 3. Advanced age and muscle deconditioning. 4. Oropharyngeal dysphagia. 5. Anemia. PLAN OF MANAGEMENT: Continue maximal nutritional support for this patient as tolerated. Physical therapy and occupation therapy. The patient may be transferred to step down unit at this time. BiPAP to be continued at night time and p.r.n. during day. The oxygen supplementation to be continued otherwise. Obtain another albumin level in the morning. Monitor anemia, blood transfusion at this time would not be needed. [place], [place] PROGRESS NOTE NAME: ROSEANNE RAMIREZ UNIT #: [id number] ROOM: [facility] DOCTOR: INDIA TALAMANTES MD BIRTHDATE: [birth year] INDIA GAMEZ MD CM:YU 1037 INDIA SHAH MD 06/16/17 002 interface
--- NOTE | ~2017-06-05 | PR ---
[place], [place] PROGRESS NOTE NAME: [facility]IRE[id number] UN[facility] #: [id number] ROOM: 523 DOCTOR: ANJELICA GENAO MD BIRTHDATE: [birth year] DOS: 06/07/2017 SUBJECTIVE: The patient has audible rhonchi, has a very moist sounding cough this morning. Appreciate DrTeto input. PHYSICAL EXAMINATION: VITAL SIGNS: Blood pressure is 160/89, pulse of 68, respirations 20, temperature 97.3. LUNGS: Diminished breath sounds, scattered rhonchi. HEART: Regular. ABDOMEN: Obese, soft, scaphoid with a suprapubic catheter in place. EXTREMITIES: Without any edema. ASSESSMENT AND PLAN: 1. Acute exacerbation of chronic obstructive pulmonary disease. The patient may require a bronchoscopy because his cough reflex is very poor and he is unable to bring up any mucus. 2. Non-ST elevation myocardial infarction, not a candidate for any interventions. Continue supportive symptomatic care. 3. Urinary tract infection with VRE, on IV Zyvox. 4. Methicillin-resistant Staphylococcus aureus of the nares. Bactroban ointment will be ordered. 5. Poorly healing wounds. The patient to continue on his wound care. ANJELICA GENAO MD CM:PNTRANS [phone] ANJELICA GENAO MD 06/09/17 0815 interface
--- NOTE | ~2017-06-05 | PR ---
[place], [place] PROGRESS NOTE NAME: ROSEANNE RAMIREZ UNIT #: [id number] ROOM: 420 DOCTOR: DINORA DAVIS DO BIRTHDATE: [birth year] DOS: 06/18/2017 SUBJECTIVE: The patient has been noted to be comfortable at this time. Denies any current complaints. OBJECTIVE: VITAL SIGNS: Normal temperature, respiratory rate 20, heart rate 86, blood pressure 118/72, pulse ox 100% on 40% low rate of BiPAP machine. HEENT: Showed no changes. NECK: Supple. CARDIOVASCULAR: S1, S2 audible. LUNGS: Without any wheezing or crackles. ABDOMEN: Soft, nontender. EXTREMITIES: No edema. LABORATORY DATA: CBC: White cell count , hemoglobin 8.3, platelets of 170. BUN 22, creatinine 0.63. ASSESSMENT AND PLAN: 1. Resolving acute hypoxic respiratory failure. 2. Hypercapnia. 3. Acute aspiration of pneumonia. 4. Leukocytosis secondary to acute infection. 5. Oropharyngeal dysphagia. PLAN OF TREATMENT: 1. The patient is scheduled for PEG tube tomorrow for GI for long-term management of nutrition and support and dysphagia. 2. Continue aspiration precaution and other respiratory management. DINORA DAVIS DO [place], [place] PROGRESS NOTE NAME: ROSEANNE RAMIREZ UNIT #: [id number] ROOM: 420 DOCTOR: DINORA DAVIS DO BIRTHDATE: [birth year] INDIA GAMEZ MD CM:PNTRANS [phone] DINORA DAVIS DO 06/18/17 1545 interface
--- NOTE | ~2017-06-05 | PROC NOTE ---
[place], [place] PROCEDURE NOTE NAME: ROSEANNE RAMIREZ UNIT #: [id number] ROOM: 420 DOCTOR: KOSTAS AVILES BIRTHDATE: [birth year] DOS: 06/18/2017 MODIFIED BARIUM SWALLOW LOCATION: [facility], room 420. ORDERING PHYSICIAN: Dr. Quesada. RADIOLOGIST: Dr. Sweet. BACKGROUND INFORMATION: The patient is an 87-year-old male who was seen for modified barium swallow. This test was ordered to determine candidacy for resumption of p.o. intake. This patient is known to this department as he had been receiving prior therapy services. He had been tolerating a regular diet and thin liquids. He suffered a decline in status, needing ventilator placement. He is now weaned from the ventilator. Oral gastric tube had been placed, however, is discontinued. The patient was seen at bedside yesterday, alert, responsive and following oral motor commands; therefore, this test was ordered to determine if he was appropriate to resume p.o. intake. His medical history is significant for acute hypoxic respiratory failure, malnutrition, bilateral pneumonia, UTI and severe sepsis. For today's assessment, he was alert, verbal and able to follow simple commands. Generalized weakness was displayed. Congested cough was noted at rest. The patient was observed to cough and spit out blood-tinged mucous prior to the assessment. The patient was receiving oxygen via mask. Oral peripheral examination revealed consistent open mouth position. The patient is edentulous. Labial skills were reduced in strength and range of motion. Lingual skills were also reduced in strength and range of motion. Volitional cough was weak. The patient was unable to volitionally swallow. METHODS AND MATERIALS USED FOR THE EXAM: The patient was positioned in the left lateral plane and the exam was viewed under fluoroscopy. The patient was presented with a variety of consistencies to assess swallowing skills including applesauce mixed with barium presented in half teaspoon amounts and liquids given in honey thick, nectar thick and thin liquid consistencies. These were presented by cup and spoon in single sip size amount. ORAL PHASE: The patient achieved adequate labial seal around cup and spoon with no anterior loss. Bolus formation and transit were adequate. Tongue to palate contact was within normal limits. Tongue to posterior pharyngeal wall contact was mildly reduced. Velar functioning was within normal limits. PHARYNGEAL PHASE: The pharyngeal swallow occurred within a timely manner. During the swallow, laryngeal elevation and epiglottic function were adequate. No penetration or aspiration occurred with any consistency. Pooling in the vallecula was observed with the honey and nectar thick liquids. The patient had difficulty clearing these; however, when liquid wash was attempted with a thin liquid, he was able to successfully clear most all of the prior residue. ESOPHAGEAL PHASE: This phase of the swallow was not formally assessed during [place], [place] PROCEDURE NOTE NAME: ROSEANNE RAMIREZ UNIT #: [id number] ROOM: [facility] DOCTOR: KOSTAS AVILES BIRTHDATE: [birth year] this exam. IMPRESSIONS AND RECOMMENDATIONS: Based upon assessment results, this 87-year-old patient presents with a mild to moderate oropharyngeal dysphagia. The patient did well with pureed consistency. Soft solid was presented; however, the patient would not accept it saying that he could not chew it. Residue was observed in the vallecula with nectar and honey-thick liquids, which did clear with thin liquid. No penetration or aspiration occurred with any consistency. Recommend pureed food and thin liquid. Recommend upright seating for meals, small bites and sips, alternating liquids and solids and double swallows after every couple of bites. Results and recommendations were shared with the patient's nurse who verbalized understanding. Followup therapy is recommended focusing on strengthening exercises, use of strategies and education to ensure safe tolerance of diet. Thank you very much for this referral. Should you have any questions regarding this patient, please contact the speech pathologist at [phone]. KOSTAS AVILES CM:PROCNOTE:PROCEDURE NOTE [id number] KOSTAS AVILES
--- NOTE | ~2017-06-05 | PR ---
[place], [place] PROGRESS NOTE NAME: ROSEANNE RAMIREZ UNIT #: [id number] ROOM: [facility] DOCTOR: ANJELICA GENAO MD BIRTHDATE: [birth year] DOS: SUBJECTIVE: The patient is on the ventilator. Eyes opened slightly with call, but otherwise had no response. OBJECTIVE: VITAL SIGNS: Blood pressure is 89/47, pulse of 50, respirations 14 and temperature 97.8. LUNGS: Diminished breath sounds. HEART: Regular, bradycardic, heart rate in the 50s. ABDOMEN: Soft, scaphoid. EXTREMITIES: Without any edema. Three-way catheter present. LABORATORY DATA: Urine is clearing. Sputum culture shows no bacterial growth. Comprehensive glucose 101, BUN 36 and creatinine 1.28. Electrolytes were normal. Liver enzymes again coming down. WBC count is 9.2, hemoglobin 8.7, hematocrit 28.4 and platelets 268. Blood gas 7.4, pCO2 of 48 and pO2 102. ASSESSMENT AND PLAN: 1. Acute hypoxic respiratory failure, on ventilator management, Dr. Ramirez. 2. Chronic obstructive pulmonary disease with acute exacerbation with history of heavy nicotine abuse until about a few months ago, stable. 3. Tracheobronchitis, status post bronchoscopy. Bronch culture so far shows no bacterial growth. 4. Adult failure to thrive. Social service consult for possible lifeline obtained. ANJELICA GENAO MD CM:PNTRANS [phone] ANJELICA GENAO MD 06/11/17 1028 interface
--- NOTE | ~2017-06-05 | PR ---
[place], [place] PROGRESS NOTE NAME: ROSEANNE RAMIREZ UNIT #: [id number] ROOM: 523 DOCTOR: INDIA TALAMANTES MD BIRTHDATE: [birth year] DOS: 06/08/2017 PULMONARY FOLLOWUP NOTE SUBJECTIVE: He has been still noted chest congestion and coughing at times. There were no symptoms of chest pain or hemoptysis described. OBJECTIVE: VITAL SIGNS: Shows normal temperature, respiratory rate 20, heart rate 62, blood pressure 114/77. Intake is 1820, output was 1200 mL. Pulse oxygen saturation on 50% Venturi mask with patient noted 94% saturation. HEENT: Examination shows no acute change. NECK: Supple. CARDIOVASCULAR: S1, S2 audible. LUNGS: Basilar crackles was noted. ABDOMEN: Soft and nontender. LABORATORY DATA: CMP this morning, BUN 34, creatinine normal, glucose 125. AST 211, ALT 392. CBC: WBC count normal, hemoglobin 9.4, hematocrit 31.9, platelet count 312,000. Culture of the urine for the patient was noted as Enterococcus from the of this month. Blood culture reported no bacterial growth on 06/05. The chest x-ray that was done for this patient, the results were not available at this time. However, the chest x-ray was noted with worsening of the pulmonary infiltration with possibly associated pleural fluid. IMPRESSION: 1. The patient with acute respiratory failure which were noted somewhat worsening with superimposed, possible congestive heart failure with acute pneumonia from aspiration. 2. Abnormal liver function testing, etiology was unclear. PLAN OF MANAGEMENT: Start the patient on Lasix patient 40 mg IV once a day for the next couple of days. Monitor chest x-ray. Continue the oxygen supplementation with Venturi mask. Use of the BiPAP if necessary. Other supportive plan of management care and treatment. Additional treatment changes might need to be done based on the progression of the illness. [place], [place] PROGRESS NOTE NAME: ROSEANNE RAMIREZ UNIT #: [id number] ROOM: 523 DOCTOR: INDIA TALAMANTES MD BIRTHDATE: [birth year] INDIA GAMEZ MD CM:PNTRANS [id number] INDIA SHAH MD 06/09/17 0810 interface
--- NOTE | ~2017-06-05 | CON ---
[place], [place] REPORT OF CONSULTATION NAME: ROSEANNE RAMIREZ UNIT #: [id number] ROOM: [facility] DOCTOR: JENNIFER HARRIS PRIYA BIRTHDATE: [birth year] DOS: 06/10/2017 REASON FOR CONSULTATION: Right heel wound. HISTORY OF PRESENT ILLNESS: The history was obtained from the chart. The patient is unable to communicate at this time. This is an 86-year-old male who was brought to the hospital from the intermediate. He was admitted for altered mental status and he is being treated for pneumonia and urinary tract infection at this time, ____ consulted for right heel wound. It is unclear how long the patient has had this wound. REVIEW OF SYSTEMS: The patient is unable to have verbal communication at this time. PAST MEDICAL HISTORY: COPD, urinary tract infection, right heel wound, hypertension, DVT, depression, sacral decubitus wound. PAST SURGICAL HISTORY: Right lobar lobectomy, right hip replacement, left hip replacement, bilateral cataracts, cholecystectomy, right knee surgery. SOCIAL HISTORY: Resident of a nursing facility, history of heavy tobacco use that he stopped several years ago. No illicit drug use or alcoholic dependence. MEDICATIONS: Please see MAR for current list of medications. ALLERGIES: SULFA, PENICILLIN, PROZAC, CHLOROMYCETIN. LABORATORY DATA: White count 10.1, hemoglobin 8.9, hematocrit 29.7, platelets 300. PHYSICAL EXAMINATION: VITAL SIGNS: Blood pressure 102/57, pulse ox 97. Lower extremity physical examination: VASCULAR: DP. PT pulses are palpable bilaterally. There is mild pitting edema noted in bilateral extremities. No hair is present to digits bilaterally. There is no ascending erythema, ____ noted to bilateral lower extremities. NEUROLOGIC: Unable to test sensation at this time. MUSCULOSKELETAL: Unable to test muscle strength at this time. The patient does not grimace when palpating right heel. DERMATOLOGIC: There is a full thickness punctate ulceration noted to the posterior aspect of the right heel. The wound does probe down to bone. There is no purulent drainage, no malodor, no fluctuance noted to the posterior heel wound. There is mild periwound erythema noted to the right heel. No ascending cellulitis or lymphangitis noted at this time. Wound does undermine under the skin. ASSESSMENT: 1. 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 2. Sacral decubitus heel ulcer. [place], [place] REPORT OF CONSULTATION NAME: ROSEANNE RAMIREZ UNIT #: [id number] ROOM: [facility] DOCTOR: JENNIFER HARRIS PRIYA BIRTHDATE: [birth year] 3. Sepsis secondary to urinary tract infection and pneumonia. 4. Medical management per ICU. PLAN: 1. The patient is seen and examined. 2. Recommend Bactroban and dry sterile dressing applied to the posterior aspect of the right heel wound. 3. Obtained right heel x-rays. 4. Ordered vascular studies to the right heel. 5. Please keep off protective boots or PRAFO on bilateral heels at all time. 6. We will continue to follow while in-house. REEMA HARRIS DPM CM:CONSTR:REPORT OF CONSULTATION 32 06/10/17 2307 interface
--- NOTE | ~2017-06-05 | PR ---
[place], [place] PROGRESS NOTE NAME: ROSEANNE RAMIREZ UNIT #: [id number] ROOM: [place] [address] DOCTOR: ANJELICA GENAO MD BIRTHDATE: [birth year] DOS: 06/09/2017 SUBJECTIVE: The patient is quite agitated, restless, trying to sit up, wants to go home. Family members all in his room, especially his daughter and son-in-law is also there. PHYSICAL EXAMINATION: GENERAL: Again, he is agitated, confused and pulling at things. VITAL SIGNS: Blood pressure is 113/77, pulse of 96, respirations 20, temperature 97.2. LUNGS: Diminished breath sounds, few scattered rhonchi and wheezes heard. HEART: Regular. ABDOMEN: Soft, scaphoid. EXTREMITIES: Without any edema. Liver scan was negative. Hepatitis profile was negative. LABORATORY DATA: Comprehensive, glucose 90, BUN 32, creatinine 1.17. Electrolytes normal. SGOT is elevated. WBC count is 11.9, hemoglobin 9.5, hematocrit 30.9, platelets 333. ASSESSMENT AND PLAN: 1. The patient admitted with non-ST elevation myocardial infarction. The patient was on low dose beta blockers. Cardiology consultation was obtained and the patient is not a candidate for any interventional procedures. 2. Urinary tract infection with VRE on IV Zyvox. 3. Chronic obstructive pulmonary disease with acute exacerbation, was on IV steroids. This may have made him psychotic and so I have discontinued the IV steroids and placed him on low dose prednisone p.o. and Dr. Ramirez was consulted. 4. 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 Ativan has been started. The patient's overall condition appears to be poor and guarded and I have suggested that family consider hospice care. They agreed, so Social Service will be consulted for that. [place], [place] PROGRESS NOTE NAME: ROSEANNE RAMIREZ UNIT #: [id number] ROOM: [place] [address] DOCTOR: ANJELICA GENAO MD BIRTHDATE: [birth year] ANJELICA GENAO MD CM:PNTRANS [phone] ANJELICA GENAO MD 06/09/17 2008 interface
--- NOTE | ~2017-06-05 | PR ---
[place], [place] PROGRESS NOTE NAME: ROSEANNE RAMIREZ UNIT #: [id number] ROOM: 420 DOCTOR: INDIA TALAMANTES MD BIRTHDATE: [birth year] DOS: 06/21/2017 SUBJECTIVE: He has been noted more awake and alert this morning without any symptoms of chest congestion, coughing, or shortness of breath. Oral intake, the patient noted somewhat better today. OBJECTIVE: VITAL SIGNS: Normal temperature, respiratory rate 18, heart rate 78, blood pressure 112/45 this morning. Pulse oxygen saturation was noted as 99% on venturi mask. HEENT: Examination shows edentulous status. NECK: Supple. CARDIOVASCULAR: S1, S2 audible. LUNGS: Noted without any wheezing. Scattered crackles in the lung bases. ABDOMEN: Soft, nontender. LABORATORY DATA: Urine culture, identified as Gram-positive cocci and Enterococcus faecalis, which are noted penicillin sensitive species. Vancomycin trough level noted 17.1. IMPRESSION: 1. The patient who has been currently noted with stable acute on chronic hypoxic respiratory failure with favorable improvement from the last 24 hours. 2. Urinary tract infection, enterococcus, which is being treated currently with antibiotics, responding to treatment. The patient was noted afebrile. 3. Oropharyngeal dysphagia. PLAN OF MANAGEMENT: Continuation of the antibiotics. The patient was started on Zyvox by Dr. Robyn Quesada and other medications were stopped. Continue oxygen supplementation. Continue the use of BiPAP to stabilize the respiratory status. For the appropriate nutrition support, the patient was still require placement of the PEG tube. Other supportive therapy, plan of management and care. [place], [place] PROGRESS NOTE NAME: ROSEANNE RAMIREZ UNIT #: [id number] ROOM: 420 DOCTOR: INDIA TALAMANTES MD BIRTHDATE: [birth year] INDIA GAMEZ MD CM:PNTRANS 1239 INDIA SHAH MD 06/23/1745 interface
--- NOTE | ~2017-06-05 | CON ---
[place], [place] REPORT OF CONSULTATION NAME: ROSEANNE RAMIREZ UNIT #: [id number] ROOM: [place] [address] DOCTOR: ERIC VILLANUEVA DPM BIRTHDATE: [birth year] DOS: 06/09/2017 There was a consultation request but the patient's family was in the room and the patient was in a lot of pain and distress and the family requested that we come back tomorrow to see the patient. Subsequently, we will try to see the patient again tomorrow. ERIC VILLANUEVA DPM CM:CONSTR:REPORT OF CONSULTATION 1231 06/09/17 2340 interface
--- NOTE | ~2017-06-05 | PR ---
[place], [place] PROGRESS NOTE [id number] UN[facility] #: [id number] ROOM: 420 DOCTOR: FRANCO SHAH MD,INDIA BIRTHDATE: [birth year] DOS: 06/19/2017 SUBJECTIVE: The patient was seen today with [id number] encounter. History was confirmed. The physical exam was performed. All the labs were reviewed. Assessment and management changes for this patient was made for today personally. The note done by the expert medical writer for this patient was approved. The patient has been noted comfortable at this time. He will be getting PEG tube placed for the medical management of nutritional support and dysphagia. Modified barium swallow was completed yesterday. The patient has no signs of respiratory distress at this time. PHYSICAL EXAMINATION: VITAL SIGNS: Essentially were noted within normal limits. The pulse oxygen saturation with 40% Venturi mask 92-95% saturation recorded. LUNGS: Noted without any wheezing or crackles at this time. ABDOMEN: Soft and nontender. EXTREMITIES: Does not show any edema. IMPRESSION: The patient's protein calorie malnutrition status with acute respiratory failure remains persistent with acute aspiration pneumonia and other problem, which have been noted stable at the present time. PLAN OF TREATMENT: The patient will be continued on current plan of management. No changes from the Pulmonary standpoint will be needed. Proceed with the insertion of the PEG tube for the nutrition support for oropharyngeal dysphagia. INDIA GAMEZ MD CM:PNTRANS [id number] INDIA SHAH MD 06/20/17 0035 interface
--- NOTE | ~2017-06-05 | PR ---
[place], [place] PROGRESS NOTE NAME: ROSEANNE RAMIREZ UNIT #: [id number] ROOM: 420 DOCTOR: ANJELICA GENAO MD BIRTHDATE: [birth year] DOS: SUBJECTIVE: The patient is resting comfortably, states that he did not have a good night, but he is able to answer questions appropriately and did not appear to be in any distress. OBJECTIVE: VITAL SIGNS: Graphic trend shows a pressure 127/66, pulse of 81, respirations 20, temperature 98.7. LUNGS: Clear. A few scattered rhonchi. HEART: Regular. ABDOMEN: Soft, scaphoid. Ambrocio catheter in place. The scrotal area looks slightly edematous and also there is some redness in the perianal area and also in between his thighs. LABORATORY DATA: This morning, urine culture shows VRE, no CBC and basic is available today. ASSESSMENT AND PLAN: 1. Adult failure to thrive. banking services officer are still working on placement issues. 2. Aspiration pneumonia, on antibiotics, which seems to be stable right now. 3. VRE of the urine. Add p.o. Zyvox. 4. Candidal intertrigo, for which nystatin cream or Mycolog cream has been ordered. 5. run of nonsustained V-tach during the night. No plans to do any further adjustments in medication. Cardiology is already following. We will check a magnesium level along with his labs. ANJELICA GENAO MD CM:PNTRANS [phone] ANJELICA GENAO MD 06/21/17 2343 interface
--- NOTE | ~2017-06-05 | PR ---
[place], [place] PROGRESS NOTE NAME: ROSEANNE RAMIREZ UNIT #: [id number] ROOM: [facility] DOCTOR: DINORA DAVIS DO BIRTHDATE: [birth year] DOS: 06/10/2017 SUBJECTIVE: The patient was noted to be sleepy at this time. The patient is planned for bronchoscopy this morning. There were no symptoms of any chest pain or hemoptysis. OBJECTIVE: VITAL SIGNS: Temperature 97.9, pulse 52, respiratory rate 13, blood pressure 94/76, pulse ox of 90% on FiO2 of 45. LUNGS: Decreased breath sounds with crackles of lungs bilaterally and scattered expiratory wheezes. CARDIOVASCULAR: S1, S2 audible. ENT: No change. LABORATORY DATA: White cell count 10, hemoglobin 8.9, platelets 300. BUN 32, creatinine 1.19. ASSESSMENT: 1. The patient with change in mental status, sepsis and confusion with agitation. 2. Acute pneumonia. 3. Acute congestive heart failure. 4. Passive congestion likely due to congestive heart failure and abnormal liver function tests. PLAN OF MANAGEMENT: 1. The patient was bronch this morning and the bronchoscopy showed pulmonary infiltrate, mucous plugs, cough. 2. The patient should be continued on current care and management. 3. Supportive therapy and plan of care. 4. Continue DuoNeb, cefepime 2 g IV. DINORA DAVIS DO [place], [place] PROGRESS NOTE NAME: ROSEANNE RAMIREZ UNIT #: [id number] ROOM: [facility] DOCTOR: DINORA DAVIS DO BIRTHDATE: [birth year] INDIA GAMEZ MD CM:YU [id number] DINORA DAVIS DO 06/10/17 1208 interface
[2017-06-05 09:25] VITALS: BP 104/49
[2017-06-05 09:53] LABS: BASO % 0.2 % (0.0-1.0); HEMATOCRIT 33.1 % (42.0-52.0); HEMOGLOBIN 9.8 g/dl (14.0-18.0); LYMPH # 1.2 10*3/uL (1.3-4.4); LYMPH % 12.5 % (27.0-41.0); MEAN CELL VOLUME 80.9 fl (80.0-94.0); MEAN CORPUSCULAR HGB CONC 29.6 g/dl (33.0-37.0); MEAN PLATELET VOLUME 9.2 fl (9.6-12.3); MONO # 0.6 10*3/uL (0.1-1.0); NEUT # 7.4 10*3/uL (2.3-7.9); NEUT % 80.4 % (47.0-73.0); NUCLEATED RED BLOOD CELL 0.1 10*3/uL (0.0-0.0); NUCLEATED RED BLOOD CELL 0.5 % (0.0-0.0); PLATELET COUNT AUTOMATED 442 10*3/uL (130-400); RED BLOOD COUNT 4.09 10*6/uL (4.50-5.90); RED CELL DISTRI WIDTH 18.3 % (0-14.5); WHITE BLOOD COUNT 9.2 10*3/uL (4.8-10.8)
[2017-06-05 10:00] LABS: BILIRUBIN 2+ (NEGATIVE); BLOOD 3+ (NEGATIVE); CLARITY TURBID (CLEAR); COLOR BROWN (YELLOW); GLUCOSE NEGATIVE (NEGATIVE); KETONE TRACE (NEGATIVE); NITRITE POSITIVE (NEGATIVE); PH 5.5 (5.0-9.0); SPECIFIC GRAVITY 1.025 (1.005-1.030)
[2017-06-05 10:07] LABS: ACT PARTIAL THROMBO TIME 27.3 SECONDS (20.8-31.5); INTERNATIONAL NORM RATIO 1.5 (2.0-3.5)
[2017-06-05 10:10] LABS: ALBUMIN 2.1 gm/dl (3.1-4.5); CREATININE 2.74 mg/dL (0.70-1.30); MAGNESIUM 2.7 mg/dL (1.5-2.1); POTASSIUM 5.2 mmol/L (3.5-5.1); TOTAL PROTEIN 6.9 gm/dL (6.4-8.2); VALPROIC ACID (DEPAKENE) 29.6 ug/ml (50-100)
[2017-06-05 10:11] LABS: LEUKO ESTERASE 2+ (NEGATIVE)
[2017-06-05 10:13] LABS: RBC TNTC rbc/hpf (0-2)
[2017-06-05 10:18] LABS: BACTERIA 3+; EPITHELIAL CELLS 20-30; WBC TNTC wbc/hpf (0-5)
[2017-06-05 10:24] LABS: TROPONIN I 0.408 ng/ml (<0.045)
--- NOTE | 2017-06-05 10:25 | NUR ---
[facility] [employer] NOTIFIED [facility].
[2017-06-05 10:33] VITALS: BP 115/77
[2017-06-05 11:16] VITALS: BP 113/62
[2017-06-05 12:00] VITALS: BP 110/64
--- NOTE | 2017-06-05 12:00 | NUR ---
A 86, admitted to , under the services of ANJELICA Fernandez MD with a diagnosis of NSTEMI. PNEUMONIA. SEPSIS. Chief complaint is SOB. Patient arrived via bed from ER. Monitor applied. Initial assessment completed. Vital signs taken and recorded. ANJELICA FERNANDEZ MD notified of admission to the unit. Orders received. See assessment for past medical history, medications and allergies. Patient and/or family oriented to unit. [facility] visitation policy reviewed. Clothing/patient valuable form completed. DALLAS PRAEDES
--- NOTE | 2017-06-05 12:45 | NUR ---
SPOKE WITH DR. GENAO ABOUT THE PATIENT AND UPDATED HER ON THE PATIENTS CONDITION. SHE WAS ALREADY UPDATED ON THE PATIENTS LAB AND REASON FOR COMING TO THE HOSPITAL. THE DR ASKED FOR MULTIPLE ORDERS SEE ORDER HX. THE PATIENT WILL REMAIN NPO UNTIL SEEN AND CLEARED BY SPEECH THERAPY. NO COCNERNS FROM THE DR OR THE PATIENT AT THIS TIME.
--- NOTE | 2017-06-05 13:00 | NUR ---
PATIENT HAS WOUND VAC TO RIGHT HEEL.
--- NOTE | 2017-06-05 13:02 | NUR ---
DR. BOLDEN CALLED AND NICHOLAS FROM [facility] WAS TOLD ABOUT THE PATIENT AND STATED SHE WOULD LET DR. BOLDEN KNOW OF CONSULT. NO COCNERNS AT THIS TIME.
--- NOTE | 2017-06-05 13:44 | NUR ---
DR. BOLDEN CALLED AND NOTIFIED ABOUT TROP LEVEL OF 0.902. THE HAS NO CONCERNS RIGHT NOW. HE STATED THAT DR. ELIAS WOULD BE UP SOON TO ASSESS THE PATIENT.
--- NOTE | 2017-06-05 14:04 | NUR ---
Frances from [facility] stated patient is from their facility and will require a precert to return.
--- NOTE | 2017-06-05 15:25 | NUR ---
SPEECH PATHOLOGY Bedside swallow eval. completed as per orders. Patient is known to this dept. from admission last month. Family members were present during session. For today's assessment patient was alert but [place]. He was sitting upright in bed and able to follow commands, usually with several repetitions required due to hearing impairment. Patient was assessed with puree and thin liquids. He refused to attempt solid food at this time. Upon prior admission he received a regular diet and thin liquid, but only ordered pancakes for all meals. His family reported that at the snf, he continues to only eat pancakes. He displayed no overt difficulty with consistencies taken. Recommend regular diet and thin liquids. Follow up therapy is recommended to ensure safe tolerance. Results and deep. were shared with patient, family members and patient's nurse and they verbalized understanding. Refer to report in redoc for furhter information. Thank you for this referral. KOSTAS AVILES MSCCC-SHINGLE CARRIER
--- NOTE | 2017-06-05 15:34 | NUR ---
DR. GENAO CALLED AND TOLD THAT SPEECH THERAPY STATED THAT THE PATIENT IS CLEAR FOR SLOID FOODS AND THIN LIQUIDS. DR. GENAO ORDERED A REGULAR DIET. NO CONCERNS AT THIS TIME.
[2017-06-05 16:00] VITALS: BP 106/64
--- NOTE | 2017-06-05 16:38 | NUR ---
DR ELIAS NOTIFIED OF ELEVATED TROPONIN LEVEL - NO NEW ORDERS AT THIS TIME
--- NOTE | 2017-06-05 19:33 | NUR ---
Called Dr. Boles's answering service regarding elevated Troponin level. They said they would page him.
--- NOTE | 2017-06-05 19:37 | NUR ---
Dr. Boles called and was notified of elevated Troponin. No new orders were received.
[2017-06-05 20:00] VITALS: BP 95/58
[2017-06-06] VITALS: BP 103/47
[2017-06-06 05:58] LABS: BILIRUBIN NEGATIVE (NEGATIVE); BLOOD 1+ (NEGATIVE); CLARITY SL CLOUDY (CLEAR); COLOR YELLOW (YELLOW); GLUCOSE NEGATIVE (NEGATIVE); KETONE NEGATIVE (NEGATIVE); LEUKO ESTERASE NEGATIVE (NEGATIVE); NITRITE NEGATIVE (NEGATIVE); SPECIFIC GRAVITY >= 1.030 (1.005-1.030); UROBILINOGEN 0.2 E.U./dl (0.2-1.0)
[2017-06-06 06:03] LABS: BASO % 0.2 % (0.0-1.0); EOS # 0.1 10*3/uL (0.0-0.4); HEMATOCRIT 27.9 % (42.0-52.0); HEMOGLOBIN 8.4 g/dl (14.0-18.0); LYMPH # 2.2 10*3/uL (1.3-4.4); LYMPH % 24.3 % (27.0-41.0); MEAN CELL VOLUME 80.9 fl (80.0-94.0); MEAN CORPUSCULAR HGB 24.3 pg (27.0-31.0); MEAN CORPUSCULAR HGB CONC 30.1 g/dl (33.0-37.0); MEAN PLATELET VOLUME 9.6 fl (9.6-12.3); MONO # 0.9 10*3/uL (0.1-1.0); MONO % 9.2 % (3.0-9.0); NEUT # 5.9 10*3/uL (2.3-7.9); NEUT % 64.6 % (47.0-73.0); NUCLEATED RED BLOOD CELL 0.1 10*3/uL (0.0-0.0); NUCLEATED RED BLOOD CELL 0.5 % (0.0-0.0); RED BLOOD COUNT 3.45 10*6/uL (4.50-5.90); RED CELL DISTRI WIDTH 18.3 % (0-14.5); WHITE BLOOD COUNT 9.2 10*3/uL (4.8-10.8)
[2017-06-06 06:04] LABS: PLATELET COUNT AUTOMATED 294 10*3/uL (130-400)
[2017-06-06 06:04] LABS: RBC 21-30 rbc/hpf (0-2)
[2017-06-06 06:05] LABS: BACTERIA 1+; FINE GRANULAR CAST 21-30; HYALINE CAST 21-30
[2017-06-06 06:09] LABS: CREATININE 2.33 mg/dL (0.70-1.30)
[2017-06-06 06:10] LABS: POTASSIUM 4.1 mmol/L (3.5-5.1)
[2017-06-06 06:13] LABS: TROPONIN I 1.09 ng/ml (<0.045)
--- NOTE | 2017-06-06 06:18 | NUR ---
DR. GENAO NOTIFIED OF CRITICAL TROPONIN OF 0.090. CALL PLACED TO DR. BOLDEN.
--- NOTE | 2017-06-06 06:30 | NUR ---
DR. BOLDEN RETURNED CALL. WILL BE IN TODAY TO SEE PATIENT.
[2017-06-06 08:00] VITALS: BP 103/53
--- NOTE | 2017-06-06 09:54 | NUR ---
WOUND CARE NURSE CRISTOBAL ASSESSED PT'S HEEL AND COCCYX WOUNDS AND STATED SHE WILL NOTIFY THE DR OF HER RECOMMENDATIONS.
[2017-06-06 12:00] VITALS: BP 103/57
--- NOTE | 2017-06-06 12:14 | NUR ---
ROSEANNE RAMIREZ [id number] Please refer to the physician's history and physical for past medical history, comorbid conditions, and allergies. Diagnosis: NSTEMI,UTI,PNEUMONIA INVOLVING RT LUNG,SEVERE SEPS Rodney Score: 12,HIGH RISK WOUND DESCRIPTIONS: Location of the wound: Left buttocks Type of wound: stage 2 Thickness: Partial Size: 0.5cm x 0.5cm x 0.1cm Tunneling: none Undermining: none Sinus Tract: none Presence of Exudate: Serous Amount: Light Color: [place] Odor: None Periwound Skin Appearance: Normal Wound edges: approximated Pain (associated with wound): patient denied pain How does patient state this happened? patient unsure how this happened Location of the wound: right heel Type of wound: stage 4 Thickness: Full Size: 0.8cm x 0.8cm x 0.7cm Tunneling: none Undermining: none Sinus Tract: none Presence of Exudate: Serous Amount: Light Color: Yellow Odor: None Periwound Skin Appearance: Normal Wound edges: approximated Pain (associated with wound): patient denies pain at time of assessment How does patient state this happened? patient unsure how this happened Capillary refill <3 seconds Surface the patient is resting on: Isoflex SKIN PREVENTION RECOMMENDATION: 1. Pressure redistribution support surface as appropriate 2. Elevate heels 3. Remove boots/TEDS every shift and reapply 4. Head of bed 30 degrees as tolerated 5. Assess nutrition and hydration 6. Manage moisture 7. Avoid the use of containment devices while in bed 8. Use absorptive products on surfaces limit layers of linens on bed 9. Turn and reposition every 1-2 hours in bed and every 1 hour in chair as tolerated 10. Weight shifts every 15 minutes while up in chair 11. Offloading with pillows or device to keep heels elevated off bed 12. Monitor skin at least every shift 13. Inspect under medical devices twice a day WOUND TREATMENT RECOMMENDATIONS: Right heel sureprep to periwound, therahoney, 4x4, kerlix Left buttocks sureprep, hydrogel, versatel, optifoam corey Spoke with Dr. Quesada and wound orders were obtained.
[2017-06-06 16:00] VITALS: BP 113/60
[2017-06-06 20:00] VITALS: BP 104/57
[2017-06-07] VITALS: BP 160/89
--- NOTE | 2017-06-07 07:43 | NUR ---
IVF'S DC'D PER 'S ORDER.
[2017-06-07 08:00] VITALS: BP 109/60
--- NOTE | 2017-06-07 08:58 | NUR ---
PT SPO2 WAS 65% ON ROOM AIR. PT WILL NOT LEAVE VENTI MASK ON. PT WAS GIVEN AEROSOL TX. SPO2 93% AFTER TX. PLACED PT BACK ON VENTI MASK 50%
--- NOTE | 2017-06-07 11:00 | NUR ---
Pt becoming agitated. insisting on calling his daughter frequently to come get him and take him home. Trying to get out of bed. Dr Quesada made aware and jag ordered.
--- NOTE | 2017-06-07 11:17 | NUR ---
DR GAMEZ IN TO SEE PT.
--- NOTE | 2017-06-07 11:18 | NUR ---
PT MEDICATED WITH HALDOL 1MG PO FOR AGITATION.
[2017-06-07 12:00] VITALS: BP 96/64
--- NOTE | 2017-06-07 12:10 | NUR ---
PT SPO2 74% RA BEFORE TX. PT TOOK VM OFF. AFTER TX SPO2 92%. PT PLACED BACK ON VM 50%. PT WILL NOT LEAVE MASK ON.
[2017-06-07 16:00] VITALS: BP 105/59
[2017-06-07 20:00] VITALS: BP 108/54
--- NOTE | 2017-06-07 22:06 | NUR ---
PATIENT LYING IN BED, CONFUSION NOTED. PATIENT TAKING OXYGEN OFF. FAMILY WAS IN TO VISIT. NO S/S OF DISTRESS. PATIENT ASKING IF ANYONE HAD SEEN HIS FATHER. PATIENT WITH WHEEZES WITH RHONCHI, BENJY PEDAL EDEMA NOTED. VELAZCO CATHETER INTACT AND DRAINING. PATIENT VERY TALKATIVE.
[2017-06-08] VITALS: BP 105/63
--- NOTE | 2017-06-08 02:09 | NUR ---
24 HR chart check completed.
[2017-06-08 04:00] VITALS: BP 105/66
--- NOTE | 2017-06-08 04:26 | NUR ---
PATIENT RESTLESS MOST OF THE NIGHT. PATIENT TAKING OFF OXYGEN SEVERAL TIMES, TAKING OFF THE MONITOR AND PULLING ON THE VELAZCO. PATIENT WANTED STAFF TO GET HIM UP SO HE COULD WALK WITH THE WALKER. ATTEMPT MADE TO GET HIM UP, VERY WEAK.
[2017-06-08 06:17] LABS: ALBUMIN 2.1 gm/dl (3.1-4.5); ALKALINE PHOSPHATASE 84 U/L (45-117); CHLORIDE 105 mmol/L (98-107); CREATININE 1.07 mg/dL (0.70-1.30); POTASSIUM 4.8 mmol/L (3.5-5.1); PREALBUMIN 9 mg/dl (20-40); SGOT/AST 211 IU/L (3-35); SGPT/ALT 392 U/L (12-78); SODIUM 138 mmol/L (136-145); TOTAL PROTEIN 6.3 gm/dL (6.4-8.2)
[2017-06-08 06:20] LABS: HEMATOCRIT 31.9 % (42.0-52.0); HEMOGLOBIN 9.4 g/dl (14.0-18.0); LYMPH # 0.6 10*3/uL (1.3-4.4); LYMPH % 8.8 % (27.0-41.0); MEAN CELL VOLUME 80.8 fl (80.0-94.0); MEAN CORPUSCULAR HGB 23.8 pg (27.0-31.0); MEAN CORPUSCULAR HGB CONC 29.5 g/dl (33.0-37.0); MEAN PLATELET VOLUME 10.1 fl (9.6-12.3); MONO # 0.1 10*3/uL (0.1-1.0); MONO % 2.1 % (3.0-9.0); NEUT # 5.8 10*3/uL (2.3-7.9); NEUT % 88.5 % (47.0-73.0); NUCLEATED RED BLOOD CELL 0.6 % (0.0-0.0); PLATELET COUNT AUTOMATED 312 10*3/uL (130-400); RED BLOOD COUNT 3.95 10*6/uL (4.50-5.90); RED CELL DISTRI WIDTH 18.4 % (0-14.5); WHITE BLOOD COUNT 6.6 10*3/uL (4.8-10.8)
[2017-06-08 06:23] LABS: BUN 34 mg/dl (7-24)
[2017-06-08 08:00] VITALS: BP 126/60
--- NOTE | 2017-06-08 08:51 | NUR ---
MESSAGE LEFT ON DR ÁLVAREZ'S ANSWERING MESSAGE TO MAKE HIM AWARE OF NEW CONSULT ORDER.
--- NOTE | 2017-06-08 08:51 | NUR ---
SPEECH PATHOLOGY Patient was seen for treatment this am. When clinician arrived in patient's room, he was sitting upright in bed completing tray set up for his breakfast. He had removed his oxygen and was coughing continuously. He was given his O2 but at first refused it, stating he was getting ready to eat. It was explained that he could benefit from taking some breaths with it while setting up his tray, then removing it to eat. He was compliant and coughing stopped. He fed himself during breakfast and consumed his usual pancakes, coffee and juice. Excellent intake was displayed. Patient ate slowly and in small bites and sips. He displayed no overt difficulty during the meal. He was educated that if SOB occurs when eating, to take a break from eating, replace his oxygen and wait until his breathing improved before continuing to eat. He verbalized understanding. Reports indicate that he has been showing no difficulty with meals. His WBC has been within normal range and patient has been afebrile. Recommend he remain on present diet of regular food and thin liquid. Recommend discharge from dysphagia therapy at this time as goals have been achieved. Thank you for this referral. KOSTAS AVILES [employer]-ELEMENTARY SCHOOL DIRECTOR
--- NOTE | 2017-06-08 10:00 | NUR ---
PT HOLLERING OUT, INSISTING ON BEING PUT IN HIS ROOM DESPITE FREQUENT REORIENTATION BY STAFF. AGITATED, VERBALLY ABUSE TO STAFF. DR GENAO MADE AWARE AND HALDOL 2MG IM ORDERED.
--- NOTE | 2017-06-08 11:53 | NUR ---
I NOTIFIED DR GENAO OF PT'S CONTINUED AGITATION AND RESTLESSNESS DESPITE HALDOL GIVEN. ORDER FOR ATIVAN 1MG IV RECEIVED.
--- NOTE | 2017-06-08 11:57 | NUR ---
PHYSICAL THERAPY PAtient very aggitated. Has been medicated but continues to be extremely aggitated. Refuses PT this date. will attempt at later date. Thank you for this referral. Saloni Peña,PT
[2017-06-08 12:00] VITALS: BP 114/77
--- NOTE | 2017-06-08 12:08 | NUR ---
Occupational Therapy evaluation offered this date with daughter present. Patient was given haldol this am d/t agitation with no decrease in symptoms per nurse. Patient was agitated and did not want therapy evaluation this date. OTR explained that an insurance precert was indicated before he could return to SNF and that therapy evaluations were part of this process. Patient was not acceptable of therapy at this time. OTRwill attempt at a later date. Thank you for this referral. Amna Sosa OTR/L
--- NOTE | 2017-06-08 12:54 | NUR ---
PT SLEEPING SINCE BEING MEDICATED WITH ATIVAN FOR AGITATION AND RESTLESSNESS.
--- NOTE | 2017-06-08 13:43 | NUR ---
patient not available for echo. he is off the floor for other testing.
--- NOTE | 2017-06-08 14:18 | NUR ---
ROSEANNE RAMIREZ [id number] Please refer to the physician's history and physical for past medical history, comorbid conditions, and allergies. Diagnosis: NSTEMI,UTI,PNEUMONIA INVOLVING RT LUNG,SEVERE SEPS Rodney Score: 12,HIGH RISK WOUND DESCRIPTIONS: Location of the wound: right heel Type of wound: unstagable Thickness: Full Size: 0.5cm x 1.0cm x 1.0cm Tunneling: none Undermining: none Sinus Tract: none Presence of Exudate: Purulent Amount: Light Color: Yellow Odor: None Periwound Skin Appearance: Macerated Wound edges: epibole Pain (associated with wound): none at time of assessment How does patient state this happened? daughter stated had since hip surgery but area is improving Location of the wound: left buttocks Type of wound: stage 2 Thickness: Partial Size: 0.5cm x 0.5cm x 0.1cm Tunneling: none Undermining: none Sinus Tract: none Presence of Exudate: serosanguineous Amount: Light Color: Red Odor: None Periwound Skin Appearance: Normal Wound edges: approximated Pain (associated with wound): none at time of assessment How does patient state this happened? pt daughter stated improving had since hip surgery Surface the patient is resting on: Isoflex SKIN PREVENTION RECOMMENDATION: 1. Pressure redistribution support surface as appropriate 2. Elevate heels 3. Remove boots/TEDS every shift and reapply 4. Head of bed 30 degrees as tolerated 5. Assess nutrition and hydration 6. Manage moisture 7. Avoid the use of containment devices while in bed 8. Use absorptive products on surfaces limit layers of linens on bed 9. Turn and reposition every 1-2 hours in bed and every 1 hour in chair as tolerated 10. Weight shifts every 15 minutes while up in chair 11. Offloading with pillows or device to keep heels elevated off bed 12. Monitor skin at least every shift 13. Inspect under medical devices twice a day WOUND TREATMENT RECOMMENDATIONS: Consult podiatry for possible debridement of right heel.
--- NOTE | 2017-06-08 15:04 | NUR ---
PT RETURNED FROM NUCLEAR MED LIVER SCAN AND IS AGAIN HIGHLY AGITATED AND RESTLESS. DR GENAO WAS NOTIFIED. ORDER TO DC SOLUMEDROL AND START PREDNISONE AND PRN ATIVAN ORDER RECEIVED.
--- NOTE | 2017-06-08 15:28 | NUR ---
PT MEDICATED WITH ATIVAN 0.5MG IV FOR SEVERE RESTLESSNESS AND AGITATION.
--- NOTE | 2017-06-08 15:42 | NUR ---
MESSAGE LEFT WITH CIELO AT DR VILLANUEVA OFFICE. [employer] FAXED TO THEM PER HER REQUEST.
[2017-06-08 16:00] VITALS: BP 144/66
--- NOTE | 2017-06-08 17:52 | NUR ---
PT HAS SLEPT SINCE BEING MEDICATED WITH ATIVAN BUT HAS WOKEN UP JUST RESTLESS. NO ANSWERING APPROPRIATLY. PULLING AT BLANKETS AND MONITOR CONSTANTLY. PT CONTINUES TO NEED FREQUENT MONITORING BECAUSE HE KEEPS REMOVING HIS O2 MASK.
--- NOTE | 2017-06-08 18:13 | NUR ---
PT REMAINS RESTLESS, REACHING OUT NOT FOLLOWING COMMANDS. DAUGHTER IN LAW AT BEDSIDE AND MADE AWARE OF HIS POOR CONDITION. SHE STATED SHE WILL NOTIFY PT'S SON. I SPOKE WITH DR GENAO AND MADE HER AWARE OF PT'S CONDITION.
--- NOTE | 2017-06-08 18:24 | NUR ---
PT'S SON SPARKLE WHO IS HIS POA IN TO SEE PT AND MADE AWARE OF PT'S CONDITION CHANGE TODAY. STATED HE WILL SPEAK WITH THE REST OF THE FAMILY. PT IS RESTING MORE PEACEFULLY AT THIS TIME AND NOT FLAILING AROUND.
[2017-06-09] VITALS (18 sets, daily range): BP systolic 90–128; BP diastolic 50–83
[2017-06-09 06:10] LABS: HEPATITIS B SURFACE AG Negative (Negative); HEPATITIS C VIRUS ANTIBODY <0.1 s/co (0.0-0.9)
--- NOTE | 2017-06-09 06:38 | NUR ---
PATIENT PULLED VELAZCO CATHETER OUT EARLIER IN SHIFT WITH MASSIVE AMOUNT OF BLOOD IN SHEETS. WAITED A COUPLE HOURS FOR BLEEDING TO STOP AND REINSERTED NEW VELAZCO CATH WITHOUT DIFFICULTY. BRIGHT RED BLEEDING DRAINING AT THIS TIME. PATIENT TOLERATED PROCEDURE WELL. NO SIGNS OR SYMPTOMS OF DISTRESS. WILL CONTINUE TO [facility]. DR. TRUJILLO NOTIFIED OF PATIENT PULLING HIS VELAZCO OUT. CALL LIGHT IN REACH.
[2017-06-09 07:23] LABS: HEMATOCRIT 30.9 % (42.0-52.0); HEMOGLOBIN 9.5 g/dl (14.0-18.0); MEAN CELL VOLUME 79.2 fl (80.0-94.0); MEAN CORPUSCULAR HGB 24.4 pg (27.0-31.0); MEAN CORPUSCULAR HGB CONC 30.7 g/dl (33.0-37.0); MEAN PLATELET VOLUME 8.9 fl (9.6-12.3); NUCLEATED RED BLOOD CELL 0.1 10*3/uL (0.0-0.0); NUCLEATED RED BLOOD CELL 1.2 % (0.0-0.0); PLATELET COUNT AUTOMATED 333 10*3/uL (130-400); RED CELL DISTRI WIDTH 18.3 % (0-14.5); WHITE BLOOD COUNT 11.9 10*3/uL (4.8-10.8)
[2017-06-09 07:38] LABS: ALBUMIN 2.2 gm/dl (3.1-4.5); ALKALINE PHOSPHATASE 84 U/L (45-117); BUN 32 mg/dl (7-24); CHLORIDE 102 mmol/L (98-107); CREATININE 1.17 mg/dL (0.70-1.30); POTASSIUM 4.1 mmol/L (3.5-5.1); SGOT/AST 129 IU/L (3-35); SGPT/ALT 330 U/L (12-78); SODIUM 139 mmol/L (136-145); TOTAL PROTEIN 6.8 gm/dL (6.4-8.2)
[2017-06-09 07:44] LABS: PLATELET SUFFICIENCY NORMAL (NORMAL); POLYCHROMASIA SLIGHT; TOTAL CELLS COUNTED 100 #CELLS
--- NOTE | 2017-06-09 08:30 | NUR ---
Received order for Hospice, Dr Quesada stated family would like to take patient home under hospice care, they can provide 24 hour care. Called daughter Maryam and offered a list of agencies. She asked if she could have time to discuss this with her brother Alvaro who is HPOA. She stated she will call back later today.
--- NOTE | 2017-06-09 08:47 | NUR ---
PHYSICAL THERAPY Possible hopsice consult. Awaiting outcome. Saloni Lugo,PT
--- NOTE | 2017-06-09 09:22 | NUR ---
AT 0738 FAMILY REFUSED [place] TX FOR PT
--- NOTE | 2017-06-09 09:30 | NUR ---
PATIENT PULLING AT VELAZCO CATHETER, CAUSING BLEEDING AROUND URETHRA AND INCREASED HEMATURIA TO VELAZCO DRAINAGE, ALSO PULLING AT MONITOR AND GOWN, ALSO AT IV AND VENTURI MASK. FAMILY REQUESTING SOFT WRIST RESTRAINTS. ORDER OBTAINED FOR BILATERAL SOFT WRIST RESTRAINTS AND APPLIED. HE C/O GENERALIZED PAIN, ALSO OBTAINED ORDER FOR PRN IV MORPHINE.
--- NOTE | 2017-06-09 10:15 | NUR ---
MEDICATED WITH PRN IV MORPHINE FOR C/O ALL OVER BODY PAIN.
--- NOTE | 2017-06-09 11:17 | NUR ---
PRN IV MORPHINE NOT EFFECTIVE FOR PAIN, PER PATIENT. HE IS C/O GENERALIZED PAIN AND ESPECIALLY PAIN TO PENIS AREA D/T PULLING AT CATHETER EARLIER THIS AM. URETHRA IS LEAKING BLOOD AROUND VELAZCO ENTRANCE, CONTINUES TO DRAIN DARK BLOODY URINE TO DRAINAGE BAG ALSO. PHONED DR. GENAO FOR ORDER FOR FENTANYL PATCH 12MCG AND LIDOCAINE JELLY TO APPLY TO URETHRAL AREA.
--- NOTE | 2017-06-09 12:00 | NUR ---
APPLIED DURAGESIC PATCH ORDERED, APPLIED LIDOCAINE JELLY TO URETHRA FOR PENILE PAIN, ALSO MEDICATED WITH PRN IV ATIVAN FOR AGITATION.
--- NOTE | 2017-06-09 12:41 | NUR ---
PATIENT CALM AT THIS TIME WITH MULTIPLE FAMILY MEMBERS AT BEDSIDE. PRN IV ATIVAN EFFECTIVE.
--- NOTE | 2017-06-09 13:30 | NUR ---
FAMILY TALKING WITH Mark GASTON WHO IS ALSO FAMILY AND DISCUSSING BEST PLAN OF CARE D/T POX 80% ON THE 50% VENTURI MASK, BILATERAL LEGS SWELLING NOTED TO BE INCREASED, AND HEMATURIA WITH CLOTS WITH DECREASED OUTPUT ALSO NOTED. ORDER WAS OBTAINED TO IRRIGATE VELAZCO CATHETER TO REMOVE ANY OCCLUSIONS OF TUBING BY CLOTS, BUT NO ADDITIONAL URINE OUTPUT WAS NOTED AFTER IRRIGATION. FAMILY CALLED PATIENT'S POA (SON) WHO IS NOT PRESENT AND DISCUSSED OPTIONS FOR THE PATIENT. FAMILY AGREED THAT EVERYTHING POSSIBLE SHOULD BE DONE FOR THIS PATIENT. PHONED DR. GENAO AND LEFT MESSAGE ON CELL PHONE. PER DR. Elisabeth GASTON RAPID RESPONSE SHOULD BE INITIATED SO THAT PATIENT CAN BE MOVED TO ICU IN MORE TIMELY MANNER. RAPID RESPONSE CALLED, ICU BED OBTAINED.
--- NOTE | 2017-06-09 13:30 | NUR ---
In to patients room to meet with family members, multiple family at bedside. Discussed possible hospice with Maryam, patients daughter. She stated they have just made the decision to move patient to ICCU, and if the doctor tells us after that there is nothing more that can be done, we will discuss hospice. Left room and a few minutes later rapid response was called. will follow.
--- NOTE | 2017-06-09 13:39 | NUR ---
RECEIVED FROM 5E AFTER RAPID RESPONSE. MOIST RESP 92% ON 50% VENTURI. RR 17-20. SINUS 98. CATHETER BLOODY URINE. HEEL RAISERS ON BILAT.
--- NOTE | 2017-06-09 13:45 | NUR ---
PATIENT TRANSFERRED TO ICCU, REPORT GIVEN TO RECEIVING RN. FAMILY IS IN LOBBY, ICU NURSE SPEAKING WITH DR. GENAO, RESIDENTS CLARIFYING POA AND CODE STATUS D/T MOST RECENT DOCUMENT IS DNRCCA WITH NO POA PAPERS ON FILE OF YET. FAMILY DOES AGREE ON LIFE-SAVING MEASURES, DR. GENAO MADE AWARE OF CHANGES TO STATUS.
--- NOTE | 2017-06-09 13:50 | NUR ---
RECEIVED PT FROM VIA BED. PT AWAKE BUT NONVERBAL AT THIS TIME. PT ON 50% VENTURI POX 92%. RHONCHI NOTED IN LUNG SCHMITZ. PT IS NSR IN 70-80'S. 128/83 IS HIS BP. ABD. SOFT WITH ACTIVE BOWEL SOUNDS. LARGE AMOUNT OF BLOOD NOTED IN VELAZCO CATH. CODE STATUS IS BIENG CLARIFIED WITH PT'S FAMILY.
--- NOTE | 2017-06-09 13:57 | NUR ---
SPOKE WITH THE SON SPARKLE RAMIREZ VIA PHONE WHO IS THE MEDICAL POWER OF [employer]ER WITH YIFAN GUERRERO AT MY SIDE. REST OF THE FAMILY PRESENT AND LISTENING TO THE CONVERSATION INCLUDING THE DAUGHTER VERA. TOLD HIM THAT THE PATIENT & HIMSELF SIGNED A DNRCCA NO INTUBATION PAPER IN NOVEMBER 2016. REPEATED THAT THIS WAS HIS FATHER'S REQUEST AND WE KNOW UNDERSTAND THAT HE (SPARKLE) IS WANTING TO OVERRIDE AND DO EVERYTHING INCLUDING INTUBATING THE PATIENT. HE SAID YES THAT THIS WAS CORRECT. THIS NURSE REPEATED THAT HE WANTED US TO PUT THE PATIENT ON A VENTILATOR, LIFE SUPPORT AND HE SAID YES THEN SAID BUT NO PUSHING ON HIS CHEST TO BREAK HIS RIBS. NURSE THEN SAID, "YOU DO NOT WANT CPR?" AND SPARKLE RESPONDED CORRECT. NURSE THEN ASKED DO YOU WANT US TO SHOCK HIM IF HIS HEART GOES INTO A CRAZY RHYTHM AND SPARKLE SAID NO. NURSE THEN SAID BUT YOU WANT ME TO INTUBATE HIM AND PUT HIM ON A VENTILATOR AND HE SAID YES. THEN NURSE THEN REPEATED THIS ENTIRE CONVERSATION SAYING YOU DO NOT WANT CPR, RESPONSE NO, YOU DO NOT WANT US TO SHOCK HIM & RESPONSE WAS NO BUT YOU WANT INTUBATION AND HE SAID YES. SPARKLE WAS THEN ASKED IF MEDICATIONS TO HELP WITH THE BLOD PRESSURE WERE OK &E AGREED. THEN THE NURSE SAID ITS OK TO GIVE MEDS AND HE RESPONDED YES. NURSE THEN TOLD HIME THAT HIS FATHER WOULD MOST LIKELY BE ON THE VENTILATOR BY THE TIME HE GOT HERE HOWEVER WE COULD NOT TELL HIM FOR HOW LONG OR WHAT THE OUTCOME WOULD BE AND HE VOICED UNDERSTANDING. REST OF THE FAMILY OVER HEARD THE CONVERSATION. ANESTHESIA WAS CALLED TO INTUBATE. DR GENAO WAS CALLED BY YIFAN GUERRERO & VASYL MAGALLON WAS CALLED BY YIFAN GUERRERO AND UPDATED ON THE SITUATION.
[2017-06-09 14:09] LABS: HEMATOCRIT 32.3 % (42.0-52.0); HEMOGLOBIN 9.9 g/dl (14.0-18.0); MEAN CORPUSCULAR HGB 24.2 pg (27.0-31.0); MEAN CORPUSCULAR HGB CONC 30.7 g/dl (33.0-37.0); MEAN PLATELET VOLUME 9.6 fl (9.6-12.3); NUCLEATED RED BLOOD CELL 0.4 10*3/uL (0.0-0.0); NUCLEATED RED BLOOD CELL 2.8 % (0.0-0.0); PLATELET COUNT AUTOMATED 406 10*3/uL (130-400); RED BLOOD COUNT 4.09 10*6/uL (4.50-5.90); RED CELL DISTRI WIDTH 18.4 % (0-14.5); WHITE BLOOD COUNT 15.6 10*3/uL (4.8-10.8)
--- NOTE | 2017-06-09 14:15 | NUR ---
Emergent intubation. Patient intubated with 8 Pashto endotracheal tube orally X 1 attempts. Patient sedated with ETAMIDATE AND SUCCYCHOLINE Respiratory therapy at bedside. Crash cart with emergency drugs available. Endotracheal tube inflated with 10cc's. Lungs auscultated for equality of breath sounds. Tube secured with Tube tamer at 26cm's. at level of LIP. Patient tolerated procedure FAIR. Portable chest X-ray obtained and reviewed for tube placement. Patient connected to ventilator CMV mode 12, 550 tidal volume, 50 FIO2, 5 PEEP, and 0 pressure support. Ogt inserted per hosp. policy prior to cxr. MAIN CEJA
[2017-06-09 14:23] LABS: ALBUMIN 2.4 gm/dl (3.1-4.5); ALKALINE PHOSPHATASE 84 U/L (45-117); BUN 30 mg/dl (7-24); CHLORIDE 102 mmol/L (98-107); CREATININE 1.22 mg/dL (0.70-1.30); MAGNESIUM 2.3 mg/dL (1.5-2.1); POTASSIUM 4.8 mmol/L (3.5-5.1); SGOT/AST 121 IU/L (3-35); SGPT/ALT 323 U/L (12-78); SODIUM 139 mmol/L (136-145); TOTAL PROTEIN 7.1 gm/dL (6.4-8.2)
[2017-06-09 14:30] LABS: TOTAL CELLS COUNTED 100 #CELLS
[2017-06-09 14:33] LABS: PLATELET SUFFICIENCY HIGH (NORMAL); POLYCHROMASIA SLIGHT; TARGET CELLS FEW
[2017-06-09 15:37] LABS: ABG BASE EXCESS 4.9 mmol/L (-2.0-2.0); ABG HCO3 30.8 mmol/l (22-26); ABG O2 SATURATION 96.2 % (95-97); ARTERIAL BLOOD GAS PCO2 53.8 mmHg (35-45); ARTERIAL BLOOD GAS PH 7.371 (7.35-7.45); ARTERIAL BLOOD GAS PO2 78.2 mmHg (80-90)
--- NOTE | 2017-06-09 16:17 | NUR ---
DR. GENAO UPDATED ON STATUS OF PATIENT AND LABS.
--- NOTE | 2017-06-09 16:41 | NUR ---
DR. GAMEZ CALLED AND WANTED ENDOTUBE TO 26 AT THE LIP.
--- NOTE | 2017-06-09 16:52 | NUR ---
PHYSICAL THERAPY PAtient now intubated in ICCU, will require new PT orders when medically appopriate, Thank you. lucia Lugo,PT
--- NOTE | 2017-06-09 19:50 | NUR ---
PT. RESTLESS. DIPROVAN INCREASED FROM 20MICS TO 30MICS VIA RH, SITE ASYMPT. HEP LOCK IN LA ALSO ASYMPT. LUNGS CLEAR BILAT, PULSE OX 97% ON 50% FIO2. KRAIG HOSE ON LEFT LOWER LEG AND DRESSING NOTED TO RIGHT FOOT (INTACT) NOTED. ABDOMEN SOFT, NONDISTENDED AND NORMO. VELAZCO DRAINING A BRIGHT RED DRAINAGE WITH CLOTS NOTED. PT. GIVEN ORAL MOUTH CARE AND SUCTIONED ORALLY AND VIA ENDO FOR LARGE AMT ORAL SECRETIONS AND SCANT AMT OF BLOOD TINGED MUCOUS VIA ENDO. SOFT WRIST RESTRAINTS BILAT TO PREVENT ACCIDENTAL SELF-EXTUBATION. ISOLATION MAINTAINED. RESTING COMFORTABLY ON 30MICS OF DIPROVAN CURRENTLY. OGT PLACEMENT CONFIRMED WITH AIR BOLUS. JERRY SINGLETARY RN
--- NOTE | 2017-06-09 23:33 | NUR ---
PT'S DIPROVAN DECREASED TO 20 MICS DUE TO HYPOTENSION, B/P 105/65. JERRY SINGLETARY RN
[2017-06-10] VITALS (12 sets, daily range): BP systolic 85–125; BP diastolic 49–76
[2017-06-10 04:49] LABS: HEMATOCRIT 29.7 % (42.0-52.0); HEMOGLOBIN 8.9 g/dl (14.0-18.0); MEAN CORPUSCULAR HGB 23.4 pg (27.0-31.0); MEAN PLATELET VOLUME 9.1 fl (9.6-12.3); NUCLEATED RED BLOOD CELL 0.1 10*3/uL (0.0-0.0); NUCLEATED RED BLOOD CELL 1.1 % (0.0-0.0); PLATELET COUNT AUTOMATED 300 10*3/uL (130-400); RED BLOOD COUNT 3.81 10*6/uL (4.50-5.90); RED CELL DISTRI WIDTH 18.4 % (0-14.5); WHITE BLOOD COUNT 10.1 10*3/uL (4.8-10.8)
[2017-06-10 05:05] LABS: ALBUMIN 1.9 gm/dl (3.1-4.5); ALKALINE PHOSPHATASE 70 U/L (45-117); BUN 32 mg/dl (7-24); CHLORIDE 101 mmol/L (98-107); CREATININE 1.19 mg/dL (0.70-1.30); POTASSIUM 4.2 mmol/L (3.5-5.1); SGOT/AST 73 IU/L (3-35); SGPT/ALT 222 U/L (12-78); SODIUM 140 mmol/L (136-145); TOTAL PROTEIN 5.6 gm/dL (6.4-8.2)
[2017-06-10 05:13] LABS: OVALOCYTES FEW; PLATELET SUFFICIENCY NORMAL (NORMAL); TOTAL CELLS COUNTED 100 #CELLS
[2017-06-10 05:30] LABS: ABG BASE EXCESS 6.9 mmol/L (-2.0-2.0); ABG HCO3 31.4 mmol/l (22-26); ABG O2 SATURATION 95.6 % (95-97); ARTERIAL BLOOD GAS PCO2 45.7 mmHg (35-45); ARTERIAL BLOOD GAS PH 7.449 (7.35-7.45); ARTERIAL BLOOD GAS PO2 70.8 mmHg (80-90)
--- NOTE | 2017-06-10 07:30 | NUR ---
DR GENAO IN TO SEE PT.
--- NOTE | 2017-06-10 08:00 | NUR ---
PT REMAINS INTUBATED AND SEDATED. VSS. POX 92-95% ON 40% FIO2. OGT PLACEMENT VERIFIED WITH AN AIR BOLUS. ABD.SOFT WITH ACTIVE BOWEL SOUNDS. VELAZCO CATH PATENT FOR BLOODY URINE. PT FOR BEDSIDE BRONCH THIS AM BY DR GAMEZ.
--- NOTE | 2017-06-10 08:09 | NUR ---
DR GENAO IN TO SEE PT. NEW ORDERS RECEIVED.
--- NOTE | 2017-06-10 08:32 | NUR ---
Nutritional Support Services Note: Pt is on a vent. NPO status at this time. Will follow for advancement of po intake. Anna Guevara
--- NOTE | 2017-06-10 09:10 | NUR ---
DR GAMEZ IN TO SEE PT. BEDSIDE BRONCHOSCOPY COMPLETED. SPECIMAN SENT TO LAB. PT TOLERATED PROCEDURE WELL.
--- NOTE | 2017-06-10 09:40 | NUR ---
RESP. THERAPY INCREASED FIO2 TO 45% AFTER BRONCH R/T POX 90%.
--- NOTE | 2017-06-10 16:30 | NUR ---
UPDATED DR GENAO ON PT'S CONTINUED BLEEDING FROM PENIS. BLADDER IRRIGATION ORDERED.
--- NOTE | 2017-06-10 17:00 | NUR ---
#20 [place] 3-WAY VELAZCO INSERTED WITHOUT DIFFICULTY AFTER OTHER VELAZCO D/C'D. NORMAL SALINE CBI STARTED. URINE RETURNIONG TO VELAZCO IS DARK BROWN. PT TOLERATED PROCEDURE WELL.
--- NOTE | 2017-06-10 20:00 | NUR ---
PATIENT NOTED TO HAVE NO DISTRESS. INTUBATED/SEDATED.
--- NOTE | 2017-06-10 23:04 | NUR ---
BLADDER IRRIGATION, DARK URINE/BLOOD CLOTS. SMALL AMOUNTS OF BLOOD STILL SEEP FROM PENIS.
[2017-06-11] VITALS (12 sets, daily range): BP systolic 84–103; BP diastolic 46–59
[2017-06-11 05:14] LABS: BASO % 0.1 % (0.0-1.0); EOS # 0.5 10*3/uL (0.0-0.4); EOS % 5.2 % (1.0-4.0); HEMATOCRIT 28.4 % (42.0-52.0); HEMOGLOBIN 8.7 g/dl (14.0-18.0); LYMPH # 2.1 10*3/uL (1.3-4.4); LYMPH % 23.2 % (27.0-41.0); MEAN CELL VOLUME 77.8 fl (80.0-94.0); MEAN CORPUSCULAR HGB 23.8 pg (27.0-31.0); MEAN CORPUSCULAR HGB CONC 30.6 g/dl (33.0-37.0); MEAN PLATELET VOLUME 9.3 fl (9.6-12.3); MONO # 0.7 10*3/uL (0.1-1.0); MONO % 7.6 % (3.0-9.0); NEUT # 5.8 10*3/uL (2.3-7.9); NEUT % 63.1 % (47.0-73.0); NUCLEATED RED BLOOD CELL 0.1 10*3/uL (0.0-0.0); NUCLEATED RED BLOOD CELL 0.8 % (0.0-0.0); PLATELET COUNT AUTOMATED 268 10*3/uL (130-400); RED BLOOD COUNT 3.65 10*6/uL (4.50-5.90); RED CELL DISTRI WIDTH 18.4 % (0-14.5); WHITE BLOOD COUNT 9.2 10*3/uL (4.8-10.8)
[2017-06-11 05:20] LABS: ABG BASE EXCESS 6.9 mmol/L (-2.0-2.0); ABG HCO3 31.8 mmol/l (22-26); ABG O2 SATURATION 98.5 % (95-97); ARTERIAL BLOOD GAS PCO2 48.2 mmHg (35-45); ARTERIAL BLOOD GAS PH 7.432 (7.35-7.45)
[2017-06-11 05:33] LABS: ALBUMIN 1.7 gm/dl (3.1-4.5); ALKALINE PHOSPHATASE 63 U/L (45-117); BUN 36 mg/dl (7-24); CHLORIDE 104 mmol/L (98-107); CREATININE 1.28 mg/dL (0.70-1.30); POTASSIUM 4.3 mmol/L (3.5-5.1); PREALBUMIN 12 mg/dl (20-40); SGOT/AST 44 IU/L (3-35); SGPT/ALT 160 U/L (12-78); SODIUM 142 mmol/L (136-145)
--- NOTE | 2017-06-11 08:00 | NUR ---
PT REMAINS INTUBATED AND SEDATED. PT DOES ASSIST VENT ON OCCASION. LUNG SCHMITZ DIM. BUT CLEAR. POX 100% ON 45% FIO2. WILL ASK RESP. TO TITRATE. SUCTIONING SMALL AMOUNT OF YELLOW NUCUS. SBP REMAINS MID 80'S TO LOW 100'S. OGT PLACEMENT VERIFIED WITH AN AIR BOLUS. TUBE FEEDINGS INFUSING AT 30CC/HR. NO RESIDUAL NOTED AT PRESENT TIME. WILL INCREASE TF TO 40CC/HR. ABD. SOFT WITH ACTIVE BOWEL SOUNDS. CBI CONTINUES. VELAZCO PATENT FOR LIGHT BLOOD TINGED URINE. TRACE PEDAL ANKLE EDEMA NOTED. DSG TO RIGHT HEEL AND LEFT BUTTOCKS INTACT. BED REMIANS ON ROTAITON MODE FOR PRESSURE ULCER PREVENTION.
--- NOTE | 2017-06-11 08:36 | NUR ---
RESP. TITRATED FIO2 TO 40% FOR POX 100%.
--- NOTE | 2017-06-11 08:47 | NUR ---
COREG HELD FOR LOW BP OF 85-92 SYSTOLIC.
--- NOTE | 2017-06-11 08:55 | NUR ---
DR GAMEZ IN TO SEE PT. SEDATION SHUT OFF TO ASSES PT'S MENTATION.
--- NOTE | 2017-06-11 09:35 | NUR ---
PT AWAKE AND ABLE TO FOLLOW SIMPLE COMMANDS. DR GAMEZ NOTIFIED. HE ORDERED TO RESUME LIGHT SEDATION.
--- NOTE | 2017-06-11 10:41 | NUR ---
DR GENAO NOTIFIED OF PT'S RECTAL TEMP. OF 95.2. NEW ORDERS RECEIVED.
[2017-06-11 17:07] LABS: ACID FAST SMEAR Negative (.); ACID FAST SPEC PROCESSING Concentration (.)
[2017-06-12] VITALS (12 sets, daily range): BP systolic 91–117; BP diastolic 44–56
--- NOTE | 2017-06-12 | NUR ---
PATIENT SHOWING NO SIGNS OF DISTRESS. WILL CONTINUE TO MONITOR.
[2017-06-12 05:19] LABS: ABG BASE EXCESS 7.3 mmol/L (-2.0-2.0); ABG HCO3 32.5 mmol/l (22-26); ABG O2 SATURATION 96.6 % (95-97); ARTERIAL BLOOD GAS PCO2 51.3 mmHg (35-45); ARTERIAL BLOOD GAS PH 7.415 (7.35-7.45); ARTERIAL BLOOD GAS PO2 80.3 mmHg (80-90)
[2017-06-12 05:37] LABS: BASO % 0.1 % (0.0-1.0); EOS # 0.5 10*3/uL (0.0-0.4); EOS % 5.1 % (1.0-4.0); HEMATOCRIT 28.4 % (42.0-52.0); HEMOGLOBIN 8.7 g/dl (14.0-18.0); LYMPH # 2.2 10*3/uL (1.3-4.4); LYMPH % 24.9 % (27.0-41.0); MEAN CELL VOLUME 77.4 fl (80.0-94.0); MEAN CORPUSCULAR HGB 23.7 pg (27.0-31.0); MEAN CORPUSCULAR HGB CONC 30.6 g/dl (33.0-37.0); MEAN PLATELET VOLUME 8.9 fl (9.6-12.3); MONO # 0.6 10*3/uL (0.1-1.0); MONO % 6.9 % (3.0-9.0); NEUT # 5.5 10*3/uL (2.3-7.9); NEUT % 62.3 % (47.0-73.0); NUCLEATED RED BLOOD CELL 0.3 % (0.0-0.0); PLATELET COUNT AUTOMATED 246 10*3/uL (130-400); RED BLOOD COUNT 3.67 10*6/uL (4.50-5.90); RED CELL DISTRI WIDTH 18.3 % (0-14.5); WHITE BLOOD COUNT 8.8 10*3/uL (4.8-10.8)
[2017-06-12 05:48] LABS: ALBUMIN 1.6 gm/dl (3.1-4.5); ALKALINE PHOSPHATASE 65 U/L (45-117); BUN 29 mg/dl (7-24); CHLORIDE 105 mmol/L (98-107); CREATININE 0.94 mg/dL (0.70-1.30); POTASSIUM 4.2 mmol/L (3.5-5.1); SGOT/AST 29 IU/L (3-35); SGPT/ALT 127 U/L (12-78); SODIUM 142 mmol/L (136-145); TOTAL PROTEIN 5.2 gm/dL (6.4-8.2)
--- NOTE | 2017-06-12 07:53 | NUR ---
Patient referred to [facility], waiting on acceptance/precert
--- NOTE | 2017-06-12 08:05 | NUR ---
Shift chart check completed.24 HR chart check completed.
--- NOTE | 2017-06-12 09:14 | NUR ---
ON ASSESSMENT PATIENT IS ADEQUATELY SEDATED ON DIPRIVAN AT 20MCG/KG/MIN. WHEN RESTRAINTS RELEASED HE IMMEDIATELY REACHES FOR THE ETT. HE REMAINS ORALLY INTUBATED WITH SIZE 8 ETT, 24 AT HIS LIP, THE TUBE NETTIELV KARYNNAREN IS AT THE 22 JOVI. VELAZCO WITH CBI AT VERY SLOW INFUSION RATE. DRAINING CLEAR, YELLOW URINE. HEEL RISER BOOTS IN PLACE. BED IN LOCKED POSITION WITH BED IN ROTATION MODE. SEE ALL APPROPRIATE INTERVENTIONS.
--- NOTE | 2017-06-12 10:53 | NUR ---
Patient's insurance has denied LTACH stay.
--- NOTE | 2017-06-12 12:20 | NUR ---
Peer to peer information for [employer] (LTACH) reference number [id number]
[2017-06-12] MEDS ORDERED: Depakote250 MG PO (13:26)
--- NOTE | 2017-06-12 13:27 | NUR ---
Dr. Dipak mejias, peer to peer for LTACH denied by medical accountant.
[2017-06-12] MEDS ORDERED: FEOSOL325 MG PO (13:28)
[2017-06-12] MEDS ORDERED: DURAGESIC1 EAC1 TD (13:29)
[2017-06-12] MEDS ORDERED: TYLENOL325 M1 PO (14:59)
--- NOTE | 2017-06-12 15:04 | NUR ---
I PHONED [facility] AND ASKED FOR A FAXED MAR ON THIS PT. THE MED REC RECONCILED WITH THIS LIST.
[2017-06-13] VITALS (9 sets, daily range): BP systolic 95–135; BP diastolic 48–78
--- NOTE | 2017-06-13 | NUR ---
Patient resting quietly with no c/o discomfort. Respirations easy and regular. Vital signs stable. No overt distress. CARMEN RICO
--- NOTE | 2017-06-13 01:18 | NUR ---
24 HR chart check completed.
[2017-06-13 04:34] LABS: BASO % 0.3 % (0.0-1.0); EOS # 0.4 10*3/uL (0.0-0.4); EOS % 5.9 % (1.0-4.0); HEMATOCRIT 27.8 % (42.0-52.0); HEMOGLOBIN 8.3 g/dl (14.0-18.0); LYMPH # 2.2 10*3/uL (1.3-4.4); LYMPH % 29.8 % (27.0-41.0); MEAN CELL VOLUME 77.9 fl (80.0-94.0); MEAN CORPUSCULAR HGB 23.2 pg (27.0-31.0); MEAN CORPUSCULAR HGB CONC 29.9 g/dl (33.0-37.0); MEAN PLATELET VOLUME 9.3 fl (9.6-12.3); MONO # 0.5 10*3/uL (0.1-1.0); MONO % 6.6 % (3.0-9.0); NEUT # 4.3 10*3/uL (2.3-7.9); NUCLEATED RED BLOOD CELL 0.3 % (0.0-0.0); PLATELET COUNT AUTOMATED 243 10*3/uL (130-400); RED BLOOD COUNT 3.57 10*6/uL (4.50-5.90); RED CELL DISTRI WIDTH 18.6 % (0-14.5); WHITE BLOOD COUNT 7.5 10*3/uL (4.8-10.8)
[2017-06-13 05:06] LABS: ALBUMIN 1.7 gm/dl (3.1-4.5); ALKALINE PHOSPHATASE 63 U/L (45-117); BUN 26 mg/dl (7-24); CHLORIDE 105 mmol/L (98-107); CREATININE 0.72 mg/dL (0.70-1.30); POTASSIUM 4.3 mmol/L (3.5-5.1); SGOT/AST 27 IU/L (3-35); SGPT/ALT 106 U/L (12-78); SODIUM 142 mmol/L (136-145); TOTAL PROTEIN 5.2 gm/dL (6.4-8.2)
--- NOTE | 2017-06-13 08:33 | NUR ---
Arterial blood gases drawn from left radial after 1 attempt. The procedure was explained to the patient. The Flo's test was performed with satisfactory results. The artery was palpated. Zlpjpkw-[id number]-hqzcxws prep to site. The specimen was obtained and sent to the lab on ice. Digital pressure applied x 5 minutes. Pressure dressing applied. No bleeding or hematoma. Pulses equal bilaterally. MAIN CEJA
--- NOTE | 2017-06-13 08:35 | NUR ---
PT REMAINS INTUBATED WITH A #8 ENDOTUBE,22CM AT THE LIP. VSS. POX 100%ON 35% FIO2. LUNG SCHMITZ DIM. SUCTIONED PT FOR SCANT AMOUNT OF PALE YELLOW SECRETIONS. OGT PLACEMENT VERIFIED WITH AN AIR BOLUS. TUBE FEEDINGS CONTINUE AT 60CC/HR. 5CC RESIDUAL NOTED. ABD. SOFT WITH ACTIVE BOWEL SOUNDS. VELAZCO PATENT FOR CLEAR STRAW COLORED URINE. CBI TURNED OFF AT THIS TIME. DRESSING TO RIGHT LOWER HEEL D/I. DSG TO LEFT BUTTOCKS D/I. KRAIG HOSE TO LEFTLEG. BILATERAL PRAFO BOOTS. WARMED IV SALINE INFUSING INTO LEFT ARM PER ORDER. IV DIPRIVAN TURNED OFF TO BE ABLE TO ASSES PT'S MENTAL STATUS.
[2017-06-13 08:38] LABS: ABG BASE EXCESS 7.8 mmol/L (-2.0-2.0); ABG HCO3 33.3 mmol/l (22-26); ABG O2 SATURATION 94.5 % (95-97); ARTERIAL BLOOD GAS PCO2 54.9 mmHg (35-45); ARTERIAL BLOOD GAS PH 7.398 (7.35-7.45); ARTERIAL BLOOD GAS PO2 69.4 mmHg (80-90)
--- NOTE | 2017-06-13 09:00 | NUR ---
PT AWAKE AND ALERT. PT UPSET AND HITTING AT THE RAILS. ORIENTED PT TO PLACE AND TIME AND PLAN OF CARE. DR GAMEZ IN TO SEE PT. ORDERED TO TRY PT ON CPAP. DANIELLE, RESP. THERAPIST, PLACE VENT TO CPAP SETTINGS. PT VERY AGITATED AND LOGQ2TE TO HIT AT RAILS AND STAFF MEMBERS. REASSURED PT,EXPLAINED ALL PROCESSES AND PLAN OF CARE. PT DID CALM DOWN SOME. WILL CONTINUE TO ASSES PT.
--- NOTE | 2017-06-13 09:47 | NUR ---
HR 75, POX 95% RR 17. PT RESTING. PT TOLERATING CPAP WELL AT THIS TIME.
--- NOTE | 2017-06-13 10:25 | NUR ---
PT RESTING. POX 95%, BP 108/50, HR 65. PT CONTINUES TO TOLERATE CPAP WELL.
[2017-06-13 11:17] LABS: ABG BASE EXCESS 7.6 mmol/L (-2.0-2.0); ABG HCO3 32.3 mmol/l (22-26); ABG O2 SATURATION 96.6 % (95-97); ARTERIAL BLOOD GAS PCO2 48.2 mmHg (35-45); ARTERIAL BLOOD GAS PH 7.439 (7.35-7.45)
--- NOTE | 2017-06-13 11:26 | NUR ---
NOTIFIED DR GAMEZ OF ABG RESULTS. NEW ORDERS RECEIVED TO EXTUBATE PT TO BIPAP 06/07 AND LEAVE OGT IN. DANIELLE, RESP. THERAPIST NOTIFIED OF NEW ORDERS.
--- NOTE | 2017-06-13 11:53 | NUR ---
Patient extubated on physician's order to Bipap 16/10 backup 8 35% fio2. Pulse oximeter on with alarms set at 10% below patient's baseline. Pharyngeal reflex present prior to extubation. Patient encouraged to cough and deep breathe. Patient observed for skin color and temperature, monitor rhythm, respiratory rate and effort, and level of consciousness. Ogt left in per Dr. Ramirez's order. Patient tolerated procedure fairly well. MAIN CEJA
--- NOTE | 2017-06-13 12:19 | NUR ---
PT TOLERATING BIPAP WELL AT THIS TIME.
--- NOTE | 2017-06-13 12:26 | NUR ---
PT'S FAMILY IN TO VISIT WITH PT. UPDATED THEM ON PT'S CONDITION AND PLAN OF CARE. THEIR QUESTIONS WERE ANSWERED.
--- NOTE | 2017-06-13 16:33 | NUR ---
DR TRUJILLO IN TO SEE PT. UPDATED HIM ON PT'S CONDITION AND PLAN OF CARE.
--- NOTE | 2017-06-13 18:00 | NUR ---
PT INCONT. LARGE MUSHY BROWN BM. PT BATHED AND LINENS CHANGED.
--- NOTE | 2017-06-13 20:33 | NUR ---
1941 RESTING IN BED WITH HOB ELEVATED. SIDE RAILS UP X'S 2. BIPAP INTACT. PULSE OX 100% ON 35% O2 VIA BIPAP. BED IN ROTATION MODE. HEP LOCK'S INTACT RA AND LA. OGT INTACT. PLACEMENT CONFIRMED WITH AIR BOLUS/AUSCULTATION. TUBE FEEDING CONT. NO RESIDUAL NOTED. VELAZCO PATENT AND DRAINING CLEAR NICHOLAS URINE. NO DON BLEEDING NOTED. IRRIGATION REMAINS OFF. WRIST RESTRAINTS INTACT BILATERALLY. CIRCULATION ADEQUATE. 2024 PT MEDICATED WITH MORPHINE IV PER FAMILY REQUEST FOR GENERALIZED PAIN. WILL MONITOR.
--- NOTE | 2017-06-13 20:58 | NUR ---
EARLIER MORPHINE EFFECTIVE. LESS RESTLESSNESS NOTED.
--- NOTE | 2017-06-13 23:14 | NUR ---
RESTING IN BED WITH EYES CLOSED. APPEARS TO BE SLEEPING.
[2017-06-14] VITALS: BP 128/65
--- NOTE | 2017-06-14 02:17 | NUR ---
REMAINS SLEEPING WITHOUT DISTRESS. BIPAP INTACT. PULSE OX 99%.
[2017-06-14 04:00] VITALS: BP 115/60
--- NOTE | 2017-06-14 06:11 | NUR ---
SLEPT WELL THIS SHIFT. BIPAP INTACT. OGT INTACT WITH TUBE FEEDING CONT. NO DISTRESS NOTED. CONDITION GUARDED.
[2017-06-14 08:00] VITALS: BP 114/73; BP 145/81
[2017-06-14 12:00] VITALS: BP 128/59
[2017-06-14 16:00] VITALS: BP 113/57
[2017-06-14 20:00] VITALS: BP 123/62
--- NOTE | 2017-06-14 20:27 | NUR ---
1956 RESTING IN BED WITH HOB ELEVATED. SIDE RAILS UP X'S 2. PULSE OX 100% ON 3L 02 VIA NC. OGT INTACT WITH TUBE FEEDING CONT. PLACEMENT CONFIRMED WITH AIR BOLUS/ AUSCULTATION. NO RESIDUAL NOTED. HEP LOCK INTACT RA. 3 WAY VELAZCO PATENT AND DRAINING CLEAR YELLOW URINE. IRRIGATION OFF. WRIST RESTRAINTS INTACT BILATERALLY. CIRCULATION ADEQUATE. ISOLATION MAINTAINED. NO DISTRESS NOTED AT PRESENT. DRSG INTACT R HEEL
--- NOTE | 2017-06-14 22:00 | NUR ---
2100 OFFERED PT A BATH. STATED "I DON'T WANT A BATH." OFFERED AGAIN. STATED "NO" AND SHOOK HEAD. STATED THAT I WOULD CHECK BACK WITH HIM LATER. STATED AGAIN "NO, I DON'T WANT A BATH.".
--- NOTE | 2017-06-14 22:09 | NUR ---
RESTING INBED WATCHING TV. REMAINS WITHOUT C/O'S.
[2017-06-15] VITALS: BP 114/58
--- NOTE | 2017-06-15 00:04 | NUR ---
ATTEMPTED TO GIVE ORAL CARE EARLIER. PT YELLING "STOP". UNCCOOPERATIVE.
--- NOTE | 2017-06-15 02:52 | NUR ---
RESTING IN BED WITH EYES CLOSED. APPEARS TO BE SLEEPING.
[2017-06-15 04:00] VITALS: BP 109/52
[2017-06-15 05:09] LABS: BASO % 0.2 % (0.0-1.0); EOS # 0.4 10*3/uL (0.0-0.4); EOS % 4.5 % (1.0-4.0); HEMATOCRIT 26.6 % (42.0-52.0); HEMOGLOBIN 8.1 g/dl (14.0-18.0); LYMPH # 2.7 10*3/uL (1.3-4.4); LYMPH % 29.3 % (27.0-41.0); MEAN CELL VOLUME 78.7 fl (80.0-94.0); MEAN CORPUSCULAR HGB CONC 30.5 g/dl (33.0-37.0); MEAN PLATELET VOLUME 9.3 fl (9.6-12.3); MONO % 10.2 % (3.0-9.0); NEUT # 5.2 10*3/uL (2.3-7.9); NEUT % 55.4 % (47.0-73.0); PLATELET COUNT AUTOMATED 201 10*3/uL (130-400); RED BLOOD COUNT 3.38 10*6/uL (4.50-5.90); RED CELL DISTRI WIDTH 18.6 % (0-14.5); WHITE BLOOD COUNT 9.3 10*3/uL (4.8-10.8)
[2017-06-15 05:39] LABS: ALBUMIN 1.8 gm/dl (3.1-4.5); ALKALINE PHOSPHATASE 59 U/L (45-117); BUN 22 mg/dl (7-24); CHLORIDE 105 mmol/L (98-107); CREATININE 0.52 mg/dL (0.70-1.30); POTASSIUM 4.5 mmol/L (3.5-5.1); SGOT/AST 27 IU/L (3-35); SGPT/ALT 73 U/L (12-78); SODIUM 141 mmol/L (136-145)
--- NOTE | 2017-06-15 06:05 | NUR ---
REPOSITIONED. SLEPT WELL THIS SHIFT. TF CONT VIA OGT. 02 INTACT VIA SD. VELAZCO PATENT. NO DISTRESS NOTED. CONDITION GUARDED.
[2017-06-15 08:00] VITALS: BP 108/47
--- NOTE | 2017-06-15 09:00 | NUR ---
DR GAMEZ IN TO SEE PT.
--- NOTE | 2017-06-15 09:45 | NUR ---
UNSUCCESSFUL ATTEMPT TO PLACE NGT. POX DROPPED 69%. BIPAP APPLIED. WILL TRY AGAIN LATER.
--- NOTE | 2017-06-15 11:36 | NUR ---
SPEECH PATHOLOGY Orders for bedside swallow eval. received and chart review completed. Spoke with patient's nurse who reported that patient had recently been placed back on Bi-pap with OGT reinserted as he could not tolerate NG tube insertion with O2 sat dropping significantly. Due to this he is inappropriate to attempt oral feeding at this time. Thank you for this referral. KOSTAS AVILES MSCCC-ENERGY SALES BROKER
[2017-06-15 12:00] VITALS: BP 134/70
--- NOTE | 2017-06-15 13:08 | NUR ---
[facility] stated [facility] would like to accept this patient as he has been with them in the past. However, there are a few questions at this time regarding swallow eval, oral gastric tube and bipap usage. Mira at [facility] asked to have updates faxed in a couple of days to see if patient is improving. Will follow.
--- NOTE | 2017-06-15 15:09 | NUR ---
NGT PLACED IN RIGHT NARE. STAT PROTABLE CXR TAKEN FOR PLACEMENT VERIFICATION.
[2017-06-15 16:00] VITALS: BP 140/67
--- NOTE | 2017-06-15 16:52 | NUR ---
TIGIST Rome/Alex'Latricia.
--- NOTE | 2017-06-15 18:22 | NUR ---
MEDICATED PT PER PRN ORDER WITH MORPHINE FOR C/O PAIN. PT UNABLE TO RATE PAIN ON PAIN SCALE.
--- NOTE | 2017-06-15 18:59 | NUR ---
PT RESTING. EARLIER MORPHINE EFFECTIVE.
[2017-06-15 20:00] VITALS: BP 130/58
--- NOTE | 2017-06-15 20:00 | NUR ---
PATIENT LYING IN BED, NO DISTRESS NOTED. PATIENT HAS VISITOR AT BEDSIDE. PATIENT TRYING TO SPEAK, BUT WORDS ARE GARBLED UNABLE TO UNDERSTAND. PATIENT REMAINS ON VENTURI MASK. ALL DRESSINGS DRY AND INTACT. WILL CONTINUE TO MONITOR PATIENT. IN VIEW OF STAFF.
--- NOTE | 2017-06-15 20:14 | NUR ---
24 HR chart check completed.
[2017-06-16] VITALS: BP 114/59
--- NOTE | 2017-06-16 00:45 | NUR ---
CHECKED PLACEMENT OF NG, NOT ABLE TO ADVANCE AFTER SEVERAL TRIES TO INSERT FURTHER. PULLED NG WAS KINKED AT TIP. NEW NG PLACED IN RT NARE. AWAITING CHEST XRAY.
--- NOTE | 2017-06-16 01:22 | NUR ---
NEW CXR SHOWED NOT IN STOMACH. PATIENT NOT TOLERATING PROCEDURE. WILL LEAVE OUT TIL FURTHER INSTRUCTIONS FROM DOCTOR.
--- NOTE | 2017-06-16 01:48 | NUR ---
DR. GENAO CALLED IN TO STATE NG IS IN ESOPHAGUS, TOLD HER WE WERE UNABLE TO PLACE A NEW NG AND SHE STATED THAT WAS OK.
[2017-06-16 04:00] VITALS: BP 124/65
[2017-06-16 04:27] LABS: HEMATOCRIT 30.5 % (42.0-52.0); MEAN CELL VOLUME 79.8 fl (80.0-94.0); MEAN CORPUSCULAR HGB 23.6 pg (27.0-31.0); MEAN CORPUSCULAR HGB CONC 29.5 g/dl (33.0-37.0); MEAN PLATELET VOLUME 9.2 fl (9.6-12.3); PLATELET COUNT AUTOMATED 190 10*3/uL (130-400); RED BLOOD COUNT 3.82 10*6/uL (4.50-5.90); RED CELL DISTRI WIDTH 18.9 % (0-14.5); WHITE BLOOD COUNT 14.5 10*3/uL (4.8-10.8)
[2017-06-16 04:44] LABS: ALBUMIN 2.2 gm/dl (3.1-4.5); ALKALINE PHOSPHATASE 63 U/L (45-117); BUN 25 mg/dl (7-24); CHLORIDE 103 mmol/L (98-107); CREATININE 0.63 mg/dL (0.70-1.30); POTASSIUM 4.5 mmol/L (3.5-5.1); SGOT/AST 31 IU/L (3-35); SGPT/ALT 76 U/L (12-78); SODIUM 142 mmol/L (136-145)
[2017-06-16 04:48] LABS: TOTAL CELLS COUNTED 100 #CELLS
[2017-06-16 04:49] LABS: MICROCYTOSIS SLIGHT; PLATELET SUFFICIENCY NORMAL (NORMAL); POLYCHROMASIA SLIGHT
[2017-06-16 04:59] LABS: PREALBUMIN 21 mg/dl (20-40)
--- NOTE | 2017-06-16 05:57 | NUR ---
PATIENT MOVED TO [facility] BED 420.
--- NOTE | 2017-06-16 07:50 | NUR ---
PT RESTING IN BED WITH EYES CLOSED. LETHARGIC. RESP-EASY AND REGULAR. VENTURI MASK ON. REPOSTIIONED IN BED. CALL LIGHT IN REACH. SEE SHIFT ASSESSMENT.
[2017-06-16 08:00] VITALS: BP 126/54
--- NOTE | 2017-06-16 10:00 | NUR ---
PT RESTING IN BED WITH VENTURI MASK ON. RESP-EASY AND REGTULAR. PT REPOSTIIONED IN BED FOR COMFORT. PT LETHARGIC MOANS WITH MOVEMENT. CALL LIGHT IN REACH.
--- NOTE | 2017-06-16 10:13 | NUR ---
Attempted OT evaluation this AM at BS. Pt unable to participate, discussed with nursing. Not appropriate for OT eval this date.
--- NOTE | 2017-06-16 10:13 | NUR ---
PHYSICAL THERAPY PAtient medically inappropriate for PT this date, nursing agrees. Will check patients status at a later date. Thank you for this referral. Saloni Lugo,PT
--- NOTE | 2017-06-16 11:22 | NUR ---
SPOKE WITH SPEECH REGARDING DR. GENAO WANTING SWALLOW EVAL DONE ON HIM. SHE STATES SHE WILL DO IT THIS AFTERNOON.
[2017-06-16 12:00] VITALS: BP 116/44
--- NOTE | 2017-06-16 13:48 | NUR ---
DRESSING TO LEFT HEELL CHANGED PER ORDERS. AND DRESSING TO BUTTOCK CHANGED PER ORDER AND BRIDGE OF NOSE CHANGED. PT BATHED AND RESTING IN BED WITH EYES CLOSED. VENTURI MASK ON. CALL LIGHT IN REACH.
--- NOTE | 2017-06-16 14:00 | NUR ---
PROTECTA GEL PLACED UNDERNEATH VENTURI MASK PER WOUND CARE NURSE.
--- NOTE | 2017-06-16 14:00 | NUR ---
SPOKE WITH DR. GENAO MADE AWARE PT FAILED SWALLOW TEST AND TO KEEP NPO. SHE STATES SHE TALKED TO DR. ÁLVAREZ AND HE MAY TAKE HIM FOR G TUBE TOMORROW PER DR. GENAO.
--- NOTE | 2017-06-16 14:06 | NUR ---
SPOKE WITH SPARKLE MILAN SON AND HE WANTS TO TALK WITH SISTER FLACO THEY WOULD WANT HIM BACK ON VENTILATOR IF NEEDED. HE WILL LET US KNOW.
--- NOTE | 2017-06-16 14:28 | NUR ---
PAULROSEANNE BENITEZ [id number] Please refer to the physician's history and physical for past medical history, comorbid conditions, and allergies. Diagnosis: NSTEMI,UTI,PNEUMONIA INVOLVING RT LUNG,SEVERE SEPS Rodney Score: 11,HIGH RISK WOUND DESCRIPTIONS: Location of the wound: bridge of nose Type of wound: stage 2 Thickness: Partial Size: 1.5cm x 2.0cm x 0.1cm Tunneling: none Undermining: none Sinus Tract: none Presence of Exudate: Sanguineous Amount: Light Color: Red Odor: None Periwound Skin Appearance: Erythema Wound edges: approximated Pain (associated with wound): none at time of assessment How does patient state this happened? pt unable to stated how this occured. Documentation stated the area was from the bipap mask even with protective gel in placed since bipap was initiated. Using shield and nasal cushion. Masked was changed to size c under nose cushion. Surface the patient is resting on: Isoflex SKIN PREVENTION RECOMMENDATION: 1. Pressure redistribution support surface as appropriate 2. Elevate heels 3. Remove boots/TEDS every shift and reapply 4. Head of bed 30 degrees as tolerated 5. Assess nutrition and hydration 6. Manage moisture 7. Avoid the use of containment devices while in bed 8. Use absorptive products on surfaces limit layers of linens on bed 9. Turn and reposition every 1-2 hours in bed and every 1 hour in chair as tolerated 10. Weight shifts every 15 minutes while up in chair 11. Offloading with pillows or device to keep heels elevated off bed 12. Monitor skin at least every shift 13. Inspect under medical devices twice a day WOUND TREATMENT RECOMMENDATIONS: Continue current orders.
--- NOTE | 2017-06-16 14:40 | NUR ---
SPEECH PATHOLOGY Bedside evaluation completed as per orders. Patient in poor condition overall. He was resting with o2 via mask, in a consisent open mouth position, with limited response elicited. He followed no commands and did not verbalize. Oral stim. attempted with swab. Patient clamped mouth shut on all trials. Due to poor status, feeding was not able to be attempted. Recommend patient remain NPO at this time. Follow up is recommended for continued assessment. Results and deep. were shared with patient's nurse who verbalized understanding. Refer to [facility] in [facility] for further information. Thank you for this referral. KOSTAS AVILES MSCCC-CARD MAKER
[2017-06-16 16:00] VITALS: BP 130/58
--- NOTE | 2017-06-16 19:49 | NUR ---
24 HR chart check completed.
[2017-06-16 20:00] VITALS: BP 130/56
--- NOTE | 2017-06-16 20:00 | NUR ---
FAMILY AT BEDSIDE AND REQUESTING AM L ARM ULTRASOUND D/T SWELLING. RN TO NOTIFY DR IN AM.
[2017-06-17] VITALS: BP 154/64
--- NOTE | 2017-06-17 | NUR ---
PT ENCOURAGED TO LEAVE BIPAP ON AND VELAZCO ALONE.
--- NOTE | 2017-06-17 04:00 | NUR ---
Patient resting quietly with no c/o discomfort. Respirations easy and regular. Vital signs stable. No overt distress. CARMEN RICO
[2017-06-17 07:52] LABS: HEMATOCRIT 27.7 % (42.0-52.0); HEMOGLOBIN 8.3 g/dl (14.0-18.0); MEAN CELL VOLUME 80.3 fl (80.0-94.0); MEAN CORPUSCULAR HGB 24.1 pg (27.0-31.0); MEAN PLATELET VOLUME 10.5 fl (9.6-12.3); NUCLEATED RED BLOOD CELL 0.1 % (0.0-0.0); PLATELET COUNT AUTOMATED 170 10*3/uL (130-400); RED BLOOD COUNT 3.45 10*6/uL (4.50-5.90); RED CELL DISTRI WIDTH 19.2 % (0-14.5); WHITE BLOOD COUNT 15.4 10*3/uL (4.8-10.8)
[2017-06-17 08:00] VITALS: BP 118/72
[2017-06-17 08:08] LABS: TOTAL CELLS COUNTED 100 #CELLS
--- NOTE | 2017-06-17 08:08 | NUR ---
DR GENAO IN AND UPDATED ON FAMILY'S WISHES DETAILED IN PT NOTES.
--- NOTE | 2017-06-17 08:08 | NUR ---
I NOTIFIED DR GENAO THAT PT REFUSED TO LET LAB DRAW HIS CMP TODAY.
[2017-06-17 08:09] LABS: OVALOCYTES FEW; PLATELET SUFFICIENCY NORMAL (NORMAL); POLYCHROMASIA SLIGHT
--- NOTE | 2017-06-17 08:49 | NUR ---
SPEECH PATHOLOGY Patient was seen for follow up visit this am. Orders for bedside swallow eval. were received yesterday but patient was minimally responsive and unable to participate therefore continued NPO was recommended. Patient was seen this am. He was awake in bed receiving o2 via mask. Patient was responsive and verbal. He followed simple commands and performed oral exercises. He attempted dry swallows and was able to initiate them following moderate delay. Oral presentations were not offered due to high aspiration risk with history of dysphagia as well as compromised respiratory status. In order to fully assess most appropriate means of nutrition it is recommended patient undergo a MBS as aspiration cannot be fully detected at bedside. Results and deep. were shared with patient's nurse who verbalized understanding. Follow up deep. will be pending MBS. KOSTAS AVILES [facility] -PATIENT SUPPORT REPRESENTATIVE
--- NOTE | 2017-06-17 09:23 | NUR ---
PHYSICAL THERAPY PAtient inappropriate for PT this date. Restrained due to refusing all medical procedures this am and attempting to remove all medical devices from body as well as aggitated when awake. Asleep with [address] Will continue to check status at a later date. Saloni Lugo,PT
[2017-06-17 10:03] LABS: ALBUMIN 2.3 gm/dl (3.1-4.5); ALKALINE PHOSPHATASE 62 U/L (45-117); BUN 27 mg/dl (7-24); CHLORIDE 105 mmol/L (98-107); CREATININE 0.57 mg/dL (0.70-1.30); SGOT/AST 35 IU/L (3-35); SGPT/ALT 70 U/L (12-78); SODIUM 143 mmol/L (136-145); TOTAL PROTEIN 5.9 gm/dL (6.4-8.2)
--- NOTE | 2017-06-17 10:33 | NUR ---
Patient not appropriate for Occupational Therapy this date. Patient in bed asleep with O2 mask in place and bilateral wrist restraints d/t attempts to pull out tubing this am. Per nursing, patinet was aggressive this am and refused am blood work, etc. OTR with recheck at a later date. Thank for this referral. Amna Sosa OTR/L
--- NOTE | 2017-06-17 11:38 | NUR ---
Nutritional Support Services Note: Pt remains NPO with NGT being discontinued. Speech therapy to do MBS for safe swallowing for pt. Will continue to follow for nutrition support. Anna Guevara
--- NOTE | 2017-06-17 11:56 | NUR ---
Faxed updates to [facility], waiting on acceptance.
[2017-06-17 12:00] VITALS: BP 122/52
[2017-06-17 16:00] VITALS: BP 130/60
--- NOTE | 2017-06-17 19:40 | NUR ---
PATIETN IS AWAKE, AND ALERT. PLEASANT AND COOPERATIVE WITH ASSESMENT. LUNGS ARE DIMINISHED WITH SCATTERRED RHINCI THROUGHOUT LUNGFIELDS . VENTI MASK ON AT 40%. ABDOMEN IS SOFT ANBD NON-TENDER UPON PALPATION, BOWEL SOUNDS ARE NORMOACTIVE X 4 QUADS. 1-2+ EDEMA TO LEFT ARM AND HAND. TRACE EDEMA TO BLE, PPP. PATIENT DENIES ANY PAIN OR DISCOMCORT. FAMILY IS AT BEDSIDE. CALL LIGHT IS IN REACH.
[2017-06-17 20:00] VITALS: BP 109/59
--- NOTE | 2017-06-17 21:05 | NUR ---
PER FAMILY'S REQUEST DR. ÁLVAREZ CALLED AND INFORMED THAT THEY WANT THE PATIETN TO HAVE A FEEDING TUBE . ALSO FAMILY REQUESTED IV HYDRATION UNTIL FEEDING TUBE CAN BE PLACED. NEW ORDERS RECIEVED AT THIS TIME.
--- NOTE | 2017-06-17 22:17 | NUR ---
24 HOUR CHART CHECK COMPLETED AT THIS TIME
--- NOTE | 2017-06-17 23:31 | NUR ---
PATIENT RESTING IN BED WITH EYES CLOSED BILATERALLY. BI-PAP ON AT THIS TIME. NO S/S OF DISCOMOFORT. CALL LIGHT IS IN REACH.
[2017-06-18] VITALS: BP 131/70
[2017-06-18 07:03] LABS: BUN 22 mg/dl (7-24); CHLORIDE 108 mmol/L (98-107); CREATININE 0.63 mg/dL (0.70-1.30); POTASSIUM 3.7 mmol/L (3.5-5.1); SODIUM 144 mmol/L (136-145)
--- NOTE | 2017-06-18 07:45 | NUR ---
CHART CHECK COMPLETE.
[2017-06-18 08:00] VITALS: BP 138/68
--- NOTE | 2017-06-18 08:20 | NUR ---
DR GENAO ROUNDED AND VIEWED PT WOUND ON RIGHT BOTTOM HEEL AND ORDERS RECIEVED.
--- NOTE | 2017-06-18 08:52 | NUR ---
DRESSING CHANGE COMPLETED PER PHYSICIAN ORDER. DR GENAO WAS REQUESTING A WOUND CARE PRODUCT WE DO NOT USE, HYDROPHILLIC FOAM TO BE PUT AT HEEL SITE. I WILL NOTIFY JULIÁN MOSQUEDA RN.
--- NOTE | 2017-06-18 11:52 | NUR ---
SPEECH PATHOLOGY MBS completed as per orders. Patient was alert, responsive and able to follow simple commands. Congestion and cough was displayed and patient coughed out blood tinged mucous prior to exam. Based upon assessment results, patient displayed a mild-moderate oropharyngeal dysphagia. He did well with puree. He would not accept soft solid presented, stating he could not chew it. Residue was observed in valleculae with nectar and honey thick liquids which patient had difficulty clearing. When challenged with thin liquid, he successfully cleared most of the residue. Recommend pureed food and thin liquid. Recommend upright seating for meals, small bites/sips, alternating liquids and double swallows after every couple bites. Results and deep. were shared with patient's nurse who verbalized understanding. Follow up therapy is deep. focusing on strengthening exercises, use of strategies and education to ensure safe tolerance. Dictated report to follow. Thank you for this referral. KOSTAS AVILES MS[facility]-DIAMOND FINISHING SUPERVISOR
[2017-06-18 12:00] VITALS: BP 133/53
--- NOTE | 2017-06-18 12:06 | NUR ---
SPEECH THERAPY NOTIFIED ME OF RESULTS OF MODIFIED BARIUM SWALLOW AND EVAL, NO ASPIRATION, RECCOMMENDS THIN LIQUIDS AND PUREED DIET.
--- NOTE | 2017-06-18 13:41 | NUR ---
PHYSICAL THERAPY PAtient evaluated on 4, full evaluation to follow. Continue with PT as per plan of care with fall, max(A) x 2, recent aggitation with wrist retraints as well a wounds to (b)LE feet and MRSA of some wounds and 02 precautions. Good LTAC canidate but insurance refuses- will require SNF for impaired mobility and wounds. Patient is high complexity via chart review, tests and evaluation: 84012. Thank you for this referral. Saloni Lugo,PT
--- NOTE | 2017-06-18 13:54 | NUR ---
Received call from Imelda Natarajan, patients son Alvaro ([facility]) contacted her regarding placement at one of their facilities, either [facility] or [facility]. Imelda stated he is going to tour [facility] this afternoon and she will let me know his choice of buildings. Will follow.
--- NOTE | 2017-06-18 14:28 | NUR ---
Occupational Therapy evaluation completed this date on 4 with full eval to follow. Precautions include LUE edema, wrist restraints, peace, [place], O2 dep, poor sit balance, dep ADLs, high complexity level 96549. Recommend OT per POC and SNF to enable improved ADLs, sit balance and UE functional use. Thank you for this referral. Amna Sosa OTR/l
--- NOTE | 2017-06-18 14:35 | NUR ---
NOTIFIED DR MURRY OF RESULTS OF MODIFIED BARIUM SWALLOW. NO NEW ORDERS. ADVISED ME TO NOTIFY FAMILY.PT WILL STILL BE NPO FOR PROCEDURE IN AM.
[2017-06-18 16:00] VITALS: BP 120/63
[2017-06-18 20:00] VITALS: BP 144/65
[2017-06-19] VITALS: BP 133/61
--- NOTE | 2017-06-19 02:45 | NUR ---
PT HAD INCREASED TEMP OF 101(A) CALL PLACED TO DR. GENAO AND NEW ORDER FOR ACETAMINOPHEN 650MG R/S, WILL MONITOR EFFECTS
--- NOTE | 2017-06-19 05:46 | NUR ---
ACETAMINOPHEN 650MG R/S EFFECTIVE AT THIS TIME, PT TEMP HAS DECREASED TO 97.4(A)
--- NOTE | 2017-06-19 07:48 | NUR ---
Shift chart check completed.
[2017-06-19 08:00] VITALS: BP 117/71
--- NOTE | 2017-06-19 08:55 | NUR ---
PHYSICAL THERAPY Patient presented to therapy supine with a O2 mask on and with restraints on both wrists. Patient performed ther in supine AAROM and AROM X 10 REPS each in all planes of mvmt. Patient unable to sit up ,so ROM and manual stretching performed om pamela. LES. Patient was 1:1 with this OLIVE PICKER for 15 minutes of ther ex. Pedro Abarca OLIVE PICKER
[2017-06-19 09:28] LABS: HEMOGLOBIN 8.2 g/dl (14.0-18.0); MEAN CELL VOLUME 80.1 fl (80.0-94.0); MEAN CORPUSCULAR HGB 24.3 pg (27.0-31.0); MEAN CORPUSCULAR HGB CONC 30.4 g/dl (33.0-37.0); MEAN PLATELET VOLUME 9.4 fl (9.6-12.3); PLATELET COUNT AUTOMATED 170 10*3/uL (130-400); RED BLOOD COUNT 3.37 10*6/uL (4.50-5.90); WHITE BLOOD COUNT 20.5 10*3/uL (4.8-10.8)
[2017-06-19 09:51] LABS: PLATELET SUFFICIENCY NORMAL (NORMAL); TOTAL CELLS COUNTED 100 #CELLS
--- NOTE | 2017-06-19 10:10 | NUR ---
Faxed updates to kadie Natarajan for placement. Unsure of which building at this time, family is still deciding. Will follow
--- NOTE | 2017-06-19 10:51 | NUR ---
SPEECH PATHOLOGY Treatment was attempted this am. Patient was asleep in bed with multiple family members present. Family reported that he had experienced a decline in status last night. Patient was on oxygen mask and did not respond. He remains NPO at this time as he is scheduled for a procedure this morning if medical status permits. Treatment withheld at this time due to his condition. Continue therapy plan as appropriate. KOSTAS AVILES MSCCC-DELIVERY REPRESENTATIVE
[2017-06-19 12:00] VITALS: BP 111/48
[2017-06-19 12:02] LABS: BILIRUBIN 1+ (NEGATIVE); BLOOD 3+ (NEGATIVE); CLARITY CLOUDY (CLEAR); COLOR YELLOW (YELLOW); GLUCOSE NEGATIVE (NEGATIVE); KETONE NEGATIVE (NEGATIVE); LEUKO ESTERASE 1+ (NEGATIVE); NITRITE NEGATIVE (NEGATIVE)
[2017-06-19 12:12] LABS: BACTERIA 1+; MUCOUS 1+; RBC 21-30 rbc/hpf (0-2); WBC 16-20 wbc/hpf (0-5)
--- NOTE | 2017-06-19 12:35 | NUR ---
Dr. Quesada requesting i speak with family about hospice either [facility] or at home. In to discuss with Alvaro and Maryam. Discussed all options with hospice. Called Imelda Natarajan from [facility] on speaker so she could discuss the cost of bringing patient to her facilities under hospice. Also discussed option of a hospice house. Provided them with a list of hospice providers and told them to look it over, I will be back shortly to discuss further.
--- NOTE | 2017-06-19 12:56 | NUR ---
Nutritional Support Services Note: Condition has decline over night. Family is considering Hospice care. Remains NPO. Will follow as needed. Anna Guevara
--- NOTE | 2017-06-19 13:30 | NUR ---
I went back into patients room with Imelda Natarajan from the [facility] to discuss further with family about decisions. They were not present, nurse stated they had left and stated I was to call Alvaro. I called him and was told they are NOT making a decision about hospice for a few more days, they want to continue to treat him. Sent message to Dr. Quesada explaining patients decision at this time. She asked to have patient discharged to [facility]. Imelda Natarajan stated in the patients current condition they are unable to accept him. Will follow
[2017-06-19 16:00] VITALS: BP 109/47
--- NOTE | 2017-06-19 18:52 | NUR ---
SPOKE TO DR GENAO REGARDING DIET ORDER. ORDERS RECIEVED.
--- NOTE | 2017-06-19 19:38 | NUR ---
PATIENT SITTING UP IN BED WITH FAMILY AT BEDSIDE ASSISTING HIM WITH HIS MEAL AT THIS TIME. NO COUGHING OR CHOCKING WITNESSED. PATIETN IS ALERT AND ORIENTED TO SELF. PLEASANT AND COOPERATIVE. LUNGS ARE DIMINISHED WITH SCATTERED RHONCI THROUGHOUT LUNGFIELDS. VENTURI MASK ON AT 40%. ABDOMEN IS SOFTLY DISTENDED, NOMROACTIVE BOWEL SOUNDS X 4 QUADS. GENERALIZED EDEMA TO BILATERAL ARMS AND HANDS, TRACE EDEMA TO BLE , PPP. PATIENT DNEIES ANY PAIN OR DISCOMFORT. CALL LIGHT IS IN REACH.
[2017-06-19 20:00] VITALS: BP 106/44
[2017-06-20] VITALS: BP 124/60
[2017-06-20 06:41] LABS: BASO % 0.2 % (0.0-1.0); EOS # 0.1 10*3/uL (0.0-0.4); EOS % 0.8 % (1.0-4.0); HEMATOCRIT 25.3 % (42.0-52.0); HEMOGLOBIN 7.5 g/dl (14.0-18.0); LYMPH % 7.9 % (27.0-41.0); MEAN CELL VOLUME 80.3 fl (80.0-94.0); MEAN CORPUSCULAR HGB 23.8 pg (27.0-31.0); MEAN CORPUSCULAR HGB CONC 29.6 g/dl (33.0-37.0); MEAN PLATELET VOLUME 9.9 fl (9.6-12.3); MONO # 1.1 10*3/uL (0.1-1.0); MONO % 8.5 % (3.0-9.0); NEUT # 10.7 10*3/uL (2.3-7.9); NEUT % 82.1 % (47.0-73.0); PLATELET COUNT AUTOMATED 179 10*3/uL (130-400); RED BLOOD COUNT 3.15 10*6/uL (4.50-5.90); RED CELL DISTRI WIDTH 20.5 % (0-14.5)
[2017-06-20 07:25] LABS: BUN 17 mg/dl (7-24); CHLORIDE 113 mmol/L (98-107); CREATININE 0.59 mg/dL (0.70-1.30); POTASSIUM 3.2 mmol/L (3.5-5.1); SODIUM 147 mmol/L (136-145)
[2017-06-20 08:00] VITALS: BP 130/54
[2017-06-20 12:00] VITALS: BP 113/47
[2017-06-20 13:46] VITALS: BP 108/54
[2017-06-20 16:00] VITALS: BP 124/61
[2017-06-20 20:00] VITALS: BP 136/86
[2017-06-21] VITALS: BP 127/66
--- NOTE | 2017-06-21 07:46 | NUR ---
Rested quietly through the night. Refused Bipap, 98% on 40% Venturi. Family at bedside through the night. Patient and family stated no bloodwork today. Dr. Boles notified of 7 beat run of V-tach, no new orders. Dr. Quesada notified of VRE of urine and red irritation to creases of thighs with orders recieved. Will continue to monitor.
[2017-06-21 08:00] VITALS: BP 133/62
[2017-06-21 12:00] VITALS: BP 112/45
[2017-06-21 16:00] VITALS: BP 115/45
[2017-06-21 20:00] VITALS: BP 113/49
[2017-06-22] VITALS: BP 126/61
--- NOTE | 2017-06-22 02:08 | NUR ---
.,M24 HR chart check completed.
[2017-06-22 04:00] VITALS: BP 124/60
[2017-06-22 08:00] VITALS: BP 144/60
--- NOTE | 2017-06-22 09:06 | NUR ---
EMAIL SENT TO [facility] FOR ETHICS CONSULT PER ORDER OF DR GENAO.
--- NOTE | 2017-06-22 09:21 | NUR ---
PATIENT RESTING IN BED, FEELS TIRED AND IS WANTING TO SLEEP. PATIENT DENIES ANY PAIN OR SOB. HOB ELEVATED PER PATIENT REQUEST. WILL CONTINUE TO MONITOR THE PATIENT FOR DYSPNEA. CALL LIGHT IS WITHIN REACH.
--- NOTE | 2017-06-22 09:41 | NUR ---
PHYSICAL THERAPY Patient presented to therapy in supine with 02 mask on. Patient refused to be treated this date and wants therapy to come back later. Pedro Abarca CASTING WHEEL OPERATOR
--- NOTE | 2017-06-22 10:01 | NUR ---
Nutritional Support Services Note: Diet advanced to pureed with thin liquids. Needs fed meals. Tolerating po intake. Encourage intake. [place] food preferences. Recommend Boost po bid. Family continues to decide about Hospice care. Pt is eating 50% of meal tray. Will follow. Anna Guevara
--- NOTE | 2017-06-22 10:35 | NUR ---
BIOETHICS CONSULT- I spoke to Mr. Echevarria's son Alvaro, at the request of Dr. Quesada, regarding making Mr. Echevarria a hospice patient. Alvaro explained that while his father is making improvements he would prefer he continue to be completely treated. If his father takes another turn for the worse he will then consider hospice. I told him I understood completely and we would continue to care for him as we were now. I did ask if we continue to work towards discharging to a alf facility and he replied "yes, the [facility]."
--- NOTE | 2017-06-22 10:43 | NUR ---
SPEECH PATHOLOGY Patient unavailable for treatment at this time. He was out of room for a procedure. KOSTAS AIVLES MS[facility]-SOFTWARE RELEASE ENGINEER
--- NOTE | 2017-06-22 11:36 | NUR ---
PATIENT IN BED ASLEEP AND UNABLE TO AROUSE IN AM. WILL ATTEMPT LATER DATE. KEREN AGUIRRE/Álvaro
[2017-06-22 12:00] VITALS: BP 125/53
--- NOTE | 2017-06-22 12:57 | NUR ---
PATIENT IS SLEEPING IN THE BED. PATIENT IS LETHARGIC AND DRIFTS IN AND OUT OF SLEEP. PATIENT IS RECEIVING 3LPM VIA NASAL CANNULA. PATIENT DENIES AND PAIN OR SOB. FAMILY MEMBER IS AT THE BEDSIDE, CALL LIGHT IS WITHIN REACH.
[2017-06-22 16:00] VITALS: BP 129/55
--- NOTE | 2017-06-22 17:15 | NUR ---
PATIENT IS SITTING UP IN BED, PATIENT DENIES ANY PAIN, BUT HAS DISCOMFORT ON HIS LEFT INNER THIGH. HAVE ENCOURAGED TURNING AND REPOSITIONING TO REDUCE PRESSURE ON THE LEFT LEG. FAMILY MEMBER AT THE PATIENT BEDSIDE. CALL LIGHT WITHIN REACH.
[2017-06-22 20:00] VITALS: BP 113/56
--- NOTE | 2017-06-22 20:00 | NUR ---
AWAKE & ALERT SITTING UP IN BED WITH HOB ELEVATED. LUNGS DIMINISHED BILATERALLY; PT. HAS A MOIST NONPRODUCTIVE COUGH. IV FLUIDS INFUSING ORDERED INTO UPPER LEFT ARM; SITE ASYMPTOMATIC. VELAZCO PATENT FOR YELLOW URINE WITH SEDIMENT. PT. HAS GENERALIZED EDEMA. FAMILY MEMBERS VISITING. BED IN LOW POSITION; WILL CONTINUE TO MONITOR.
--- NOTE | 2017-06-22 22:30 | NUR ---
ELEVATED HOB TO GIVE PT. PO MEDICATIONS. TOOK PO MEDICATIONS CRUSHED IN APPLE SAUCE. COOPERATIVE. FAMILY PRESENT IN ROOM & ENCOURAGING PT. TO TAKE PO MEDICATIONS. PT. ALSO DRINKING BOOST FOR FAMILY MEMBER.
[2017-06-23] VITALS: BP 99/67
--- NOTE | 2017-06-23 03:06 | NUR ---
24HR. CHART CHECK COMPLETE.
[2017-06-23 08:00] VITALS: BP 128/56
--- NOTE | 2017-06-23 08:58 | NUR ---
Faxed updates to [facility], requested PT and OT notes for precert. Waiting for auth.
--- NOTE | 2017-06-23 09:30 | NUR ---
DR. GAMEZ IN TO SEE PATIENT RE: PLAN OF CARE, ORDER ENTERED FOR RIGHT SIDE THORACENTESIS. PER RADIOLOGY, PROCEDURE CAN BE DONE TODAY PENDING TELEPHONE CONSENT FROM FAMILY AND PRE-PROCEDURE LABS PER POLICY.
--- NOTE | 2017-06-23 09:33 | NUR ---
PHYSICAL THERAPY Mr Maynard was seen this AM 1:1 for his physical therapy session. Pt was supine in bed and at this time not wanting any therapy, did not want to sit up on the side of his bed and said thats all. Said that he might this afternoon after much talking. I will check back later today. BELKIS GUERRERO FRAME CATCHER.
--- NOTE | 2017-06-23 09:45 | NUR ---
SPEECH PATHOLOGY Patient was seen for treatment this am during breakfast meal. Patient was alert and cooperative. O2 via NC was worn. Congested cough at rest remains. Patient fed himself pancakes and various liquids. He displayed no oral residue with pancakes. His swallow was timely. No immediate cough post swallow was displayed and vocal quality was clear. Recommend patient remain on present diet with continued use of safe swallow strategies. Continue plan. KOSTAS AVILES MSCCC-BLOW MOULDING MACHINE OPERATOR
--- NOTE | 2017-06-23 09:55 | NUR ---
Patient seen this date for an occupational therapy treatment. Patient sitting up in bed with right sided lean. Patient was eating breakfast with set up assistance required. He was observed drinking and feeding himself using his right hand. Patient educated on centering body in bed to decrease risk of choking, however patient refused. Patient completed a reaching task with crossing midline. Patient refused to complete a bed mobility task and to sit on side of bed. Patient was alert and was difficult to understand. Patient would continue to benefit from skilled therapy.
--- NOTE | 2017-06-23 10:34 | NUR ---
PHYSICAL THERAPY PT treatment this date x 10 minutes 1:1 with PT. PAtient receptive to (B) LE theraputic exercises and bed mobility. Attempted supine to sit, max (A) x 1 and patient requested to be laid back down immediately 50 % through transfers. Bed mobility including rolling right to left and left ot right max (A) x 1 with max cues for seqeunce, safety and proper UE/LE placement as well as encouragement. Scooting towards head of bed, supine, max (A) with max cues as above. Unable to bridge this date to assist with scooting toward head of bed due to significant acute debility. (B)LE supine theraputic exercses with assist prn 1 x 8: short arc quads, straight leg raise, hip abd/add and heel slides ( with heel protectors intact)- constant visual, verbal and tactile cues for speed, accuracy and completion. Multiple rests for significant fatigue. PAtient very fatigued and unable to complete aditional treatment at this date. PAtient conitnues to requrie extensive PT to increase mobility and safety to return to PLOF. PAtient with two nursing assistants for bathing at end of treatment. Saloni Lugo,.PT
--- NOTE | 2017-06-23 11:37 | NUR ---
Faxed all clincals to [facility] to start precert for this patient to go to either [facility] or [facility]. [facility] contacted patient's son, Alvaro, who stated he will make a choice today before 12:00 noon and get back to her. He then called and told her, his sister Maryam now wants to tour the facilities prior to making a decision. [facility] informed them that this patient is discharged and until they make a decision, she can't start precert for a building.
[2017-06-23 12:00] VITALS: BP 123/65
--- NOTE | 2017-06-23 12:08 | NUR ---
OBTAINED TELEPHONE CONSENT FOR THORACENTESIS FROM PATIENT'S POA/[facility]. ALSO OBTAINED CONSENT FOR PHOTOGRAPHY OF WOUNDS. PATIENT REFUSING STAT BLOOD WORK FOR PRE-PROCEDURE THORACENTESIS UNTIL HE TALKS TO HIS DAUGHTER, HE STATES SHE WILL BE IN LATER TODAY. LEFT MESSAGE WITH ULTRASOUND DEPARTMENT.
--- NOTE | 2017-06-23 12:32 | NUR ---
Family decided on [facility], [facility] stated they are starting precert now and will do everything they can to get an auth today. Waiting for auth.
--- NOTE | 2017-06-23 12:35 | NUR ---
PATIENT'S DAUGHTER IN TO VISIT, PATIENT AGREEABLE TO LAB DRAWS PRIOR TO PROCEDURE, LAB AND ULTRASOUND NOTIFIED.
[2017-06-23 12:57] LABS: BASO % 0.5 % (0.0-1.0); EOS # 0.5 10*3/uL (0.0-0.4); EOS % 5.7 % (1.0-4.0); HEMATOCRIT 28.4 % (42.0-52.0); HEMOGLOBIN 8.5 g/dl (14.0-18.0); LYMPH % 12.3 % (27.0-41.0); MEAN CORPUSCULAR HGB 23.9 pg (27.0-31.0); MEAN CORPUSCULAR HGB CONC 29.9 g/dl (33.0-37.0); MEAN PLATELET VOLUME 9.1 fl (9.6-12.3); MONO # 0.6 10*3/uL (0.1-1.0); MONO % 6.5 % (3.0-9.0); NEUT # 6.3 10*3/uL (2.3-7.9); NEUT % 74.6 % (47.0-73.0); PLATELET COUNT AUTOMATED 288 10*3/uL (130-400); RED BLOOD COUNT 3.55 10*6/uL (4.50-5.90); RED CELL DISTRI WIDTH 21.1 % (0-14.5); WHITE BLOOD COUNT 8.4 10*3/uL (4.8-10.8)
[2017-06-23 13:06] LABS: ACT PARTIAL THROMBO TIME 26.4 SECONDS (20.8-31.5); INTERNATIONAL NORM RATIO 1.1 (2.0-3.5)
--- NOTE | 2017-06-23 14:03 | NUR ---
PATIENT TO ULTRASOUND BY CART FOR THORACENTESIS. DAUGHTER IS ACCOMPANYING.
--- NOTE | 2017-06-23 14:54 | NUR ---
PATIENT BACK FROM RADIOLOGY, RESUMING DIET, HOB UP 30 DEGREES.
--- NOTE | 2017-06-23 15:21 | NUR ---
Received authorization for patient to go to the [facility]. Patient can go when stable for discharge.
[2017-06-23 15:46] LABS: BODY FLUID WBC 245 /uL
[2017-06-23 16:00] VITALS: BP 145/70
[2017-06-23 16:33] LABS: BF LYMPHOCYTES 28 %; BF MESOTHELIALS 3 %; BF MONOCYTES 2 %; BF NEUTROPHILS 66 %
[2017-06-23 20:00] VITALS: BP 146/74
[2017-06-24] VITALS: BP 132/64
[2017-06-24 08:00] VITALS: BP 129/69
--- NOTE | 2017-06-24 08:00 | NUR ---
SHIFT ASSESSMENT COMPLETE. PATIENT RESTING IN BED. VOICES NO COMPLAINTS AT THIS TIME. BED IS IN LOW POSITION. CALL LIGHT IS WITHIN REACH.
[2017-06-24] MEDS ORDERED: ASPIRIN CHEWABL81 M1 PO (08:16)
[2017-06-24] MEDS ORDERED: PREDNISONE5 MG PO (08:16)
[2017-06-24] MEDS ORDERED: LINEZOLID600 MG PO (08:16)
[2017-06-24] MEDS ORDERED: MYCOLOG OINTMEN15 GM T (08:16)
[2017-06-24] MEDS ORDERED: DUONEB 3 MG/3 ML3 M1 NEB (08:16)
[2017-06-24] MEDS ORDERED: CEFUROXIME AXE250 MG PO (08:17)
--- NOTE | 2017-06-24 08:34 | NUR ---
SPEECH PATHOLOGY Patient was seen for treatment this am. Patient was sitting upright in bed, alert and cooperative. Oral and pharyngeal exercises were attempted. Patient was able to model oral exercises that clinician performed and he displayed weakness and reduced ROM. Pharyngeal exercises were also attempted. Model and cues were provided but patient had some difficulty comprehending as he is severely PILOT STATION. Sips of water were given both by cup and straw. Patient swallowed in a timely manner. No immediate coughing, choking or wet vocal were displayed. Delayed, congested cough was noted however patient also coughs at rest due to his condition. He currently displays a normal temperature and WBC. Recent CXR revealed interval development possibilty of pleural fluid or increased infiltrate in right lung. Recommend he remain on present diet with continued therapy targeting strengthening exercises, use of safe swallow strategies and education to ensure safe tolerance of oral intake. Patient continues to only eat pancakes and is not receptive to other food items. He does, however, display good intake with pancakes. Continue plan. KOSTAS AVILES MSCCC-PRODUCTION MACHINE TENDER
[2017-06-24 09:16] LABS: BUN 12 mg/dl (7-24); CHLORIDE 106 mmol/L (98-107); CREATININE 0.53 mg/dL (0.70-1.30); SODIUM 142 mmol/L (136-145)
--- NOTE | 2017-06-24 09:41 | NUR ---
Nutritional Support Services Note: Pt remains on a pureed diet, Boost with meals. He loves pancakes and eats them q meal. Other foods are offered but he continues to only want pancakes. Encourage boost intake. Will continue to follow as needed. Anna Guevara
--- NOTE | 2017-06-24 12:05 | NUR ---
Patient discharged to the [facility], transportation scheduled for 1:30 PM with [facility]. Ut, nursing and family notified.
--- NOTE | 2017-06-24 13:45 | NUR ---
Discharge instructions reviewed with patient/family. Patient receptive and verbalizes understanding. Follow-up care arranged. Written instructions given to patient/family. [place] REMOVED INTACT. MONITOR REMOVED. MELISSA GARCIA
--- NOTE | 2017-06-24 14:50 | NUR ---
OCCUPATIONAL THERAPY CO-SIGN I approve of the Occupational Therapy notes written above. SONDRA HERRERA OTR/Álvaro
--- NOTE | 2017-06-25 08:12 | NUR ---
PHYSICAL THERAPY CO-SIGN I approve of the Phyical Therapy notes written above. NEL PONCE PT
== END 2017-06-24 13:45 | disposition other institution (70) | DRG 853 ==
LOC: ED 09:10 → ICCU 10:36 → 4E 10:36 → EDHOLD 10:36 → 5E 10:36 → ICCU 06-09 14:14 → 4E 06-16 05:42
PROVIDERS: Emergency Medicine; Internal Medicine; Internal Medicine Critical Care Medicine; Internal Medicine Gastroenterology; Internal Medicine Hospice and Palliative Medicine; Nurse Practitioner Family; ADMIT Internal Medicine
PROC: 0B958ZZ Drainage of Right Middle Lobe Bronchus, Via Natural or Artificial Opening Endoscopic (ICD-10-PCS; principal; 2017-06-10)
PROC: 0B9B8ZZ Drainage of Left Lower Lobe Bronchus, Via Natural or Artificial Opening Endoscopic (ICD-10-PCS; principal; 2017-06-10)
PROC: 0B978ZZ Drainage of Left Main Bronchus, Via Natural or Artificial Opening Endoscopic (ICD-10-PCS; principal; 2017-06-10)
PROC: 0B988ZZ Drainage of Left Upper Lobe Bronchus, Via Natural or Artificial Opening Endoscopic (ICD-10-PCS; principal; 2017-06-10)
PROC: 0B948ZZ Drainage of Right Upper Lobe Bronchus, Via Natural or Artificial Opening Endoscopic (ICD-10-PCS; principal; 2017-06-10)
PROC: 0B9F8ZX Drainage of Right Lower Lung Lobe, Via Natural or Artificial Opening Endoscopic, Diagnostic (ICD-10-PCS; principal; 2017-06-10)
PROC: 0B968ZZ Drainage of Right Lower Lobe Bronchus, Via Natural or Artificial Opening Endoscopic (ICD-10-PCS; principal; 2017-06-10)
PROC: 0B9J8ZX Drainage of Left Lower Lung Lobe, Via Natural or Artificial Opening Endoscopic, Diagnostic (ICD-10-PCS; principal; 2017-06-10)
PROC: 0BH17EZ Insertion of Endotracheal Airway into Trachea, Via Natural or Artificial Opening (ICD-10-PCS; principal; 2017-06-10)
PROC: 0B938ZZ Drainage of Right Main Bronchus, Via Natural or Artificial Opening Endoscopic (ICD-10-PCS; principal; 2017-06-10)
PROC: 5A1945Z Respiratory Ventilation, 24-96 Consecutive Hours (ICD-10-PCS; principal; 2017-06-10)
PROC: 0B998ZZ Drainage of Lingula Bronchus, Via Natural or Artificial Opening Endoscopic (ICD-10-PCS; principal; 2017-06-10)
PROC: 0B918ZZ Drainage of Trachea, Via Natural or Artificial Opening Endoscopic (ICD-10-PCS; principal; 2017-06-10)
PROC: 0B928ZZ Drainage of Carina, Via Natural or Artificial Opening Endoscopic (ICD-10-PCS; principal; 2017-06-10)
PROC: 5A09557 Assistance with Respiratory Ventilation, Greater than 96 Consecutive Hours, Continuous Positive Airway Pressure (ICD-10-PCS; 2017-06-13)
PROC: BD11YZZ Fluoroscopy of Esophagus using Other Contrast (ICD-10-PCS; 2017-06-18)
PROC: 0W993ZZ Drainage of Right Pleural Cavity, Percutaneous Approach (ICD-10-PCS; 2017-06-23)
DX: A41.9 Sepsis, unspecified organism (principal); I21.4 Non-ST elevation (NSTEMI) myocardial infarction; N17.0 Acute kidney failure with tubular necrosis; J96.21 Acute and chronic respiratory failure with hypoxia; J69.0 Pneumonitis due to inhalation of food and vomit; E43 Unspecified severe protein-calorie malnutrition; J90 Pleural effusion, not elsewhere classified; L89.614 Pressure ulcer of right heel, stage 4; E87.1 Hypo-osmolality and hyponatremia; R13.12 Dysphagia, oropharyngeal phase; J96.22 Acute and chronic respiratory failure with hypercapnia; I47.2 Ventricular tachycardia; J44.1 Chronic obstructive pulmonary disease with (acute) exacerbation; N39.0 Urinary tract infection, site not specified; J98.11 Atelectasis; N13.8 Other obstructive and reflux uropathy; K76.1 Chronic passive congestion of liver; I11.0 Hypertensive heart disease with heart failure; I50.9 Heart failure, unspecified; D63.8 Anemia in other chronic diseases classified elsewhere; R31.9 Hematuria, unspecified; B37.2 Candidiasis of skin and nail; R62.7 Adult failure to thrive; B95.2 Enterococcus as the cause of diseases classified elsewhere; F29 Unspecified psychosis not due to a substance or known physiological condition; B95.62 Methicillin resistant Staphylococcus aureus infection as the cause of diseases classified elsewhere; Z16.21 Resistance to vancomycin; Z66 Do not resuscitate; Z51.5 Encounter for palliative care; D50.9 Iron deficiency anemia, unspecified; J32.0 Chronic maxillary sinusitis; Z96.1 Presence of intraocular lens; M50.30 Other cervical disc degeneration, unspecified cervical region; L89.152 Pressure ulcer of sacral region, stage 2; E83.41 Hypermagnesemia; E87.5 Hyperkalemia; Z96.641 Presence of right artificial hip joint; E87.8 Other disorders of electrolyte and fluid balance, not elsewhere classified; R73.9 Hyperglycemia, unspecified; M13.819 Other specified arthritis, unspecified shoulder; Z96.642 Presence of left artificial hip joint; F32.9 Major depressive disorder, single episode, unspecified; R65.20 Severe sepsis without septic shock; N40.1 Benign prostatic hyperplasia with lower urinary tract symptoms; Z88.0 Allergy status to penicillin; Z88.2 Allergy status to sulfonamides; Z88.8 Allergy status to other drugs, medicaments and biological substances; Z79.899 Other long term (current) drug therapy; Z87.81 Personal history of (healed) traumatic fracture; Z90.49 Acquired absence of other specified parts of digestive tract; Z80.9 Family history of malignant neoplasm, unspecified; Z86.718 Personal history of other venous thrombosis and embolism; Z71.6 Tobacco abuse counseling; Z72.0 Tobacco use; Z99.81 Dependence on supplemental oxygen; Z98.42 Cataract extraction status, left eye; Z98.41 Cataract extraction status, right eye; Z80.59 Family history of malignant neoplasm of other urinary tract organ; Z84.89 Family history of other specified conditions; Z68.33 Body mass index [BMI] 33.0-33.9, adult